=== PATIENT | female | born 1955 | race Caucasian/White ===

== ENCOUNTER → 2019-03-15 07:31 | Outpatient (CLI) | payer OTHER, SELFPAY ==
[2019-03-15 08:33] LABS: Absolute Lymphocyte Count 2.11 X10^3/uL (0.83-4.51); Absolute Neutrophil Count 4.6 X10^3/uL (2.0-7.7); Basophil# 0.07 X10^3/uL; Basophil% 0.9 % (0-1); Eosinophils% 2.7 % (0-5); Hematocrit 42.7 % (37-47); Hemoglobin 14.3 g/dL (12.0-15.0); Lymphocyte # 2.11 X10^3/ul (4.0); Lymphocyte % 28.1 % (19-41); Mean Corp Hgb Conc 33.5 g/dL (32-36); Mean Corpuscular Hgb 31.5 pg (27.0-32.0); Mean Corpuscular Volume 94.1 fL (81-99); Monocyte# 0.52 X10^3/uL; Monocyte% 6.9 % (0-10); NRBC Flagged by Analyzer 0 % (0-5); Neutrophil # 4.59 X10^3/uL (2.7-7.7); Platelet Count 224 K/mm3 (150-450); RBC Distribution Width CV 12.3 % (11.6-14.6); RBC Distribution Width SD 42.4 fl (35.1-43.9); Red Blood Count 4.54 M/mm3 (4.2-5.4); White Blood Count 7.5 K/mm3 (4.4-11.0)
[2019-03-15 09:19] LABS: AST(SGOT) 13 U/L (15-37); Alanine Aminotransfer ALT/SGPT 26 U/L (13-56); Albumin, Serum 3.5 g/dL (3.2-5.0); Alkaline Phosphatase 74 U/L (45-117); Anion Gap 7 (5-15); BUN 14 mg/dL (7-18); BUN/Creat Ratio 19.4 RATIO (10-20); Calcium,Total 8.8 mg/dL (8.5-10.1); Chloride 107 mmol/L (98-107); Cholesterol 208 mg/dL (200); Creatinine, Serum 0.72 mg/dL (0.55-1.02); EST Glomerular Filtration Rate 87 mL/min (>60); Est Glom Filt Rate - Afr Amer 105 mL/min (>60); Globulin 3.4 g/dL (2.2-4.2); Glucose 99 mg/dL (74-106); High Density Lipoprotein 43 mg/dL; Magnesium 2.3 mg/dL (1.6-2.6); Potassium 4.1 mmol/L (3.5-5.1); Protein, Total 6.9 g/dL (6.4-8.2); Sodium Level 141 mmol/L (136-145); Thyroid Stim Hormone (TSH) 3.16 uIU/mL (0.358-3.74); Triglycerides 209 mg/dL; Very Low Density Lipoprotein 42 mg/dL (5-40)
== END ==
PROVIDERS: Family Provider Family Medicine; PCP Family Medicine; Referring Provider Family Medicine; Visit Provider Family Medicine
DX: E78.5 Hyperlipidemia, unspecified (principal); I47.9 Paroxysmal tachycardia, unspecified; F41.0 Panic disorder [episodic paroxysmal anxiety]
CPT/HCPCS: 36415; 80053; 80061; 83735; 84439; 84443; 85025

== ENCOUNTER → 2019-07-19 12:19 | Outpatient (CLI) | payer OTHER, SELFPAY ==
--- NOTE | 2019-07-19 12:22 | BI_ITS ---
MAMMOGRAPHY - BILATERAL SCREENING REASON FOR EXAM: Female, 64 years old. Routine annual screening examination. PERTINENT HISTORY: Non-contributory. Remote bilateral breast reduction surgery. TECHNIQUE: Digital bilateral breast amisha (3D mammographic acquisition) in the CC and MLO projections. 2-D mediolateral oblique (MLO) and craniocaudad (CC) views of both breasts were obtained. CAD: Full Field Digital Mammography with Computer Added Detection was performed. COMPARISON: Comparison is made with prior study dated November 05, 2014 and October 30, 2013. FINDINGS: Breast Composition: The breasts are almost entirely fatty. There are no dominant masses or suspicious calcifications. Stable 2 cm well-defined fatty nodule in the upper lateral aspect of the right breast. This most like represents a fat necrosis. Stable deformity of the retroareolar region of the left breast in keeping with prior surgery. No other significant abnormalities are identified. There has been no significant change since the prior study. BI/SCREEN MAMM (CAD) W/AMISHA BILAT IMPRESSION: Stable bilateral screening mammogram. Yearly follow-up mammogram recommended. (A) ASSESSMENT CATEGORY: BIRADS Category 2: Benign. A letter regarding these results will be sent to the patient by the facility within 30 days. Approximately 10% of breast cancers are not detected by mammography. A normal mammogram should not delay biopsy of a clinically suspicious abnormality. [id number] Electronically Signed: Alfie Mcdonald, at 13:10 EST , Service support ,
== END ==
PROVIDERS: PCP Family Medicine; Referring Provider Family Medicine; Visit Provider Family Medicine
DX: Z12.31 Encounter for screening mammogram for malignant neoplasm of breast (principal)
CPT/HCPCS: 77063; 77067

== ENCOUNTER → 2022-07-09 | Outpatient (CLI) | payer BC, MEDICAID, SELFPAY ==
[2022-07-09 12:11] LABS: Absolute Lymphocyte Count 3.08 X10^3/uL (0.83-4.51); Absolute Neutrophil Count 5.9 X10^3/uL (2.0-7.7); Basophil# 0.08 X10^3/uL; Basophil% 0.8 % (0-1); Eosinophil# 0.25 X10^3/uL; Eosinophils% 2.5 % (0-5); Hematocrit 44.4 % (37-47); Hemoglobin 14.4 g/dL (12.0-15.0); Lymphocyte # 3.08 X10^3/ul (0.83-4.51); Lymphocyte % 30.7 % (19-41); Mean Corp Hgb Conc 32.4 g/dL (32-36); Mean Corpuscular Hgb 31.6 pg (27.0-32.0); Mean Corpuscular Volume 97.4 fL (81-99); Mean Platelet Vol. 11.1 fl (6.2-12.0); Monocyte# 0.65 X10^3/uL; Monocyte% 6.5 % (0-10); NRBC Flagged by Analyzer 0 % (0-5); Neutrophil # 5.94 X10^3/uL (2.7-7.7); Neutrophil % 59.2 % (47-70); Platelet Count 250 K/mm3 (150-450); RBC Distribution Width CV 12.9 % (11.6-14.6); RBC Distribution Width SD 46.1 fl (35.1-43.9); Red Blood Count 4.56 M/mm3 (4.2-5.4)
[2022-07-09 12:31] LABS: Anion Gap 5 (5-15); BUN 12 mg/dL (7-18); BUN/Creat Ratio 14.3 RATIO (10-20); Calcium,Total 8.9 mg/dL (8.5-10.1); Chloride 105 mmol/L (98-107); Cholesterol 228 mg/dL (200); Creatinine, Serum 0.84 mg/dL (0.55-1.02); EST Glomerular Filtration Rate 72 mL/min (>60); Est Glom Filt Rate - Afr Amer 87 mL/min (>60); Glucose 96 mg/dL (74-106); High Density Lipoprotein 46 mg/dL; Potassium 4.4 mmol/L (3.5-5.1); Sodium Level 142 mmol/L (136-145); Thyroid Stim Hormone (TSH) 3.59 uIU/mL (0.358-3.74); Triglycerides 344 mg/dL; Very Low Density Lipoprotein 69 mg/dL (5-40)
== END | disposition home or self-care (01) ==
PROVIDERS: PCP Family Medicine; Visit Provider Family Medicine
DX: Z13.220 Encounter for screening for lipoid disorders (principal); R53.83 Other fatigue
CPT/HCPCS: 36415; 80048; 80061; 84443; 85025

== ENCOUNTER → 2022-09-11 | Outpatient (CLI) | payer MEDICARE, SELFPAY ==
--- NOTE | 2022-09-11 13:50 | CT_ITS ---
STUDY: LOW DOSE CT LUNG CANCER SCREENING REASON FOR EXAM: Female, 67 years old. Current smoker. 50 pack-year history. RADIATION DOSAGE (If Supplied By Facility): CTDIvol = ( 2.39 ) mGy, DLP = ( 80.41 ) mGycm TECHNIQUE: No contrast was administered. Low dose technique was utilized (average mAS-38 and kVp 120). 1.25 mm axial source images with a slice interval of 1.25-mm were reconstructed in lung windows. 2.5 mm axial source images with a slice interval of 2.5-mm were reconstructed in lung windows. 5.0 mm axial source images with a slice interval of 5.0-mm were reconstructed in soft tissue windows. COMPARISON: None. NODULES: Total lung nodules (excluding granulomas): 0 Emphysema: No Endobronchial lesion: No Aorta: Normal CORONARY ARTERIES: Minimal coronary artery calcifications. Heart: Normal Pulmonary artery: Normal Mediastinal nodes: No Other chest and abdominal findings: Minimal degenerative changes of the thoracic spine. CT/Low Dose CT Lung Screening IMPRESSION: Lung-RADS category 1 - Continue annual screening with LDCT in 12 months. IMPORTANT NOTES FOR USE: ACR Lung-RADS Version 1.1 Assessment Categories Release Date: 2018 Category: Coded 0-4 bases on nodule(s) with highest degree of suspicion. Negative screen is defined as categories 1 and 2; a positive screen is defined as categories 3 and 4. Category 3 and 4A nodules that are unchanged on interval CT should be coded as category 2, and individuals returned to screening in 12 months. Category 4X: Category 3 or 4 nodules with additional imaging findings that increase the suspicion of lung cancer, such as spiculation, GGN that doubles in size in 1 year, enlarged lymph notes, etc. Category Modifiers: S (significant finding unrelated to lung cancer) Electronically Signed: Daryl Leblanc DO at 23:32 EDT Reading Location ID and State: [address] [place] [address] Tel [phone], Service support ,
--- NOTE | 2022-09-11 14:01 | BI_ITS ---
MAMMOGRAPHY - BILATERAL SCREENING REASON FOR EXAM: Female, 67 years old. Routine annual screening examination. PERTINENT HISTORY: Non-contributory. History of prior bilateral breast reduction surgery. History of left breast scar. TECHNIQUE: Digital bilateral breast amisha (3D mammographic acquisition) in the CC and MLO projections. 2-D mediolateral oblique (MLO) and craniocaudad (CC) views of both breasts were obtained. CAD: Full Field Digital Mammography with Computer Added Detection was performed. COMPARISON: Comparison is made with prior study dated July 19, 2019 and November 05, 2014. FINDINGS: Breast Composition: The breasts are almost entirely fatty. There are no dominant masses or suspicious calcifications. Stable 2 cm well-defined fat containing nodule in the upper lateral aspect of the right breast. Stable deformity of the retroareolar region of the left breast in keeping with prior surgery and postoperative scarring. Stable small benign-appearing bilateral axillary lymph nodes. No other significant abnormalities are identified. There has been no significant change since the prior study. BI/SCRN MAMM (CAD)W/AMISHA BILAT IMPRESSION: Stable bilateral screening mammogram. Yearly follow-up mammogram recommended. (A) ASSESSMENT CATEGORY: BIRADS Category 2: Benign. A letter regarding these results will be sent to the patient by the facility within 30 days. Approximately 10% of breast cancers are not detected by mammography. A normal mammogram should not delay biopsy of a clinically suspicious abnormality. [id number] Electronically Signed: Alfie Mcdonald MD at 15:22 EDT ,
== END | disposition home or self-care (01) ==
PROVIDERS: PCP Family Medicine; Visit Provider Family Medicine
DX: Z12.31 Encounter for screening mammogram for malignant neoplasm of breast (principal); Z87.891 Personal history of nicotine dependence; Z85.3 Personal history of malignant neoplasm of breast
CPT/HCPCS: 71271; 77063; 77067

== ENCOUNTER → 2023-02-04 | Outpatient (CLI) | payer MEDICARE, SELFPAY ==
[2023-02-04 12:35] LABS: AST(SGOT) 16 U/L (15-37); Alanine Aminotransfer ALT/SGPT 34 U/L (13-56); Albumin, Serum 3.6 g/dL (3.2-5.0); Alkaline Phosphatase 71 U/L (45-117); Bilirubin, Direct 0.11 mg/dL (0.00-0.30); Cholesterol 148 mg/dL (200); Globulin 3.2 g/dL (2.2-4.2); High Density Lipoprotein 42 mg/dL; Protein, Total 6.8 g/dL (6.4-8.2); Triglycerides 263 mg/dL; Very Low Density Lipoprotein 53 mg/dL (5-40)
== END | disposition home or self-care (01) ==
LOC: BFHLAB 08:45
PROVIDERS: PCP Family Medicine; Referring Provider Family Medicine; Visit Provider Family Medicine
DX: E78.1 Pure hyperglyceridemia (principal)
CPT/HCPCS: 36415; 80061; 80076

== ENCOUNTER → 2023-08-05 | Outpatient (CLI) | payer MEDICARE, SELFPAY ==
[2023-08-05 10:20] LABS: Absolute Lymphocyte Count 2.55 X10^3/uL (0.83-4.51); Absolute Neutrophil Count 4.5 X10^3/uL (2.0-7.7); Basophil# 0.08 X10^3/uL; Eosinophil# 0.19 X10^3/uL; Eosinophils% 2.4 % (0-5); Hematocrit 42.4 % (37-47); Hemoglobin 13.9 g/dL (12.0-15.0); Lymphocyte # 2.55 X10^3/ul (0.83-4.51); Lymphocyte % 32.4 % (19-41); Mean Corp Hgb Conc 32.8 g/dL (32-36); Mean Corpuscular Hgb 31.5 pg (27.0-32.0); Mean Corpuscular Volume 96.1 fL (81-99); Mean Platelet Vol. 10.6 fl (6.2-12.0); Monocyte# 0.53 X10^3/uL; Monocyte% 6.7 % (0-10); NRBC Flagged by Analyzer 0 % (0-5); Neutrophil # 4.51 X10^3/uL (2.7-7.7); Neutrophil % 57.2 % (47-70); Platelet Count 216 K/mm3 (150-450); RBC Distribution Width CV 12.6 % (11.6-14.6); RBC Distribution Width SD 44.7 fl (35.1-43.9); Red Blood Count 4.41 M/mm3 (4.2-5.4); White Blood Count 7.9 K/mm3 (4.4-11.0)
--- OUTSIDE RECORDS SUMMARY | 2023-08-05 10:35 | XMS RPT_ITS | CCD ---
Author Name Unknown Address [address] [place] [address] Organization [facility] Care Team Providers Care Rivet Flunky Name Role Phone Maisha Sanchez Unavailable Unavailable Josef LOCK, Branden Craft Unavailable [phone] Ame Urrutia Unavailable Unavailable Allergies Allergy Classification Reported Allergen(s) Allergy Type Date of Onset Reaction(s) Facility (3 sources) oxyCODONE drug allergy 12-31-[address] [facility] Work Phone: Medications Completed/Discontinued Medications Medication Drug Class(es) Dates Sig (Normalized) Sig (Original) metFORMIN hydrochloride 500 mg oral tablet (2 sources) Biguanide Start: 12-31-2016 take 1 tablet by mouth twice daily GLUCOPHAGE 500 MG TABS One tablet by mouth twice daily METFORMIN HCL [id number] Branden Bahena MD Drug Treatment Unknown - unknown (1 source) No information available. Problems Active Problems Problem Classification Problem Date Documented Da te Episodic/Chronic Other upper respiratory disease (2 sources) Seasonal allergy; Translations: [Other seasonal allergic rhinitis] Onset: 12-31-2016 12-31-2016 Chronic Unclassified (1 source) No current problems or disability 12-31-2016 Past or Other Problems Problem Classification Problem Date Documented Da te Episodic/Chronic Anal and rectal conditions (2 sources) Rectal prolapse; Translations: [Rectal prolapse] Onset: 12-31-2016 12-31-2016 Episodic Gastrointestinal hemorrhage (2 sources) Hematochezia; Translations: [Melena] Onset: 12-31-2016 01-01-2017 Episodic Hemorrhoids (2 sources) Other hemorrhoids; Translations: [Other hemorrhoids] Onset: 12-31-2016 12-31-2016 Episodic Results Test Name Value Interpretation Reference Range Facil ity Vital Signs Date Time Vital Sign Value Performing Clinician Facility 12-31-2016 14:11-0400 BMI (Body Mass Index) 30.38 kg/m2 Branden Bahena MD [facility] [employer] Work Phone: 12-31-2016 14:11-0400 Body Temperature 97.7 [degF] Branden Bahena MD [facility] [employer] Work Phone: 12-31-2016 14:11-0400 BP Diastolic 75 mm[Hg] Branden Bahena MD [facility] [employer] Work Phone: 12-31-2016 14:11-0400 BP Systolic 106 mm[Hg] Branden Bahena MD [facility] [employer] Work Phone: 12-31-2016 14:11-0400 Height 172.72 cm Branden Bahena MD [facility] [employer] Work Phone: 12-31-2016 14:11-0400 Pulse (Heart Rate) 93 /min Branden Bahena MD [facility] [employer] Work Phone: 12-31-2016 14:11-0400 Respiratory Rate 20 /min Branden Bahena MD [facility] [employer] Work Phone: 12-31-2016 14:11-0400 Weight 90.63 kg Branden Bahena MD [facility] [employer] Work Phone: Procedures Date Procedure Procedure Detail Performing Clinician Start: 12-31-2016 End: 12-31-2016 Dietary management education, guidance, and counseling Branden Bahena MD Plan of Treatment Date Care Activity Detail Author Start: 12-31-2016 End: 12-31-[address] [facility] Work Phone: Start: 12-31-2016 End: 01-04-2017 Colonoscopy flx dx w/collj spec when pfrmd Colonoscopy [facility] [employer] Work Phone: Summary Purpose Family History No Family History Records Found Advance Directives No Advanced Directives Records Found Additional Source Comments INFORMATION SOURCE (unrecogn ized section and content) FOR RECORDS PERTAINING TO PATIENTS WHO ARE OR HAVE BEEN ENROLLED IN A CHEMICAL DEPENDENCY/SUBSTANCEABUSE PROGRAM, SOME INFORMATION MAY BE OMITTED. This clinical summary was aggregated from multiple sources. Caution should be exercised in using it in the provision of clinical care. This summary normalizes information from multiple sources, and as a consequence, information in this document may materially change the coding, format and clinical context of patient data. In addition, data may be omitted in some cases. CLINICAL DECISIONS SHOULD BE BASED ON THE PRIMARY CLINICAL RECORDS. [facility]. provides no warranty or guarantee of the accuracy or completeness of information in this document.
[2023-08-05 10:57] LABS: AST(SGOT) 19 U/L (15-37); Alanine Aminotransfer ALT/SGPT 27 U/L (13-56); Albumin, Serum 3.5 g/dL (3.2-5.0); Alkaline Phosphatase 80 U/L (45-117); Anion Gap 3 (5-15); BUN 15 mg/dL (7-18); BUN/Creat Ratio 18.8 RATIO (10-20); Calcium,Total 8.9 mg/dL (8.5-10.1); Chloride 110 mmol/L (98-107); Cholesterol 174 mg/dL (200); EST Glomerular Filtration Rate 76 mL/min (>60); Est Glom Filt Rate - Afr Amer 92 mL/min (>60); Globulin 3.5 g/dL (2.2-4.2); Glucose 95 mg/dL (74-106); High Density Lipoprotein 44 mg/dL; Potassium 4.1 mmol/L (3.5-5.1); Sodium Level 143 mmol/L (136-145); Triglycerides 302 mg/dL; Very Low Density Lipoprotein 60 mg/dL (5-40)
[2023-08-05 11:10] LABS: Hemoglobin A1c 5.6 % (3.8-5.6)
== END | disposition home or self-care (01) ==
LOC: LAB 09:43
PROVIDERS: PCP Family Medicine; Referring Provider Nurse Practitioner Family; Visit Provider Nurse Practitioner Family
DX: E78.5 Hyperlipidemia, unspecified (principal); I10 Essential (primary) hypertension; R73.01 Impaired fasting glucose
CPT/HCPCS: 36415; 80053; 80061; 83036; 85025

== ENCOUNTER → 2023-09-13 | Outpatient (CLI) | payer MEDICARE, SELFPAY ==
--- NOTE | 2023-09-13 09:44 | BI_ITS ---
MAMMOGRAPHY - BILATERAL SCREENING REASON FOR EXAM: Female, 68 years old. Routine annual screening examination. PERTINENT HISTORY: Non-contributory. History of prior bilateral breast reduction surgery. TECHNIQUE: Digital bilateral breast amisha (3D mammographic acquisition) in the CC and MLO projections. 2-D mediolateral oblique (MLO) and craniocaudad (CC) views of both breasts were obtained. CAD: Full Field Digital Mammography with Computer Added Detection was performed. COMPARISON: Comparison is made with prior study dated September 11, 2022 and July 19, 2019. FINDINGS: Breast Composition: The breasts are almost entirely fatty. There are no dominant masses or suspicious calcifications. Stable 2 cm well-defined fat-containing nodule in the upper lateral aspect of the right breast suggestive of fat necrosis. Stable deformity of the retroareolar region of the left breast and keep with prior surgical intervention. Stable small benign-appearing bilateral axillary lymph nodes. No other significant abnormalities are identified. There has been no significant change since the prior study. BI/SCRN MAMM (CAD)W/AMISHA BILAT IMPRESSION: Stable bilateral screening mammogram. Yearly follow-up mammogram recommended. (A) ASSESSMENT CATEGORY: BIRADS Category 2: Benign. A letter regarding these results will be sent to the patient by the facility within 30 days. Approximately 10% of breast cancers are not detected by mammography. A normal mammogram should not delay biopsy of a clinically suspicious abnormality. [id number] Electronically Signed: Alfie Mcdonald MD at 11:18 EDT ,
== END | disposition home or self-care (01) ==
LOC: OPBI 09:42
PROVIDERS: PCP Family Medicine; Referring Provider Nurse Practitioner Family; Visit Provider Nurse Practitioner Family
DX: Z12.31 Encounter for screening mammogram for malignant neoplasm of breast (principal)
CPT/HCPCS: 77063; 77067

== ENCOUNTER 2023-10-05 08:07 | Outpatient (CLI) | payer MEDICARE, SELFPAY ==
--- NOTE | 2023-10-05 08:17 | BD_ITS ---
STUDY: DUAL ENERGY X-RAY ABSORPTIOMETRY / DXA REASON FOR EXAM: Female, 68 years old. 733.00OsteoporosisBONE DENSITY REASON FOR EXAM TECHNIQUE: Bone Mineral Density (BMD) measurements of lumbar spine and bilateral hips were obtained. COMPARISON: None. FINDINGS: Lumbar Spine (L1-L4): g/cm2 (1.380) / T-score (3.6) / Z-score (5.4) Findings are suggestive of normal bone density with a low fracture risk. Left Femur Total: g/cm2 (1.264) / T-score (2.6) / Z-score (3.9) Left Femoral Neck: g/cm2 (1.013) / T-score (1.5) / Z-score (3.1) Right Femur Total: g/cm2 (1.245) / T-score (2.5) / Z-score (3.8) Right Femoral Neck: g/cm2 (0.999) / T-score (1.4) / Z-score (2.9) BD/Dexa Bone Density Study IMPRESSION: The patient is considered normal as outlined below according to World Ismael Organization (WHO) criteria with a low fracture risk. Reference Information: The T-score is the number of standard deviations above or below the standard which is normal for young adults at their peak bone mineral density. The World Health Organization (WHO) interprets the T-scores as follows: Above -1 Normal bone density Between -1 and -2.5 Osteopenia Equal to / or below -2.5 Osteoporosis As a practical clinical guideline, osteopenia may be graded as follows: Mild -1 through -1.5 Moderate -1.6 through -2.0 Severe -2.1 through -2.4 The Z-score is the number of standard deviations above or below age-matched controls. A Z-score of less than -1.5 would be considered abnormal. References: 1. NIH Osteoporosis and Related Bone Diseases www osteo.org 2. International Society for Clinical Densitometry www iscd.org 3. National Osteoporosis Foundation www nof.org Electronically Signed: Alfie Mcdonald MD at 11:04 EDT ,
== END 2023-10-05 23:59 | disposition home or self-care (01) ==
LOC: OPBD 08:08
PROVIDERS: PCP Family Medicine; Referring Provider Nurse Practitioner Family; Visit Provider Nurse Practitioner Family
DX: Z13.820 Encounter for screening for osteoporosis (principal); M85.89 Other specified disorders of bone density and structure, multiple sites
CPT/HCPCS: 77080

== ENCOUNTER → 2024-08-16 | Outpatient (CLI) | payer MEDICARE, SELFPAY ==
[2024-08-16 06:34] LABS: Absolute Lymphocyte Count 1.88 X10^3/uL (0.83-4.51); Absolute Neutrophil Count 3.1 X10^3/uL (2.0-7.7); Basophil# 0.05 X10^3/uL; Basophil% 0.9 % (0-1); Eosinophil# 0.18 X10^3/uL; Eosinophils% 3.2 % (0-5); Hematocrit 38.7 % (37-47); Hemoglobin 12.7 g/dL (12.0-15.0); Lymphocyte # 1.88 X10^3/ul (0.83-4.51); Lymphocyte % 33.5 % (19-41); Mean Corp Hgb Conc 32.8 g/dL (32-36); Mean Corpuscular Volume 94.4 fL (81-99); Mean Platelet Vol. 10.1 fl (6.2-12.0); Monocyte# 0.38 X10^3/uL; Monocyte% 6.8 % (0-10); NRBC Flagged by Analyzer 0 % (0-5); Neutrophil % 55.2 % (47-70); Platelet Count 206 K/mm3 (150-450); RBC Distribution Width CV 12.8 % (11.6-14.6); White Blood Count 5.6 K/mm3 (4.4-11.0)
[2024-08-16 07:07] LABS: ALB/GLOB Ratio 1.7 RATIO (0.9-2.4); AST(SGOT) 18 U/L (<=31); Alanine Aminotransfer ALT/SGPT 21 U/L (<=34); Albumin, Serum 4.2 g/dL (3.4-4.8); Alkaline Phosphatase 63 U/L (35-104); Anion Gap 11 (5-15); BUN 12 mg/dL (4-19); BUN/Creat Ratio 15.3 RATIO (10-20); Calcium 8.8 mg/dL (7.6-11.0); Carbon Dioxide 26.3 mmol/L (22.0-29.0); Chloride 105 mmol/L (96-108); Cholesterol 190 mg/dL (<=200); Creatinine, Serum 0.8 mg/dL (0.6-1.0); EST Glomerular Filtration Rate 80 (>60); Globulin 2.5 g/dL (2.2-4.2); Glucose 102 mg/dL (70-99); High Density Lipoprotein 64 mg/dL; Low Density Lipoprotein Calc. 72 mg/dL; Potassium 4.2 mmol/L (3.3-5.1); Protein, Total 6.6 g/dL (5.9-8.4); Sodium Level 142 mmol/L (133-145); Total Bilirubin 0.35 mg/dL (0.00-1.30); Triglycerides 274 mg/dL; Very Low Density Lipoprotein 55 mg/dL (5-40); cholesterol:hdl ratio screen 2.99
[2024-08-16 19:43] LABS: Hemoglobin A1c 5.9 % (<=5.6)
== END | disposition home or self-care (01) ==
LOC: LAB 06:16
PROVIDERS: PCP Family Medicine; Referring Provider Family Medicine; Visit Provider Family Medicine
DX: E78.5 Hyperlipidemia, unspecified (principal); I10 Essential (primary) hypertension; R73.01 Impaired fasting glucose
CPT/HCPCS: 36415; 80053; 80061; 83036; 85025

== ENCOUNTER → 2024-08-26 | Outpatient (CLI) | payer MEDICARE, SELFPAY ==
--- NOTE | 2024-08-26 07:47 | CT_ITS ---
PROCEDURE: LOW DOSE CT LUNG SCREENING REASON FOR EXAM: Personal history of nicotine dependence TECHNIQUE: Low Dose CT Lung Screening without contrast COMPARISON: None. FINDINGS: Heart size is within normal limits. No significant pericardial effusion. Mild LAD coronary artery calcifications. Normal caliber thoracic aorta and pulmonary arteries. No bulky adenopathy. No suspicious findings in the visualized upper abdomen. Superficial soft tissues are within normal limits. Central airways are patent. No acute infiltrates, pleural effusion or pneumothorax. Mostly calcified 5 mm nodule in the posterior right lower lobe. No other nodules or masses. No acute osseous abnormality. CT/Low Dose CT Lung Screening IMPRESSION: 1. BASED ON THE ACR LUNG RADS FOR THE MOST SUSPICIOUS NODULE (IF ANY) DESCRIBE D IN THIS REPORT, THE OVERALL LUNG RADS SCORE IS 1. 2. SMOKING CESSATION COUNSELING IS RECOMMENDED IF THE PATIENT IS STILL SMOKING . 3. Coronary artery calcifications. One or more dose reduction techniques were used (e.g., Automated exposure contr ol, adjustment of the mA and/or kV according to patient size, use of iterative reconstruction technique). The following information is provided for reference:Lung-RADS 2021 Assessment C ategories. Additional information involving Lung-RADS is available at www.acr.org. 0-INCOMPLETE 1-NEGATIVE:No nodules or definitely benign nodules. Complete, central, popcorn , or centric ring calcifications OR fat containing 2-BENIGN APPEARANCE (based on imaging features or indolent behavior). Juxtaple ural nodule: < 10mm AND solid; smooth margins; oval, lentiform, or triangular shape Solid nodule: <6mm at baseline or new< 4mm Part solid Nodule: < 6mm total mean diameter at baseline Nonsolid nodule:(GGN) < 30mm OR >=30mm stable or slowly growing Airway nodule, subsegmental at baseline, new, or stable Category 3 nodule stabl e or decreased in size at 6-month follow-up CT or Category 3 or 4A nodules that resolve on follow-up OR category 4B findings prov en to be benign following diagnotic work up. 3 - Probably Benign (Based on imaging features or behavior) Solid Nodule: >= 6 to <8mm at baseline OR new 4 to <6mm Part-solid nodule: >= 6mm toal mean diam. with solid component <6mm at baseline OR new < 6mm total mean diam. Non-solid nodule: GGN >= 30mm at baseline or new Atypical pulmonary cyst: Growing cystic component (mean diam.) of thick-walled cyst Category 4A nodule stable or decreased in size at 3-month follow-up CT (excl.ai rway). 4A - Suspicious Solid nodule: >=8 to < 15mm at baseline OR growing < 8mm OR new 6 to < 8mm Part solid nodule: >= 6mm total mean diam. w/ solid component >=6mm to < 8mm at baseline OR new or growing < 4mm solid component Airway nodule, segmental or more proximal at baseline or new Atypical pulmonary cyst: Thick-walled OR multilocular at baseline OR becomes mu ltilocular 4B - Very Suspicious Airway nodule, segmental or more proximal, and stable or growing Solid nodule: >= 15mm at baseline OR new or growing >= 8mm Part solid nodule: Solid component >= 8mm OR new or growing >= 4mm solid compon ent Atypical pulmonary cyst: Thick-walled with growing wall thickness/nodularity OR Growing multilocular (mean diam.) OR Multilocular with increased loculation or new/increased opacity Slow-growing solid or part solid nodule w/ growth over multiple screening exams 4X - Very Suspicious Category 3 or 4 nodules with additional features that increase the suspicion fo r lung cancer. S - Clinically Significant or potentially significant findings (non-lung cancer ) Reading Location: [facility]
== END | disposition home or self-care (01) ==
LOC: CT 07:45
PROVIDERS: PCP Family Medicine; Referring Provider Family Medicine; Visit Provider Family Medicine
DX: Z12.2 Encounter for screening for malignant neoplasm of respiratory organs (principal); Z87.891 Personal history of nicotine dependence
CPT/HCPCS: 71271

== ENCOUNTER → 2024-09-13 | Outpatient (CLI) | payer MEDICARE, SELFPAY ==
--- NOTE | 2024-09-13 11:55 | BI_ITS ---
EXAM: SCRN MAMM (CAD)W/AMISHA BILAT DATE: 09/13/2024 CLINICAL HISTORY: F, Age 69 y/o , SCREENING The patient has had bilateral breast reduction surgery. BREAST CANCER RISK ASSESSMENT: Does not appear to have been calculated. TECHNIQUE: Bilateral screening digital breast tomosynthesis with 2D and 3D images. Computer aided detection. COMPARISON: Prior exam(s) dated 09/13/1999 and 09/11/2022. FINDINGS: TISSUE DENSITY: The breast tissue is almost entirely fatty. Bilateral Breast Mammographic Findings: No suspicious masses or suspicious microcalcifications are seen in either breast. Stable architectural distortion is seen in both breasts from prior breast reduction surgery. Benign-appearing round microcalcifications and macrocalcifications are seen. There is no mammographic abnormality identified in either breast to suggest malignancy. BI/SCRN MAMM (CAD)W/AMISHA BILAT IMPRESSION: Right Breast: BIRADS 2 BENIGN FINDING. Left Breast: BIRADS 2 BENIGN FINDING. OVERALL FINAL ASSESSMENT: BIRADS 2 BENIGN FINDING RECOMMENDATION: Routine annual follow-up in 1 Year A letter with findings and recommendations will be mailed to the patient. Reading Location: [id number]
== END | disposition home or self-care (01) ==
LOC: OPBI 11:54
PROVIDERS: PCP Family Medicine; Referring Provider Family Medicine; Visit Provider Family Medicine
DX: Z12.31 Encounter for screening mammogram for malignant neoplasm of breast (principal)
CPT/HCPCS: 77063; 77067

== ENCOUNTER 2024-11-24 09:33 | Outpatient (CLI) | payer MEDICARE, SELFPAY ==
--- NOTE | 2024-11-24 09:36 | RAD_ITS ---
EXAM: XR Left Knee Complete, 4 or More Views CLINICAL INDICATION: PAIN IN KNEE TECHNIQUE: Four or more views of the left knee. COMPARISON: No relevant prior studies available. FINDINGS: BONES/JOINTS: Unremarkable. No acute fracture. No dislocation. SOFT TISSUES: Unremarkable. RAD/Knee 4 or More Views IMPRESSION: No acute fracture. Reading Location: [id number]
== END 2024-11-24 23:59 | disposition home or self-care (01) ==
LOC: MTRAD 09:34
PROVIDERS: PCP Family Medicine; Referring Provider Family Medicine; Visit Provider Family Medicine
DX: M25.562 Pain in left knee (principal)
CPT/HCPCS: 73564

== ENCOUNTER 2024-12-19 19:27 | Emergency (ER) | payer MEDICARE, SELFPAY ==
[2024-12-19] VITALS (9 sets, daily range): BP systolic 102–126; BP diastolic 69–84; PULSE 78–107; RESP 15–24; TEMP 36.1; O2SAT 85–98; BMI 30.2
--- NOTE | 2024-12-19 19:33 | EKG12_ITS ---
Test Reason : PALPITATIONS Blood Pressure : */* mmHG Vent. Rate : 105 BPM Atrial Rate : 105 BPM P-R Int : 154 ms QRS Dur : 78 ms QT Int : 350 ms P-R-T Axes : 29 -3 22 degrees QTcB Int : 462 ms Sinus tachycardia Inferior infarct , age undetermined Cannot rule out Anterior infarct , age undetermined Abnormal ECG Confirmed by IRIS LOCK, LYNETTE ([id number]), editorial intern JESSICA SCHMIDT ([id number]) on 12/20/2024 1:49:44 PM Referred By: DARBY Confirmed By: LYNETTE SIMMONS MD
--- NOTE | 2024-12-19 19:33 | EKG12_ITS ---
Test Reason : PALPITATIONS Blood Pressure : */* mmHG Vent. Rate : 105 BPM Atrial Rate : 105 BPM P-R Int : 154 ms QRS Dur : 78 ms QT Int : 350 ms P-R-T Axes : 29 -3 22 degrees QTcB Int : 462 ms Sinus tachycardia Inferior infarct , age undetermined Cannot rule out Anterior infarct , age undetermined Abnormal ECG Confirmed by IRIS LOCK, LYNETTE ([id number]), commissioning editor JESSICA SCHMIDT ([id number]) on 12/20/2024 1:49:44 PM Referred By: DARBY Confirmed By: LYNETTE SIMMONS MD
--- NOTE | 2024-12-19 19:33 | RAD_ITS ---
PROCEDURE: CHEST 1 VIEW (PORTABLE) 12/19/2024 REASON FOR EXAM: CHEST PAIN TECHNIQUE: Frontal view of the chest. COMPARISON: CT chest on 08/26/2024 FINDINGS: Hardware: None Heart: Not significantly enlarged. Aortic atherosclerosis. Lungs: No focal consolidation or pleural effusion. Eventration of the right hemidiaphragm. Bones: Degenerative changes are identified within the thoracic spine. RAD/Chest 1 View (Portable) IMPRESSION: No acute cardiopulmonary abnormality. Reading Location: [facility]
--- NOTE | 2024-12-19 19:33 | RAD_ITS ---
PROCEDURE: CHEST 1 VIEW (PORTABLE) 12/19/2024 REASON FOR EXAM: CHEST PAIN TECHNIQUE: Frontal view of the chest. COMPARISON: CT chest on 08/26/2024 FINDINGS: Hardware: None Heart: Not significantly enlarged. Aortic atherosclerosis. Lungs: No focal consolidation or pleural effusion. Eventration of the right hemidiaphragm. Bones: Degenerative changes are identified within the thoracic spine. RAD/Chest 1 View (Portable) IMPRESSION: No acute cardiopulmonary abnormality. Reading Location: [facility]
[2024-12-19 20:04] LABS: Hematocrit 38.6 % (37-47); Hemoglobin 13.2 g/dL (12.0-15.0); Immature Granulocytes Count 0.060 X10^3/uL (0.0-0.0); Mean Corp Hgb Conc 34.2 g/dL (32-36); Mean Corpuscular Volume 90.8 fL (81-99); Mean Platelet Vol. 10.5 fl (6.2-12.0); NRBC Flagged by Analyzer 0 % (0-5); Platelet Count 204 K/mm3 (150-450); RBC Distribution Width CV 12.2 % (11.6-14.6); RBC Distribution Width SD 40.3 fl (35.1-43.9); Red Blood Count 4.25 M/mm3 (4.2-5.4); White Blood Count 12.0 K/mm3 (4.4-11.0)
--- NOTE | 2024-12-19 20:28 | CT_ITS ---
PROCEDURE: CTA CHEST W/WO CONTRAST 12/19/2024 REASON FOR EXAM: PE, SHORTNESS OF BREATH TECHNIQUE: CTA CHEST W/WO CONTRAST Multiplanar Sagittal and Coronal images were obtained. 3D post processing was performed CONTRAST: Isovue 370 VOLUME: 100 mL One or more dose reduction techniques were used (e.g., Automated exposure control, adjustment of the mA and/or kV according to patient size, use of iterative reconstruction technique). RADIATION DOSE SUMMARY: CTDlvol: 14.3 mGy DLP: 445 mGycm COMPARISON: CT chest 08/26/2024 FINDINGS: Hardware: None. Lymph nodes: No significant lymphadenopathy. Heart: There is bowing of the interventricular septum towards the left ventricle. RV/LV Diameter Ratio is approximately 2. Mild coronary calcifications. Thoracic Aorta: No thoracic aortic aneurysm or dissection. Calcified atherosclerosis. Pulmonary Vessels: There are pulmonary emboli bilaterally coming beginning at the right interlobar artery and distal aspect of the left main pulmonary artery, and extending into the lobar, segmental, and subsegmental branches in every lobe. The main pulmonary artery measures 2.9 cm in diameter, at the upper limit of normal. Lungs and Airways: Central airways are predominantly clear. Calcified granuloma in the right lower lobe. No focal consolidation. Pleura: No effusion. Upper Abdomen: There is reflux of contrast into the IVC and hepatic veins. Bones: Unremarkable CT/CTA Chest W/WO Contrast IMPRESSION: 1. Extensive bilateral pulmonary emboli, with the most proximal emboli located at the right interlobar artery and distal left main pulmonary artery. 2. Findings which are worrisome for right heart strain including bowing of the interventricular septum and reflux of contrast into the hepatic veins. [place] Alert: Pulmonary emboli with suggestion of right heart strain The critical information above was relayed directly by me by telephone to Derik Diego on 12/19/2024 at 9:13 pm with readback verification. Reading Location: [id number]
[2024-12-19 20:33] LABS: Anion Gap 15 (5-15); BUN 14 mg/dL (4-19); BUN/Creat Ratio 16.4 RATIO (10-20); Calcium,Total 9.5 mg/dL (7.6-11.0); Carbon Dioxide 23.7 mmol/L (21.0-32.0); Chloride 100 mmol/L (98-108); Estimated Creatinine Clearance 73.76 ml/min (50-250); Glucose 142 mg/dL (70-99); Potassium 3.5 mmol/L (3.3-5.1)
[2024-12-19 20:39] LABS: Troponin T High Sensitivity 55 ng/L (<=14)
--- NOTE | 2024-12-19 20:42 | ED.VIS.CHEST ---
HPI History of Present Illness Chief Complaint: Palpitations Narrative Narrative: Chief complaint and HPI: Palpitations. 69-year-old female with past medical history of HLD presents for evaluation of palpitations and exertional shortness of breath. Patient states for the past 3 days she has been having progressively worsening exertional shortness of breath. Denies any orthopnea. Denies any bilateral lower extremity swelling or pain. Patient denies any chest pain but states with her exertional dyspnea she develops palpitations. States she recently had surgery approximately 1 month ago on her teeth. Not on blood thinners. She denies any fever, chills, URI symptoms, cough, abdominal pain, nausea, vomiting. Review of systems: See HPI Medications: As listed on the chart Allergies: As listed on the chart PFSH: Per chart Vital signs: As listed on the chart. Reviewed. Physical exam: Gen: A&O x3, NAD Head: Normocephalic, atraumatic Eyes: No sclera icterus, conjunctiva clear ENT: Moist mucous membranes Neck: Trachea midline, No JVD CV: Tachycardic, regular rhythm, no murmurs, no peripheral edema Resp: Lungs CTA BL, no w/r/c, on 2 L nasal cannula GI: Abd soft, non-distended, non-tender, no r/r/g Musc: Full ROM, no deformity Skin: Warm, dry Neuro: Alert, oriented, grossly intact, sensation intact Psych: Cooperative, appropriate mood and affect [facility] Medical History Hyperlipemia Hx of smoking Dental implant pain Home Medications ?Medication ?Instructions ?Recorded ?Last Taken ?Type atorvastatin 10 mg tablet 10 mg PO QHS 12/19/24 Unknown History fenofibrate nanocrystallized 145 145 mg PO DAILY 12/19/24 Unknown History mg tablet Held on 12/19/24. Instructions: stop taking d/t knee pain multivitamin .ROUTE 12/19/24 Unknown History Allergy/AdvReac Type Severity Reaction Status Date / Time No Known Allergies Allergy Verified 12/19/24 19:27 Surgical History H/O: hysterectomy Hx of breast reduction, elective Social History Smoking Status: Heavy Smoker (>10/day) EXAM Physical Exam Const Vital Signs: 12/19/24 19:27 12/19/24 19:28 12/19/24 19:33 Temperature 97 F L Temperature Source Temporal Pulse Rate 107 H Respiratory Rate 16 Respiratory Effort Blood Pressure 120/79 Blood Pressure Mean 92 Pulse Ox 95 87 95 Oxygen Delivery Method Nasal Cannula Room Air Oxygen Flow Rate (L/min) 2 2 12/19/24 20:13 12/19/24 20:27 12/19/24 20:44 Temperature Temperature Source Pulse Rate 91 Respiratory Rate 19 H Respiratory Effort Short of Breath Blood Pressure 122/84 H Blood Pressure Mean 96 Pulse Ox 85 94 Oxygen Delivery Method Room Air Nasal Cannula Oxygen Flow Rate (L/min) 2 12/19/24 20:49 12/19/24 21:50 12/19/24 22:00 Temperature 98.1 F Temperature Source Pulse Rate 88 82 79 Respiratory Rate 24 H 19 H 18 Respiratory Effort Blood Pressure 102/69 110/73 123/74 H Blood Pressure Mean 80 85 90 Pulse Ox 98 99 95 Oxygen Delivery Method Nasal Cannula Nasal Cannula Oxygen Flow Rate (L/min) 2 2 MDM MDM MDM Narrative Medical decision making narrative: 69-year-old female with past medical history of HLD presents for evaluation of palpitations and exertional shortness of breath. Associated symptoms are palpitations. Patient recently had surgery approximately 1 month ago on her teeth. Patient was found to be hypoxic at 87% on room air. Placed on 2 L nasal cannula with improvement in oxygen saturations. Otherwise vitals are unremarkable except for mild tachycardia. Differential diagnosis includes but is not limited to PE, ACS, pneumonia, CHF, electrolyte abnormality, [place], thyroid disease. Patient currently not having any chest pain. NS bolus ordered with CTA chest given high risk for PE. CBC with leukocytosis of 12. No anemia. Platelets unremarkable. BMP relatively unremarkable except for hyperglycemia. Magnesium level unremarkable. TSH unremarkable. Troponin elevated at 55. Although patient is not having any chest pain aspirin ordered. BNP elevated at 2686. CT chest positive for PE. Patient has extensive bilateral pulmonary emboli with the most proximal emboli located at the right interlobar artery and distal left main pulmonary artery. Findings worsen for right heart strain including bowing of the interventricular septum and reflux of contrast into the hepatic veins. I personally spoke to radiology about the findings. IV heparin ordered with bolus. Patient was updated of all the results. On reevaluation, patient's tachycardia has resolved. Her vitals are stable without hypotension. I spoke with her hospitalist service, Dr. Wan. Agrees that patient will meet ICU admission however recommends me talking to vascular for possible thrombectomy candidate. I reached out to [facility] And spoke to their critical care team Dr. Elder. Agrees that patient may be a thrombectomy candidate and accepted admission to their ICU. Transport will be arranged once ICU bed is available. Patient was updated on the plan and confirmed understanding of the plan. Patient now does endorse that she has been having left knee pain with some swelling prior to surgery. States that she was told she had a Hutson's cyst in there however nobody ever ruled out a DVT. I do not have ultrasound available at this time to evaluate for DVT. This will need to be performed at outlying facility. EKG: Interpreted by me/EM physician: EKG shows sinus tachycardia with a heart rate of 105. Patient has nonspecific ST changes. I do not have a previous EKG to compare Diagnostic: Interpreted by me/EM physician: Chest x-ray without cardiomegaly, pneumothorax, pneumonia, effusion. Radiology in agreement. 45 minutes of critical care time utilized in managing the patient. This is due to high probability of and deterioration of the patient based on the patient's condition and excludes any separately billable procedures. Impression: 1. Submassive bilateral pulmonary embolisms 2. Elevated troponin secondary to #1 3. Acute hypoxia requiring nasal cannula oxygen, secondary to #1 4. Elevated BNP secondary to #1 and right heart strain Lab Data Labs: Laboratory Results - last 24 hr 12/19/24 12/19/24 12/19/24 19:47 21:28 21:55 WBC 12.0 H RBC 4.25 Hgb 13.2 Hct 38.6 MCV 90.8 MCH 31.1 MCHC 34.2 RDW Std Deviation 40.3 RDW Coeff of Carey 12.2 Plt Count 204 MPV 10.5 Immature Gran % (Auto) 0.500 Neut % (Auto) 76.9 H Lymph % (Auto) 14.3 L [place] % (Auto) 6.8 Eos % (Auto) 1.1 Baso % (Auto) 0.4 Absolute Neuts (auto) 9.2 H Absolute Lymphs (auto) 1.72 Nucleated RBC % 0 PT 13.9 INR 1.1 APTT 24.9 Sodium 138 Potassium 3.5 Chloride 100 Carbon Dioxide 23.7 Anion Gap 15 BUN 14 Creatinine 0.87 Estim Creat Clear Calc 73.76 Est GFR (MDRD) Non-Af 73 BUN/Creatinine Ratio 16.4 Glucose 142 H Calcium 9.5 Magnesium 1.8 Troponin T High Sens 55 H* Troponin T Hi Sens 2 Hr 48 H NT pro BNP II 2686 H TSH 2.930 Radiography Diagnostic Testing: Clinical Impression(s) from Imaging Studies Chest X-Ray 12/19/24 19:33 IMPRESSION: No acute cardiopulmonary abnormality. Reading Location: [id number] Chest CTA 12/19/24 20:28 IMPRESSION: 1. Extensive bilateral pulmonary emboli, with the most proximal emboli located at the right interlobar artery and distal left main pulmonary artery. 2. Findings which are worrisome for right heart strain including bowing of the interventricular septum and reflux of contrast into the hepatic veins. [place] Alert: Pulmonary emboli with suggestion of right heart strain The critical information above was relayed directly by me by telephone to Derik Rader on 12/19/2024 at 9:13 pm with readback verification. Reading Location: [id number] Discharge Plan Triage Chief Complaint: Palpitations ED Provider: Derik Rader Dx/Rx/DC Orders Prescriptions: No Action fenofibrate nanocrystallized 145 mg tablet 145 mg PO DAILY atorvastatin 10 mg tablet 10 mg PO QHS multivitamin [Daily Multivitamin] .ROUTE Primary Care Provider: Ginna Armstrong Referrals: Ginna Armstrong MD [Primary Care Provider] - Print Language: Malawian
[2024-12-19] MEDS: 0.9% Normal Saline (1000mL) 1,000 ML 999 ML IV (20:49)
[2024-12-19 21:05] LABS: Magnesium 1.8 mg/dL (1.5-2.2); Pro- Brain NATRIURETIC PEPTIDE 2686 pg/mL (<=900)
[2024-12-19 21:43] LABS: Prothrombin Time (Protime)PT. 13.9 SECONDS (11.7-14.9)
[2024-12-19 21:45] LABS: Partial Thromboplast Time 24.9 Seconds (24.1-36.2)
[2024-12-19] MEDS: HEPARIN/D5w 25,000 UNITS 25,000 UNITS/250 ML IV.SOLN. 10 UNITS CONT INF (21:49)
[2024-12-19] MEDS: Heparin Injection (Vial) 5,000 UNIT/ML VIAL 4000 UNIT IV (21:49)
--- NOTE | 2024-12-19 22:16 | PCM.HP.STD ---
HPI - General General Date of Admission: 12/19/24 Date of Service: 12/19/24 Chief Complaint: SOB and Palpitations. HPI Narrative MARY MO, is a 69 F with a past medical history of hyperlipidemia; on atorvastatin, obesity; with BMI of 30.3 this admission, history of tobacco abuse, history of hysterectomy, history of elective breast reduction surgery, OA and recent dental surgery ~1 month ago to extract most of her teeth who presents to [facility] ER complaining of shortness of breath and palpitations. Ms. Mo reports her acute symptoms began approximately 3 days prior to arrival with dyspnea on exertion that gradually progressed to shortness of breath at rest. She denies lower extremity edema orthopnea but she does admit to chronic Left knee pain. She is not currently on blood thinners and she has no history of VTE. There was no report of fever, chills, URI symptoms, cough, abdominal pain, nausea, vomiting, diarrhea, constipation, headache or rash. In the ER she was noted to have CTA of the chest with IV contrast that revealed extensive bilateral pulmonary emboli with the most proximal emboli located at the Right interlobular artery and distal Left main pulmonary artery with findings which are worrisome for Right Heart Strain including bowing of the interventricular septum and reflux of contrast into the hepatic veins complicated by laboratory evidence of elevated initial troponin T of 55 ng/L suspected to be due to Acute Cardiac Strain with a corresponding confirmatory elevated NT pro-BNP II of 2,686 pg/mL present on admission consistent with AE CHF; of uncertain type due to Acute Right Heart Strain from PE with additional laboratory evidence of Leukocytosis of 12K present on admission suspected to be due to acute stress response compounded by clinical evidence of Acute Respiratory Insufficiency with patient requiring 2L NC. I personally spoke with the ER physician to contact the vascular surgeon on-call about this case due to concerning CT findings and laboratory markers. She was then admitted to the ICU for ongoing care for a stay that is expected to extend beyond 2 midnights. REPLACED BY [facility] Medical History Hyperlipemia Hx of smoking Dental implant pain Home Medications ?Medication ?Instructions ?Recorded ?Last Taken ?Type atorvastatin 10 mg tablet 10 mg PO QHS 12/19/24 Unknown History fenofibrate nanocrystallized 145 145 mg PO DAILY 12/19/24 Unknown History mg tablet Held on 12/19/24. Instructions: stop taking d/t knee pain multivitamin .ROUTE 12/19/24 Unknown History Allergy/AdvReac Type Severity Reaction Status Date / Time No Known Allergies Allergy Verified 12/19/24 19:27 Surgical History H/O: hysterectomy Hx of breast reduction, elective Social History Smoking Status: Heavy Smoker (>10/day) ROS ROS Narrative Review of Systems: Constitutional: Patient denies fever or chills. Eyes: Patient denies changes in vision or discharge from eyes. ENT: Patient denies runny nose, sore throat or ear pain. Resp: Patient admits to shortness of breath but she denies cough. CV: Patient admits to palpitations but she denies heart racing or lower extremity edema. GI: Patient denies abdominal pain, nausea, vomiting, diarrhea or constipation. : Patient denies dysuria or hematuria. MSK: Patient denies arthralgias or myalgias. Skin: Patient denies rash, abscess, wounds or jaundice. Psych: Patient denies symptoms of uncontrolled depression or anxiety. Neuro: Patient denies headache, paresthesias or focal neurologic deficits. Allergy: Patient denies lip swelling, tongue swelling or urticaria. Hematology: Patient denies easy bleeding or easy bruisability. Endocrinology: Patient denies polyuria, polydipsia, polyphagia or heat/cold intolerance. 14 point ROS otherwise negative save for positives noted above in HPI. Vital Signs Vital Signs Vital Signs: 12/19/24 19:27 12/19/24 19:28 12/19/24 19:33 Temperature 97 F L Temperature Source Temporal Pulse Rate 107 H Respiratory Rate 16 Respiratory Effort Blood Pressure 120/79 Blood Pressure Mean 92 Pulse Ox 95 87 95 Oxygen Delivery Method Nasal Cannula Room Air Oxygen Flow Rate (L/min) 2 2 12/19/24 20:13 12/19/24 20:27 12/19/24 20:44 Temperature Temperature Source Pulse Rate 91 Respiratory Rate 19 H Respiratory Effort Short of Breath Blood Pressure 122/84 H Blood Pressure Mean 96 Pulse Ox 85 94 Oxygen Delivery Method Room Air Nasal Cannula Oxygen Flow Rate (L/min) 2 12/19/24 20:49 12/19/24 21:50 12/19/24 22:00 Temperature 98.1 F Temperature Source Pulse Rate 88 82 79 Respiratory Rate 24 H 19 H 18 Respiratory Effort Blood Pressure 102/69 110/73 123/74 H Blood Pressure Mean 80 85 90 Pulse Ox 98 99 95 Oxygen Delivery Method Nasal Cannula Nasal Cannula Oxygen Flow Rate (L/min) 2 2 Weight Weight: 199 lb 1.239 oz Body Mass Index (BMI) 30.2 Physical Exam Const alert and oriented x3 Constitutional Narrative: Mild distress noted. General Appearance: cooperative HEENT normocephalic, head/scalp atraumatic, hearing grossly normal bilaterally and moist oral mucous membranes Eyes PERRL, EOMs intact bilaterally and conjunctivae normal Neck no lymphadenopathy, supple and no JVD Resp normal respiratory effort, no retractions, no use of accessory muscles and clear to auscultation bilaterally Cardio regular rate and regular rhythm GI normal to inspection, nondistended, normoactive bowel sounds, soft to palpation, non-tender and non-distended GI Narrative: Obese. Extremity normal to inspection, full ROM and no clubbing, cyanosis or edema Skin Skin Narrative: Patient has evidence of rash, abscess, wounds or jaundice. Neuro oriented x3, CN's II-XII intact bilaterally, moves all extremities and no focal motor deficits Sensorium / Orientation: awake, alert, oriented to person, oriented to place and oriented to time Speech: speech normal Psych affect normal Results Medical Records Data Attestation: I reviewed the patient's medical records Lab / Micro Data Attestation: I reviewed the patient's lab results. 12/19/24 19:47 12/19/24 19:47 Labs: Laboratory Results - last 24 hr 12/19/24 19:47: WBC 12.0 H, RBC 4.25, Hgb 13.2, Hct 38.6, MCV 90.8, MCH 31.1, MCHC 34.2, RDW Std Deviation 40.3, RDW Coeff of Carey 12.2, Plt Count 204, MPV 10.5, Immature Gran % (Auto) 0.500, Neut % (Auto) 76.9 H, Lymph % (Auto) 14.3 L, [place] % (Auto) 6.8, Eos % (Auto) 1.1, Baso % (Auto) 0.4, Absolute Neuts (auto) 9.2 H, Absolute Lymphs (auto) 1.72, Nucleated RBC % 0, Sodium 138, Potassium 3.5, Chloride 100, Carbon Dioxide 23.7, Anion Gap 15, BUN 14, Creatinine 0.87, Estim Creat Clear Calc 73.76, Est GFR (MDRD) Non-Af 73, BUN/Creatinine Ratio 16.4, Glucose 142 H, Calcium 9.5, Magnesium 1.8, Troponin T High Sens 55 H*, NT pro BNP II 2686 H, TSH 2.930 12/19/24 21:28: PT 13.9, INR 1.1, APTT 24.9 Imaging Radiology Impression Chest X-Ray 12/19/24 19:33 IMPRESSION: No acute cardiopulmonary abnormality. Reading Location: [id number] Chest CTA 12/19/24 20:28 IMPRESSION: 1. Extensive bilateral pulmonary emboli, with the most proximal emboli located at the right interlobar artery and distal left main pulmonary artery. 2. Findings which are worrisome for right heart strain including bowing of the interventricular septum and reflux of contrast into the hepatic veins. [place] Alert: Pulmonary emboli with suggestion of right heart strain The critical information above was relayed directly by me by telephone to Derik Rader on 12/19/2024 at 9:13 pm with readback verification. Reading Location: [id number] Assessment & Plan Assessment/Plan PLAN: Plan 1. CTA of the chest with IV contrast that revealed extensive bilateral pulmonary emboli with the most proximal emboli located at the Right interlobular artery and distal Left main pulmonary artery with findings which are worrisome for Right Heart Strain including bowing of the interventricular septum and reflux of contrast into the hepatic veins - Admit to ICU. Continue IV heparin begun in ER and titrate per PE protocol. Check bilateral lower extremity Doppler to evaluate for residual DVT. Check echocardiogram to confirm suspicion of acute right heart strain suspected on CT imaging. Give acetaminophen as needed for [id number] (level 1-5/10) pain or fever. Give morphine IV as needed for severe (level 6-10/10) pain. Finally, we will consult vascular surgery to see this patient on rounds in the a.m. for further recommendations without appreciated in advance. 2. Elevated initial troponin T of 55 ng/L suspected to be due to Acute Cardiac Strain attributable to #1 - Serialize troponin. Give aspirin daily. 3. Elevated NT pro-BNP II of 2,686 pg/mL present on admission consistent with AE CHF; of uncertain type due to Acute Right Heart Strain from PE complicating #1 & #2 - Echocardiogram pending for #1. Check daily NT pro-BNP II to follow trend. Finally, we will consult [facility] to see this patient on rounds in the a.m. for further recommendations with help appreciated in advance. 4. Acute Respiratory Insufficiency with patient requiring 2L NC due to #1 - #3 - Wean supplemental oxygen as tolerated. 5. Leukocytosis of 12K present on admission suspected to be due to acute stress response arising from #1 - #4 - No evidence of acute infection at this time. Check CBC daily to follow trend. 6. Recent dental surgery ~1 month ago to extract most of her teeth - Noted as likely precipitating event. 7. Obesity; with BMI of 30.3 this admission adding to the burden of disease outlined from #1 - #6 - Weight loss will be recommended. Check TSH. This complicates her case and may hamper recovery. 8. Hyperlipidemia; on atorvastatin - Maintain statin and check lipid profile in light of #2. 9. History of tobacco abuse - Tobacco Cessation will be strongly encouraged with nicotine patch however to control cravings. 10. History of hysterectomy - Noted. 11. History of elective breast reduction surgery - Noted for the sake of completeness. 12. OA - Give acetaminophen prn as per scale outlined in #1. 13. DVT prophylaxis - Patient already on IV heparin for #1. Total time: Approximately (but not less than) 75 minutes. Charges/Coding Visit Charges Inpatient E&M: 26989 Init Hosp L3
[2024-12-19 22:32] LABS: Troponin T High Sens 2 HR 48 ng/L (<=14)
[2024-12-20] VITALS: BP 104/71; PULSE 81; RESP 16; O2SAT 95
[2024-12-20 00:01] VITALS: BP 104/57; PULSE 81; RESP 16; TEMP 36.8; O2SAT 95
== END 2024-12-20 00:21 | disposition short-term general hospital (02) ==
PROVIDERS: Emergency Provider Surgery; PCP Family Medicine; Visit Provider Surgery
DX: R00.2 Palpitations (principal); I26.99 Other pulmonary embolism without acute cor pulmonale; E78.5 Hyperlipidemia, unspecified; Z79.899 Other long term (current) drug therapy; F17.200 Nicotine dependence, unspecified, uncomplicated; R79.89 Other specified abnormal findings of blood chemistry; R09.02 Hypoxemia; R06.02 Shortness of breath
CPT/HCPCS: 71045; 71275; 80048; 83735; 83880; 84443; 84484; 85025; 85610; 85730; 93005; 96361; 96365; 96366; 99285; Q9967; A4216

== ENCOUNTER 2024-12-27 21:24 | Emergency (ER) | payer MEDICARE, SELFPAY ==
[2024-12-27 21:24] VITALS: BP 104/71; PULSE 99; RESP 18; TEMP 37.1; O2SAT 98
[2024-12-27 22:16] VITALS: BMI 30.7
--- NOTE | 2024-12-27 23:00 | RAD_ITS ---
PROCEDURE: KNEE 3 VIEWS 12/27/2024 REASON FOR EXAM: PAIN TECHNIQUE: KNEE 3 VIEWS COMPARISON: 11/24/2024 FINDINGS: No acute fracture or dislocation. Alignment is anatomic. Minimal medial tibiofemoral joint space narrowing. Small nonspecific suprapatellar joint effusion. No aggressive osseous lesion. No appreciable soft tissue swelling or radiopaque foreign body. RAD/Knee 3 Views IMPRESSION: No acute fracture, dislocation, or substantial degenerative arthrosis. Nonspecific small suprapatellar joint effusion, similar to prior exam. Reading Location: [id number]
[2024-12-27 23:02] LABS: Hematocrit 31.5 % (37-47); Hemoglobin 10.4 g/dL (12.0-15.0); Immature Granulocytes Count 0.040 X10^3/uL (0.0-0.0); Mean Corp Hgb Conc 33.0 g/dL (32-36); Mean Corpuscular Volume 94.3 fL (81-99); Mean Platelet Vol. 10.4 fl (6.2-12.0); NRBC Flagged by Analyzer 0 % (0-5); POSITIVE DIFFERENTIAL YES; Platelet Count 216 K/mm3 (150-450); RBC Distribution Width CV 13.3 % (11.6-14.6); RBC Distribution Width SD 45.5 fl (35.1-43.9); Red Blood Count 3.34 M/mm3 (4.2-5.4); White Blood Count 7.3 K/mm3 (4.4-11.0)
[2024-12-27 23:15] LABS: Prothrombin Time (Protime)PT. 18.4 SECONDS (11.7-14.9)
[2024-12-27 23:16] LABS: Partial Thromboplast Time 35.1 Seconds (24.1-36.2)
[2024-12-27 23:23] LABS: CRP 16.00 mg/L (0.0-3.0)
[2024-12-27 23:24] VITALS: BP 109/62; PULSE 73; RESP 16; O2SAT 94
[2024-12-27 23:35] LABS: Anion Gap 13 (5-15); BUN 11 mg/dL (4-19); BUN/Creat Ratio 14.3 RATIO (10-20); Calcium,Total 9.2 mg/dL (7.6-11.0); Carbon Dioxide 20.9 mmol/L (21.0-32.0); Chloride 106 mmol/L (98-108); Estimated Creatinine Clearance 80.86 ml/min (50-250); Glucose 174 mg/dL (70-99); Potassium 4.2 mmol/L (3.3-5.1)
[2024-12-28] MEDS: Lidocaine 2% /Epi 1:100 (20ml) 20 ML VIAL INFILT
--- NOTE | 2024-12-28 00:52 | EX.ED.DYSGE1 ---
HPI History of Present Illness Chief Complaint: Lower Extremity Injury Informant: patient Narrative Narrative: Patient is a 69-year-old female with past medical history of hyperlipidemia. She states she was recently diagnosed with a left lower extremity DVT as well as pulmonary embolus and underwent a thrombectomy. She states she is currently on Eliquis. She reports that she has been having left knee/leg pain for weeks and was managing it with Tylenol and Motrin. She states that as she is now on Eliquis because of her PE and DVT she can no longer take the Motrin and is only doing Tylenol. She states she had a cortisone injection in the left knee but there has been no symptom improvement. She states has been no recent trauma but notes that she has been having increasing pain and swelling to the left knee. She states that this to the point where [id number] medications are not helping and secondary to this she comes in for evaluation. [facility] Medical History (Updated 12/28/24 @ 05:[address] Haider Orozco, DO) DVT (deep venous thrombosis) Hyperlipemia Hx of smoking Dental implant pain Home Medications ?Medication ?Instructions ?Recorded ?Last Taken ?Type atorvastatin 10 mg tablet 10 mg PO QHS 12/19/24 Unknown History fenofibrate nanocrystallized 145 145 mg PO DAILY 12/19/24 Unknown History mg tablet Held on 12/19/24. Instructions: stop taking d/t knee pain multivitamin .ROUTE 12/19/24 Unknown History oxycodone-acetaminophen 5 mg-325 1 tab PO Q6H PRN pain 3 days #12 12/28/24 Unknown Rx mg tablet (Percocet) tabs Allergy/AdvReac Type Severity Reaction Status Date / Time apixaban (From Eliquis) Allergy Mild Rash Verified 12/27/24 21:25 Family History no significant family his Surgical History H/O: hysterectomy Hx of breast reduction, elective Social History Smoking Status: Former smoker ROS ROS ED Constitutional Constitutional ED: Denies chills or fever(s) ENT ENT ED: Denies sore throat Cardiovascular Cardiovascular: Denies chest pain Respiratory/Chest Respiratory/Chest: Denies cough or dyspnea Gastrointestinal Gastrointestinal: Denies abdominal pain, diarrhea, nausea or vomiting Musculoskeletal Musculoskeletal: Reports other Details: Positive left knee pain and swelling Neurologic Neurologic: Denies headache(s) Hematologic/Lymphatic Hematologic/Lymphatic: Reports easy bleeding and easy bruising EXAM Physical Exam Const Vital Signs: 12/27/24 21:24 12/27/24 23:24 12/28/24 01:00 Temperature 98.7 F Temperature Source Oral Pulse Rate 99 73 75 Respiratory Rate 18 16 16 Blood Pressure 104/71 109/62 100/44 L Blood Pressure Mean 82 77 62 Pulse Ox 98 94 98 Oxygen Delivery Method Room Air Room Air Room Air 12/28/24 01:05 Temperature 98.0 F Temperature Source Pulse Rate 79 Respiratory Rate 16 Blood Pressure 100/44 L Blood Pressure Mean 62 Pulse Ox 98 Oxygen Delivery Method Positive well nourished and well developed General Appearance ED: well developed HEENT HEENT Narrative: Normocephalic atraumatic Eyes PERRL and EOMs intact bilaterally General Eye ED: Negative for scleral icterus Neck supple Resp normal respiratory effort and clear to auscultation bilaterally Cardio regular rate and regular rhythm Extremity Extremity Narrative: Left lower extremity is neurovascularly intact. Patellar tendon is intact and knee ligaments are stable. There is a moderate effusion noted. There is faint warmth of the left knee compared to right but no asymmetric erythema. No lymphangitic streaking. No crepitance palpated Compartments are soft and compressible going against compartment syndrome No obvious abscess or cellulitis noted. Active range of motion is decreased secondary to pain but patient can still lift the left leg off the bed and straight leg fashion and can flex the left knee to approximately 90 degrees Neuro oriented x3, CN's II-XII intact bilaterally and no sensory deficits noted Sensorium / Orientation: alert Psych mental status grossly normal Skin Skin Narrative: Mild soft tissue swelling/joint effusion with faint asymmetric warmth of the left knee compared to the right as documented above MDM MDM MDM Narrative Medical decision making narrative: Patient arrived to the ER with stable vitals and reported worsening knee pain and swelling without trauma. Differential diagnosis is for joint effusion versus patellar tendon injury versus hemarthrosis versus cellulitis. As the patient is afebrile does not have leukocytosis or left shift my concern that she has a potential infection such as cellulitis abscess or septic joint is low. The x-ray did confirm an effusion and I feel that with her worsening pain and symptoms and the new onset swelling that the effusion is most likely causing the new symptoms. Therefore I did elect to perform a joint aspiration of the left knee as documented below. After the joint was aspirated the patient did report feeling better. The synovial fluid was sent for evaluation and there are no crystals present to suggest gout or pseudogout and no significant poly nuclear white blood cells to indicate infection. Therefore now that joint has been aspirated and the patient is feeling better and vitals and laboratory studies do not suggest secondary infection I do not feel there is need for emergent orthopedic consultation. Patient will be prescribed pain medication and can follow-up with them as an outpatient Patient had the left knee flexed to approximately 45 degrees. The site was cleaned and prepped in sterile fashion with chlorhexidine. The knee was anesthetized using 6 mL of 2% lidocaine with epinephrine. Following anesthesia a 20-gauge was inserted along the lateral aspect of the left knee underneath the patella and into the joint space. There was return of thin watery yellow joint fluid. A total of 35 cc were aspirated. The joint effusion resolved with aspiration. The insertion site was covered with a Band-Aid and then the knee was wrapped in an Blayne wrap. Patient tolerated procedure well without complication. History & Record Review Discussion w/independent historian: Patient Lab Data Attestation: I reviewed the patient's lab results. Labs: Laboratory Results - last 24 hr 12/27/24 12/28/24 22:51 01:05 WBC 7.3 RBC 3.34 L Hgb 10.4 L Hct 31.5 L MCV 94.3 MCH 31.1 MCHC 33.0 RDW Std Deviation 45.5 H RDW Coeff of Carey 13.3 Plt Count 216 MPV 10.4 Immature Gran % (Auto) 0.500 Neut % (Auto) 88.7 H Lymph % (Auto) 6.4 L Bradford % (Auto) 1.4 Eos % (Auto) 2.9 Baso % (Auto) 0.1 Absolute Neuts (auto) 6.5 Absolute Lymphs (auto) 0.47 L Nucleated RBC % 0 ESR 24 PT 18.4 H INR 1.5 APTT 35.1 Sodium 140 Potassium 4.2 Chloride 106 Carbon Dioxide 20.9 L Anion Gap 13 BUN 11 Creatinine 0.76 Estim Creat Clear Calc 80.86 Est GFR (MDRD) Non-Af 87 BUN/Creatinine Ratio 14.3 Glucose 174 H Lactic Acid 2.1 H* Calcium 9.2 C-React Prot Ext Range 16.00 H Fluid Source Cancelled Fluid Color Cancelled Fluid Appearance Cancelled Fluid WBC Cancelled Fluid RBC Cancelled Fluid Tot Cell Count Cancelled Fld Polynuclear WBCs # Cancelled Fld Polynuclear WBCs % Cancelled Fluid Mononuclear WBCs Cancelled Fld Mononuclear WBCs % Cancelled Fluid Neutrophils Cancelled Fluid Lymphocytes Cancelled Fluid Monocytes Cancelled Fluid Plasma Cells Cancelled Fluid Macrophages Cancelled Fld Mesothelial Cells Cancelled Fluid Other Cells Cancelled Fluid Crystals NO CRYSTALS SEEN Fluid Crystal Source SYNOVIAL Fl Crystal Path Review Will follow Fl Pathologist Comment Cancelled Fluid Comment 2 Cancelled Synovial Source L KNEE Synovial Color Yellow Synovial Appearance Clear Synovial Volume 20.0 H Synovial Viscosity Sl. Viscous Synovial WBC 0.0640 H Synovial RBC 0.003 H Synovial Tot Cell Ct 0.0650 H Synov Polynuclear WBCs 0.006 Synov Mononuclear WBCs 0.058 Synovial Neutrophils 11 Synovial Lymphocytes 28 Synovial Monocytes 61 Synovial Polynuclear % 9.4 Synovial Mononuclear % 90.[address] Comment May follow Radiography Diagnostic Testing: Clinical Impression(s) from Imaging Studies Knee X-Ray 12/27/24 23:00 IMPRESSION: No acute fracture, dislocation, or substantial degenerative arthrosis. Nonspecific small suprapatellar joint effusion, similar to prior exam. Reading Location: [facility] Left knee x-ray as interpreted by the emergency medicine physician reveals no acute fracture or dislocation. It does show mild arthritic changes with small to moderate effusion. Discharge Plan Triage Chief Complaint: Lower Extremity Injury ED Provider: Haider Orozco Dx/Rx/DC Orders Clinical Impression: Effusion of knee joint, left, DVT (deep venous thrombosis), Current use of manager intermediate anticoagulation, Hyperlipidemia Instructions: ED Knee Effusion Prescriptions: New oxycodone-acetaminophen [Percocet] 5-325 mg tablet 1 tab PO Q6H PRN (Reason: pain) 3 Days Qty: 12 0RF No Action fenofibrate nanocrystallized 145 mg tablet 145 mg PO DAILY atorvastatin 10 mg tablet 10 mg PO QHS multivitamin [Daily Multivitamin] .ROUTE Primary Care Provider: Ginna Armstrong Referrals: Ginna Armstrong MD [Primary Care Provider] - Gurpreet Kahn MD [Med Staff - Active Staff] - Activity Restrictions/Additional Instructions: Please follow-up with your orthopedic surgeon for repeat evaluation as I feel the increased pain was due to a joint effusion. Continue your home medication as previously directed by the Percocet for improved pain control. Return to the ER should you have any further concerns Print Language: Fijian Disposition Disposition: Home, Self Care Discharge Date/Time: 12/28/24 01:18
[2024-12-28 01:00] VITALS: BP 100/44; PULSE 75; RESP 16; O2SAT 98
[2024-12-28 01:05] VITALS: BP 100/44; PULSE 79; RESP 16; TEMP 36.7; O2SAT 98
[2024-12-28 02:01] LABS: Synovial Fld Mononuclear WBC # 0.058 10^3/ul; Synovial Fld Mononuclear WBC % 90.6 %; Synovial Fld Polynuclear WBC # 0.006 10^3/uL; Synovial Fld Polynuclear WBC % 9.4 %; Total Cell Count Synovial Fld 0.0650 10^3/uL (0.000-0.000); WBC / Synovial Fluid 0.0640 10^3/uL (0.000-0.002)
[2024-12-28 02:15] LABS: RBC /Synovial Fluid 0.003 10^6/uL (0)
[2024-12-28 02:16] LABS: AUTO B FLUID DILUENT BKGD CT WBC <0.1 RBC <0.01 (W<.1,R<.01); Appearance /Synovial Fluid Clear (CLEAR); Color / Synovial Fluid Yellow (Pale Yellow); Source / Synovial Fluid L KNEE; Source- Body Fluid SYNOVIAL
[2024-12-28 02:56] LABS: Reflex Lactate? Y
[2024-12-28 03:10] LABS: CRYSTALS, BODY FLUID NO CRYSTALS SEEN; Total Volume / Synovial Fluid 20.0 ml (0.1-3.5); Viscosity / Synovial Fluid Sl. Viscous (HIGH)
[2024-12-28 03:13] LABS: Monocyte /Synovial Fluid 61 %
[2024-12-28 03:14] LABS: Body Fluid QC Type(s) BF1,BF2
== END 2024-12-28 01:18 | disposition home or self-care (01) ==
PROVIDERS: Emergency Provider Emergency Medicine; PCP Family Medicine; Visit Provider Emergency Medicine
DX: M25.462 Effusion, left knee (principal); I82.409 Acute embolism and thrombosis of unspecified deep veins of unspecified lower extremity; E78.5 Hyperlipidemia, unspecified; Z87.891 Personal history of nicotine dependence; Z79.01 Long term (current) use of anticoagulants; Z79.899 Other long term (current) drug therapy; Z90.710 Acquired absence of both cervix and uterus
CPT/HCPCS: 20610; 73562; 80048; 83605; 85025; 85610; 85652; 85730; 86140; 87070; 87075; 87205; 89050; 89051; 89060; 96374; 96375; 99282; A4216; J2405

== ENCOUNTER → 2025-02-23 | Outpatient (CLI) | payer MEDICARE, SELFPAY ==
--- NOTE | 2025-02-23 12:49 | ECHOD_ITS ---
Reason For Study Reason For Study: Pulmonary embolism Procedure This was a 2D Doppler, Color Flow transthoracic echocardiogram. Exam performed in department. Left Ventricle Normal LV size. The estimated ejection fraction is 60 %. No evidence for diastolic dysfunction. No regional wall motion abnormalities noted. Right Ventricle Normal RV size. Normal systolic function. Atria The left and right atria are normal. No doppler evidence for ASD. Mitral Valve There is no mitral valve stenosis. Trivial mitral valve insufficiency. Tricuspid Valve There is no tricuspid stenosis. Trivial tricuspid valve insufficiency. Unable to estimate RV systolic pressure due to insufficient tricuspid regurgitant envelope. Aortic Valve Trisinus/trileaflet aortic valve. There is no aortic stenosis. No aortic valve insufficiency. Pulmonic Valve There is no pulmonic valvular stenosis. No pulmonic valve insufficiency. Great Vessels Normal sized aortic root. Pericardium/Pleural No pericardial effusion. MMode/2D Measurements & Calculations LVIDd: 3.9 cm IVSd: 1.0 cm Ao root diam: 3.2 cm LVIDs: 2.5 cm LVPWd: 1.0 cm RVDd: 3.0 cm FS: 34.9 % LAV(MOD-bp): 41.5 ml LVAd ap4: 22.8 cm2 LVAd ap2: 19.8 cm2 LAV(MOD-bp) Indexed: 21.0 ml/m2 LVLd ap4: 7.2 cm LVLd ap2: 7.2 cm LAV(MOD-sp2): 35.7 ml EDV(MOD-sp4): 59.5 ml EDV(MOD-sp2): 44.6 ml LAV(MOD-sp4): 48.4 ml EDV(sp4-el): 61.2 ml EDV(sp2-el): 46.3 ml LVAs ap4: 11.6 cm2 LVAs ap2: 11.4 cm2 LVLs ap4: 5.7 cm LVLs ap2: 6.1 cm ESV(MOD-sp4): 21.0 ml ESV(MOD-sp2): 18.3 ml ESV(sp4-el): 20.0 ml ESV(sp2-el): 18.3 ml EF(MOD-sp4): 64.8 % EF(MOD-sp2): 59.0 % EF(sp4-el): 67.3 % SV(MOD-sp4): 38.5 ml SV(MOD-sp2): 26.3 ml SV(sp4-el): 41.2 ml SI(MOD-sp4): 19.5 ml/m2 SI(MOD-sp2): 13.3 ml/m2 LA A4 area: 17.3 cm2 RA A4 area: 13.9 cm2 TAPSE: 2.4 cm Time Measurements MV dec time: 0.17 sec Doppler Measurements & Calculations Lat Peak E' Wayne: 12.0 cm/sec Med Peak E' Wayne: 7.7 cm/sec MV V2 max: 89.2 cm/sec MV max P.2 mmHg MV V2 mean: 46.6 cm/sec MV mean P.0 mmHg MV V2 VTI: 15.4 cm MV P1/2t max wayne: 47.6 cm/sec Ao V2 max: 141.4 cm/sec LV V1 max: 102.4 cm/sec MV P1/2t: 64.1 msec Ao max P.0 mmHg LV V1 max P.2 mmHg Ao V2 mean: 100.9 cm/sec LV V1 mean P.3 mmHg MV dec slope: 217.4 cm/sec2 Ao mean P.6 mmHg LV V1 mean: 72.7 cm/sec MVA(P1/2t): 3.4 cm2 Ao V2 VTI: 25.8 cm LV V1 VTI: 17.7 cm AV (velocity ratio): 0.69 PA V2 max: 103.1 cm/sec TR max wayne: 202.6 cm/sec PA V2 mean: 73.5 cm/sec TR max P.4 mmHg ECHO/Echo Complete Interpretation Summary The estimated ejection fraction is 60 %. No evidence for diastolic dysfunction. Trivial mitral valve insufficiency. Ordering Physician: Baldomero Dickerson Referring Physician: Ginna Armstrong Performed By: Deja Stallworth, FÁTIMA, RVT
--- OUTSIDE RECORDS SUMMARY | 2025-02-23 18:42 | XMS RPT_ITS | CCD ---
Author Organization [facility] Care Team Providers Care Motor Pool Driver Name Role Phone Maisha Sanchez Unavailable Unavailable Josef LOCK, Branden Craft Unavailable Ame Urrutia Unavailable Unavailable Unavailable Primary Care Provider UnavailDr. Ginna Brooks MD Primary Care Provider Nathaniel LOCK, Dr. Chacko Attending Provider Dr. Ginna Armstrong MD Referring Provider Dr. Ginna Armstrong MD Primary Care Provider Dr. Ginna Armstrong MD Attending Provider Dr. Ginna Armstrong MD Referring Provider Dr. Gustavo Rader DO Emergency Provider Ginna Armstrong MD Primary Care Provider Dr. Ginna Armstrong MD Primary Care Provider Dr. Ginna Armstrong MD Attending Provider Dr. Ginna Armstrong MD Referring Provider Dr. Gustavo Rader DO Attending Provider Dr. Haider Orozco DO Emergency Provider GINNA ARMSTRONG Primary Care Unavailable GLO STORY Admitting Unavail able GALI ZHENG Consulting Unavail able FROILAN PANTOJA Attending Unavail able GUSTAVO GARZA Referring Unavailable Dr. Ginna Armstrong MD Primary Care Provider Nathaniel LOCK, Dr. Chacko Attending Provider [phone] Dr. Ginna Armstrong MD Referring Provider [phone] Dr. Haider Orozco DO Attending Provider Dr. Baldomero Dickerson DO Attending Provider Miedel, Ginna Referring Unavailable Miedel, Ginna Primary Care Unavailable Miedel, Ginna Attending Unavailable Miedel, Ginna Referring Unavailable Miedel, Ginna Primary Care Unavailable Miedel, Ginna Attending Unavailable Miedel, Ginna Referring Unavailable Baldomero Dickerson Attending Unavailable Miedel, Ginna Primary Care Unavailable Miedel, Ginna Attending Unavailable Miedel, Ginna Referring Unavailable Miedel, Ginna Primary Care Unavailable Miedel, Ginna Attending Unavailable Miedel, Ginna Referring Unavailable Miedel, Ginna Primary Care Unavailable Haider Orozco Attending Unavailable Miedel, Ginna Primary Care Unavailable Baldomero Dickerson Attending Unavailable Baldomero Dickerson Referring Unavailable Miedel, Ginna Primary Care Unavailable Gustavo Rader Attending Unavailabl e Miedel, Ginna Primary Care Unavailable Allergies Allergy Classification Reported Allergen(s) Allergy Type Date of Onset Reaction(s) Facility (3 sources) oxyCODONE drug allergy 12-31-[address] [facility] Work Phone: (1 source) apixaban Drug Allergy 12-27-2024 Rash [facility] (1 source) oxyCODONE Drug Allergy 01-15-2025 itching [facility] (1 source) apixaban Drug Allergy 12-27-2024 [facility] Repository (1 source) oxyCODONE Drug Allergy 01-15-2025 [facility] Repository Medications Current Medications Medication Drug Class(es) Dates Sig (Normalized) Sig (Original) acetaminophen 325 mg / oxyCODONE hydrochloride 5 mg oral tablet (2 sources) Opioid Agonist Start: 12-28-2024 take 1 tablet by mouth every six hours as needed for pain Oxycodone-Acetam inophen (Percocet) 5-325 mg tablet Active 1 {tbl} PO EVERY 6 HOURS as needed for pain 12 3 0 December 28, 2024 Effusion of left knee Effusion, left knee ALPRAZolam 0.5 mg oral tablet (1 source) Benzodiazepine Start: 01-15-2025 take 1 tablet by mouth twice daily Alprazolam 0.5 mg tablet Active 0.5 mg PO TWICE A DAY January 15, 2025 12:00am apixaban 5 mg oral tablet (2 sources) Factor Xa Inhibitor Start: 01-22-2025 take 1 tablet by mouth twice daily Apixaban (Eliquis) 5 mg tablet Active 5 mg PO TWICE A DAY January 22, 2025 12:00am Start: 12-22-2024 End: 01-21-2025 take 2 tablets by mouth twice daily, then take 1 tablet by mouth twice daily apixaban (ELIQUIS DVT-PE TREAT 30D START) 5 mg (74 tabs) Take 2 tablets by mouth two times a day for 7 days, THEN 1 tablet two times a day for 23 days. 74 tablet 12/22/2024 01/21/2025 Active atorvastatin 10 mg oral tablet (4 sources) HMG-CoA Reductase Inhibitor Start: 12-19-2024 take 1 tablet by mouth at bedtime Atorvastatin 10 mg tablet Active 10 mg PO AT BEDTIME December 19, 2024 12:00am loratadine 10 mg oral tablet (1 source) Start: 01-15-2025 take 1 tablet by mouth once daily Loratadine (Claritin) 10 mg tablet Active 10 mg PO daily January 15, 2025 12:00am Multivitamin preparation (3 sources) Start: 12-19-2024 multivitamin A ctive .Route December 19, 2024 12:00am Start: 12-19-2024 multivitamin A ctive .ROUTE December 19, 2024 12:00am therapeutic multivitamin-min erals (THERA-M PLUS) 9 mg iron-400 mcg tablet (1 source) therapeutic mult ivitamin-minerals (THERA-M PLUS) 9 mg iron-400 mcg tablet Take 1 tablet by mouth once daily. Active ubidecarenone 100 mg oral ca psule (2 sources) Start: 01-15-2025 Coenzyme Q10 (Coq-10) 100 mg capsule Active 100 mg PO daily January 15, 2025 12:00am coenzyme Q10 (CO Q-10) 100 mg cap capsule Take 100 mg by mouth once daily. Active Completed/Discontinued Medications Medication Drug Class(es) Dates Sig (Normalized) Sig (Original) fenofibrate 145 mg oral tablet (3 sources) Peroxisome Proliferator Receptor alpha Agonist Start: 12-19-2024 End: 01-22-2025 take 1 tablet by mouth once daily Fenofibrate Nanocrystallized 145 mg tablet Discontinued 145 mg PO DAILY December 19, 2024 12:00am January 22, 2025 10:43am On Hold: stop taking d/t knee pain 200 actuat ipratropium bromide 0.017 mg/actuat metered dose inhaler (1 source) Anticholinergic Start: 01-15-2025 End: 01-22-2025 Ipratropium Dierks (Atrovent Hfa) 17 mcg/actuation HFA aerosol inhaler Discontinued 2 NMA INHALATION THREE TIMES A DAY January 15, 2025 12:00am January 22, 2025 10:43am metFORMIN hydrochloride 500 mg oral tablet (2 sources) Biguanide Start: 12-31-2016 take 1 tablet by mouth twice daily GLUCOPHAGE 500 MG TABS One tablet by mouth twice daily METFORMIN HCL [id number] Branden Bahena MD Drug Treatment Unknown - unknown (1 source) No information available. Problems Active Problems Problem Classification Problem Date Documented Da te Episodic/Chronic Cardiac dysrhythmias (1 source) Palpitations; Translations: [Palpitations] Onset: 12-27-2024 Episodic Disorders of lipid metabolism (2 sources) Hyperlipidemia; Translations: [Hyperlipidemia, unspecified] Onset: 08-30-2024 01-05-2025 Chronic Other aftercare (1 source) Long-term current use of anticoagulant; Translations: [correction (current) use of anticoagulants] 01-05-2025 Episodic Other non-traumatic joint disorders (2 sources) Effusion of joint of left knee; Translations: [Effusion, left knee] 12-28-2024 Episodic Other non-traumatic joint disorders (1 source) Effusion, left knee; Translations: [Effusion, left knee] Onset: 12-28-2024 Episodic Other non-traumatic joint disorders (1 source) Pain in left knee; Translations: [Pain in left knee] Onset: 02-14-2025 Episodic Other upper respiratory disease (2 sources) Seasonal allergy; Translations: [Other seasonal allergic rhinitis] Onset: 12-31-2016 12-31-2016 Chronic Phlebitis; thrombophlebitis and thromboembolism (4 sources) Acute deep venous thrombosis of popliteal vein of left leg; Translations: [Acute embolism and thrombosis of left popliteal vein] Onset: 12-22-2024 12-23-2024 Episodic Pulmonary heart disease (8 sources) Pulmonary embolism; Translations: [Other pulmonary embolism without acute cor pulmonale] Onset: 12-20-2024 12-23-2024 Episodic Unclassified (1 source) No current problems or disability 12-31-2016 Past or Other Problems Problem Classification Problem Date Documented Da te Episodic/Chronic Anal and rectal conditions (2 sources) Rectal prolapse; Translations: [Rectal prolapse] Onset: 12-31-2016 12-31-2016 Episodic Gastrointestinal hemorrhage (2 sources) Hematochezia; Translations: [Melena] Onset: 12-31-2016 01-01-2017 Episodic Hemorrhoids (2 sources) Other hemorrhoids; Translations: [Other hemorrhoids] Onset: 12-31-2016 12-31-2016 Episodic Other screening for suspected conditions (not mental disorders or infectious disease) (2 sources) Encounter for screening mammogram for malignant neoplasm of breast; Translations: [Encounter for screening for malignant neoplasm of respiratory organs] Onset: 09-06-2024 Episodic Respiratory failure; insufficiency; arrest (adult) (1 source) Hypoxemic respiratory failure; Translations: [Respiratory failure, unspecified with hypoxia] Onset: 12-20-2024 Resolved: 12-22-2024 12-22-2024 Episodic Results Test Name Value Interpretation Reference Range Facility Pulmonary Visit Reporton Pulmonary Visit Report [facility] [address] [place] [address] OFFICE VISIT Date of Service: 01/22/25 MR#: [id number] Acct: [id number] Name: SHANNAN DUARTE Rep #: [id number] : 1955 Provider: Dr. Baldomero Dickerson DO Age/Sex: 69/F [place] [facility] Status: Signed Assessment and Plan Assessment and Plan (1) Pulmonary emboli: Status: Acute Plan: The patient was diagnosed with bilateral pulmonary emboli with evidence of right heart strain through the emergency department on December 19, 2024. She was subsequently transferred to [facility] where she underwent thrombectomy. The patient was placed on systemic anticoagulation with Eliquis. It is suspected that her VTE was secondary to prolonged immobility in the setting of a recent trip to [place]. Accordingly, recommend completing 3 months of systemic anticoagulation with Eliquis. Will plan to obtain follow-up echocardiogram to ensure resolution of the patient's RV dysfunction. Orders: Orders Echo Complete 1 Month I26.99 - Other pulmonary embolism without acute cor pulmonale HPI HPI Comments Details: The patient is a 69-year-old female who presents to the clinic today in referral for the evaluation of pulmonary embolism. The patient was evaluated in the emergency department on December 19 with complaints of heart palpitations and exertional dyspnea. Her workup in the emergency department included a CTA chest, which demonstrated bilateral pulmonary embolism with evidence of right heart strain. The patient was subsequently transferred to [facility], where she underwent thrombectomy. She was subsequently placed on Eliquis and discharged home, without the need for supplemental oxygen. The patient does have a 19-itot-hins smoking history, having quit completely in December 2024. She was employed previously as a nurse, prior to her senior care. Regarding the etiology of her pulmonary embolism, the patient did report that she traveled a long distance in a car to [place] in October 2024, which may have ultimately led to the development of DVT and subsequent PE. She has never been diagnosed previously with any venous thromboembolic disease. She denies any hypercoagulable conditions. She currently denies any significant dyspnea, chest tightness, wheezing or cough. She reported that she is currently being managed by her PCP with routine yearly low-dose CT imaging of the chest. Surface echocardiogram completed at [facility] demonstrated an ejection fraction of 60% with mildly reduced RV systolic function and RVSP estimated to be 31 mmHg. Intake Vital Signs 12/27/24 21:24 01/22/25 07:36 Height 5 ft 8 in 5 ft 8 in Weight: 191 lb BMI 29.0 BP 108/74 Blood Pressure Location Lt brachial Position Sitting Respiration 18 Pulse 92 Pulse Source Monitor Temp 97.3 F L Temperature Source Temporal Artery Pulse Oximetry (%) 95 Oxygen Delivery Method room air Intake Visit Reasons: PE Adult Care Provider Required: No DME Vendor: N/a Accompanied by: Self Is patient in pain?: No Allergies oxycodone (From OxyContin) Allergy (Unknown, Verified 01/15/25 13:00) itching Medications ???Medication ???Instructions ???Recorded ???Confirmed ???Type atorvastatin 10 mg tablet 10 mg PO QHS 12/19/24 01/15/25 His tory multivitamin .Route 12/19/24 01/15/25 History oxycodone-acetaminophe n 5 mg-325 1 tab PO Q6H PRN pain 3 days #12 0 12/28/24 01/22/25 Rx mg tablet (Percocet) tabs alprazolam 0.5 mg tablet 0.5 mg PO BID 01/15/25 01/15/25 Hi story coenzyme Q10 100 mg capsule 100 mg PO QDAY 01/15/25 01/15/25 H istory (CoQ-10) loratadine 10 mg tablet (Claritin) 10 mg PO QDAY 01/15/25 01/15/25 History apixaban 5 mg tablet (Eliquis) 5 mg PO BID 01/22/25 01/22/25 Hist ory Have you fallen in the past year?: No PFSH Medical History (Updated 01/22/25 @ 11:[address] Baldomero Dickerson, DO) DVT (deep venous thrombosis) Hyperlipemia Hx of smoking Dental implant pain Surgical History (Updated 01/22/25 @ 10:41 by Sammie Mckeon LPN) History of thrombectomy History of dental surgery History of left cataract surgery History of right cataract surgery H/O: hysterectomy Hx of breast reduction, elective Family History (Updated 01/15/25 @ 12:56 by Sammie Mckeon LPN) Mother Hypertension Father Cancer Prostate Social History (Updated 01/15/25 @ 12:55 by Sammie Mckeon LPN) Smoking Status: Former smoker quit date: 11/20/23 Review of Systems Resp Respiratory: Yes as per HPI Exam Const Constitutional: Positive conversant, cooperative, in no acute respiratory distress, well developed, well nourished and good hygiene Head Head: Yes normocephalic and Yes atraumatic Eyes Eye: Positi (more content not included)... Normal [facility] Body Fluid Culton 01-02-2025 BFC NA NA No growth in 5 days. Normal [facility] Comment on above: Performed By: #### M 100.2900, M100.4001, M100.2000, L200.4175, L200.0400 #### [facility] [address] [place], [address] Culture, Anaerobic Any Sourc caryn 01-02-2025 CUAN NA NA No growth in 5 days. Normal [facility] Comment on above: Performed By: #### M 100.2900, M100.4001, M100.2000, L200.4175, L200.0400 #### [facility] [address] [place], [address] Crystals, Body Fluidon 01-01 PATH REV Reviewed Normal [facility] Comment on above: Result Comment: FEW NON-URATE CRYSTALS OBSERVED. NO MALIGNANT CELLS IDENTIFIED. Anahy Alcala MD 01/01/2025 AMENDED REPORT 01/01/25 0921 PATH REV previously reported as: Will follow Performed By: #### M 100.2900, M100.4001, M100.2000, L200.4175, L200.0400 #### [facility] [address] [place], [address] Anaerobic cultureOrdered By: Haider Orozco on 12-28-2024 Bacteria identified Anaer cx Nom (Unsp spec) No growth in 5 days. [facility] Automated synovial fluid gay kocytes count (number/volume)Ordered By: Haider Orozco on 12-28-2024 WBC Auto (Syn fld) [#/Vol] 0.0640 10^3/uL High 0.000-0.002 [facility] Automated synovial fluid mon onuclear cell count (number/volume)Ordered By: Haider Orozco on 12-28-2024 Mononuclear cells Auto (Syn fld) [#/Vol] 0.058 10^3/ul [facility] Automated synovial fluid [place] ymorphonuclear cell count (number/volume)Ordered By: Haider Orozco on 12-28-2024 Polymorphonuclear cells Auto (Syn fld) [#/Vol] 0.006 10^3/uL [facility] Automated synovial fluid [place] ymorphonuclear cells as percentage of leukocytesOrdered By: Haider Orozco on 12-28-2024 Polymorphonuclear cells/100 WBC Auto (Syn fld) 9.4 % [facility] Blood lymphocytes/100 leukoc ytesOrdered By: Haider Orozco on 12-28-2024 Lymphocytes/100 WBC (Bld) 28 % [facility] Body fluid crystal identific ation by light microscopyOrdered By: Haider Orozco on 12-28-2024 Crystals LM Nom (Body fld) NO CRYSTALS SEEN [facility] Comment on above: CRYSTAL RESULT IS PRELIMINARY. SEE PATH REVIEW FOR FINAL REPORT. Determination of appearance of synovial fluid (nominal result)Ordered By: Haider Orozco on 12-28-2024 Appearance (Syn fld) Clear CLEAR [facility] Emergency Department Summary on 12-28-2024 Emergency Department Summary [facility] Medical Records Department [address] [place] [address] Emergency Department Summary 12/28/24 MR#: [id number] Acct: [id number] Name: SHANNAN DUARTE Rep #: [id number] : 1955 69 From: Haider Orozco DO PCP: Dr. Ginna Armstrong MD Status:DEP ER Location: ED HPI History of Present Illness Chief Complaint: Lower Extremity Injury Informant: patient Narrative Narrative: Patient is a 69-year-old female with past medical history of hyperlipidemia. She states she was recently diagnosed with a left lower extremity DVT as well as pulmonary embolus and underwent a thrombectomy. She states she is currently on Eliquis. She reports that she has been having left knee/leg pain for weeks and was managing it with Tylenol and Motrin. She states that as she is now on Eliquis because of her PE and DVT she can no longer take the Motrin and is only doing Tylenol. She states she had a cortisone injection in the left knee but there has been no symptom improvement. She states has been no recent trauma but notes that she has been having increasing pain and swelling to the left knee. She states that this to the point where [id number] medications are not helping and secondary to this she comes in for evaluation. [facility] Medical History (Updated 12/28/24 @ 05:[address] Haider Orozco, DO) DVT (deep venous thrombosis) Hyperlipemia Hx of smoking Dental implant pain Home Medications ???Medication ???Instructions ???Recorded ???Last Taken ???Type atorvastatin 10 mg tablet 10 mg PO QHS 12/19/24 Unknown Hist ory fenofibrate nanocrystallized 145 145 mg PO DAILY 12/19/24 Unknown H istory mg tablet Held on 12/19/24. Instructions: stop taking d/t knee pain multivitamin .ROUTE 12/19/24 Unknown History oxycodone-acetaminophe n 5 mg-325 1 tab PO Q6H PRN pain 3 days #12 0 12/28/24 Unknown Rx mg tablet (Percocet) tabs Allergy/AdvReac Type Severity Reaction Status Date / Time apixaban (From [employer]) Allergy Mild Rash Verified 12/27/24 21:25 Family History no significant family his Surgical History H/O: hysterectomy Hx of breast reduction, elective Social History Smoking Status: Former smoker ROS ROS ED Constitutional Constitutional ED: Denies chills or fever(s) ENT ENT ED: Denies sore throat Cardiovascular Cardiovascular: Denies chest pain Respiratory/Chest Respiratory/Chest: Denies cough or dyspnea Gastrointestinal Gastrointestinal: Denies abdominal pain, diarrhea, nausea or vomiting Musculoskeletal Musculoskeletal: Reports other Details: Positive left knee pain and swelling Neurologic Neurologic: Denies headache(s) Hematologic/Lymphatic Hematologic/Lymphatic: Reports easy bleeding and easy bruising EXAM Physical Exam Const Vital Signs: 12/27/24 21:24 12/27/24 23:24 12/28/24 01:00 Temperature 98.7 F Temperature Source Oral Pulse Rate 99 73 75 Respiratory Rate 18 16 16 Blood Pressure 104/71 109/62 100/44 L Blood Pressure Mean 82 77 62 Pulse Ox 98 94 98 Oxygen Delivery Method Room Air Room Air Room Air 12/28/24 01:05 Temperature 98.0 F Temperature Source Pulse Rate 79 Respiratory Rate 16 Blood Pressure 100/44 L Blood Pressure Mean 62 Pulse Ox 98 Oxygen Delivery Method Positive well nourished and well developed General Appearance ED: well developed HEENT HEENT Narrative: Normocephalic atraumatic Eyes PERRL and EOMs intact bilaterally General Eye ED: Negative for scleral icterus Neck supple Resp normal respiratory effort and clear to auscultation bilaterally Cardio regular rate and regular rhythm Extremity Extremity Narrative: Left lower extremity is neurovascularly intact. Patellar tendon is intact and knee ligaments are stable. There is a moderate effusion noted. There is faint warmth of the left knee compared to right but no asymmetric erythema. No lymphangitic streaking. No crepitance palpated Compartments are soft and compressible going against compartment syndrome No obvious abscess or cellulitis noted. Active range of motion is decreased secondary to pain but patient can still lift the left leg off the bed and straight leg fashion and can flex the left knee to approximately 90 degrees Neuro oriented x3, CN's II-XII intact bilaterally and no sensory deficits noted Sensorium / Orientation: alert Psych mental status grossly normal Skin Skin Narrative: Mild soft tissue swelling/joint effusion with faint asymmetric warmth of the left knee compared to the right as documented above MDM MDM MDM Narrative Medical decision making narrative: Patient arrived to the ER with stable vitals and reported (more content not included)... Normal [facility] Gram Stainon 12-28-2024 GS NA NA Gram Stain No organisms seen 2+ Red Blood Cells 1+ White Blood Cells Normal [facility] Comment on above: Performed By: #### M 100.2900, M100.4001, M100.2000, L200.4175, L200.0400 #### [facility] [address] [place] [address]. [place], [address] Gram stainOrdered By: Haider Orozco on 12-28-2024 Microscopic observation Gram stain Nom (Unsp spec) [facility] Pathologist review of result s (narrative result)Ordered By: Haider Orozco on 12-28-2024 Pathologist review Edilberto (Unsp spec) [Interp] May follow [facility] Qualitative synovial fluid v iscosityOrdered By: Haider Orozco on 12-28-2024 Viscosity Ql (Syn fld) Sl. Viscous HIGH W [facility] Review by pathologistOrdered By: Haider Orozco on 12-28-2024 Pathologist review Edilberto (Unsp spec) [Interp] Reviewed [facility] Comment on above: Previous reported re sult: Will follow Edited by: KAMALJIT on 01/01/25:0921FEW NON-URATE CRYSTALS OBSERVED.NO MALIGNANT CELLS IDENTIFIED.Anahy Alcala MD 01/01/2025 AMENDED REPORT 01/01/25 0921 PATH REV previously reported as: Will follow Specimen source identificati on of body fluidOrdered By: Haider Orozco on 12-28-2024 Specimen source Nom (Body fld) SYNOVIAL [facility] Specimen source Nom (Body fld) L KNEE [facility] Synovial Fluid RBC, WBC AND Diffon 12-28-2024 Lymphocytes (Bld) [#/Vol] 28 10*3/uL Normal [facility] Comment on above: Performed By: #### M 100.2900, M100.4001, M100.2000, L200.4175, L200.0400 #### [facility] [address] [place], [address] Monocytes (Bld) [#/Vol] 61 10*3/uL Normal [facility] Comment on above: Performed By: #### M 100.2900, M100.4001, M100.2000, L200.4175, L200.0400 #### [facility] [address] [place], [address] NEUTROPHIL 11 Normal 0-25 [facility] Comment on above: Performed By: #### M 100.2900, M100.4001, M100.2000, L200.4175, L200.0400 #### [facility] [address] [place], [address] SYNOVIAL TV 20.0 ml High 0.1-3.5 [facility] Comment on above: Performed By: #### M 100.2900, M100.4001, M100.2000, L200.4175, L200.0400 #### [facility] [address] [place], [address] VISCOSITY/SYFL Sl. Viscous Normal HIGH [facility] Comment on above: Performed By: #### M 100.2900, M100.4001, M100.2000, L200.4175, L200.0400 #### [facility] [address] [place], [place], [id number] Synovial fluid color determi nation (nominal result)Ordered By: Haider Orozco on 12-28-2024 Color (Syn fld) Yellow Pale Yellow [facility] Synovial fluid erythrocytes count (number/volume)Ordered By: Haider Orozco on 12-28-2024 RBC (Syn fld) [#/Vol] 0.003 10^6/uL High 0-0 [facility] Synovial fluid monocyte perc entageOrdered By: Haider Orozco on 12-28-2024 Monocytes/100 WBC (Syn fld) 61 % [facility] Synovial fluid mononuclear c ells/100 leukocytesOrdered By: Haider Orozco on 12-28-2024 Mononuclear cells/100 WBC (Syn fld) 90.6 % [facility] Synovial fluid neutrophil pe rcentageOrdered By: Haider Orozco on 12-28-2024 Neutrophils/100 WBC (Syn fld) 11 % 0-25 [facility] Synovial fluid sample volume measurementOrdered By: Haider Orozco on 12-28-2024 Specimen volume (Syn fld) 20.0 ml High 0.1-3.5 [facility] Synovial fluid total cell co untOrdered By: Haider Orozco on 12-28-2024 Cells Counted Total (Syn fld) [#] 0.0650 10^3/uL High 0.000-0.000 [facility] Comment on above: This is the Total Nu mber of Nucleated Cell Types in the Body Fluid. Absolute lymphocyte countOrd ered By: Haider Orozco on 12-27-2024 Lymphocytes Auto (Unsp spec) [#/Vol] 0.47 10*3/uL Low 0.83-4.51 [facility] Absolute neutrophil countOrd ered By: Haider Orozco on 12-27-2024 Neutrophils (Bld) [#/Vol] 6.5 10*3/uL 2.0-7.7 [facility] Activated partial thrombopla stin time (aPTT) in platelet poor plasma by coagulation aOrdered By: Haider Orozco on 12-27-2024 aPTT Coag (PPP) [Time] 35.1 s 24.1-36.[address] [facility] Anion gap in Serum or Plasma Ordered By: Haider Orozco on 12-27-2024 Anion gap [Moles/Vol] 13 mmol/L 5- [facility] Automated lymphocyte count a s percentage of total leukocytesOrdered By: Haider Orozco on 12-27-2024 Lymphocytes/100 WBC Auto (Unsp spec) 6.4 % Low 19- [facility] BUN/creatinine ratioOrdered By: Haider Orozco on 12-27-2024 Urea nitrogen/Creatinine [Mass ratio] 14.3 mg/mg - [facility] Basic Metabolic Profile (BMP )on 12-27-2024 BUN/CRE 14.3 RATIO Normal - [facility] Comment on above: Performed By: #### L 501.6710, L101.9900, L300.3900, L100.0100, L500.2500, L300.4310 ####[facility] [address] [place], [address] Calcium [Mass/Vol] 9.2 mg/dL Normal 7.6-11.0 [facility] Comment on above: Performed By: #### L 501.6710, L101.9900, L300.3900, L100.0100, L500.2500, L300.4310 ####[facility] [address] [place], [address] Chloride [Moles/Vol] 106 mmol/L Normal 98-108 [facility] Comment on above: Performed By: #### L 501.6710, L101.9900, L300.3900, L100.0100, L500.2500, L300.4310 ####[facility] [address] [place], [address] CO2 [Moles/Vol] 20.9 mmol/L Low 21.0-32.0 [facility] Comment on above: Performed By: #### L 501.6710, L101.9900, L300.3900, L100.0100, L500.2500, L300.4310 ####[facility] [address] [place], [address] Creatinine [Mass/Vol] 0.76 mg/dL Normal 0.70-1.20 [facility] Comment on above: Performed By: #### L 501.6710, L101.9900, L300.3900, L100.0100, L500.2500, L300.4310 ####[facility] [address] [place], [address] ECRCL 80.86 ml/min Normal 50-250 [facility] Comment on above: Performed By: #### L 501.6710, L101.9900, L300.3900, L100.0100, L500.2500, L300.4310 ####[facility] [address] [place], [address] GAP 13 Normal 5-15 [facility] Comment on above: Performed By: #### L 501.6710, L101.9900, L300.3900, L100.0100, L500.2500, L300.4310 ####[facility] [address] [place], [address] GFR/1.73 sq M.predicted among non-blacks MDRD (S/P/Bld) [Vol rate/Area] 87 mL/min/{1.73_m2} Normal >60 [facility] Comment on above: Result Comment: mL/m in/1.73m2 CKD-EPI Creatinine Equation (2020) Performed By: #### L 501.6710, L101.9900, L300.3900, L100.0100, L500.2500, L300.4310 ####[facility] [address] [place], [address] Glucose [Mass/Vol] 174 mg/dL High 70-99 [facility] Comment on above: Performed By: #### L 501.6710, L101.9900, L300.3900, L100.0100, L500.2500, L300.4310 ####[facility] [address] [place], [address] Potassium [Moles/Vol] 4.2 mmol/L Normal 3.3-5.1 [facility] Comment on above: Result Comment: Hemo lysis present, Results??could be affected. ?? Performed By: #### L 501.6710, L101.9900, L300.3900, L100.0100, L500.2500, L300.4310 ####[facility] [address] [place], [address] Sodium [Moles/Vol] 140 mmol/L Normal 133-145 [facility] Comment on above: Performed By: #### L 501.6710, L101.9900, L300.3900, L100.0100, L500.2500, L300.4310 ####[facility] [address] [place], [address] Urea nitrogen [Mass/Vol] 11 mg/dL Normal 4-19 [facility] Comment on above: Performed By: #### L 501.6710, L101.9900, L300.3900, L100.0100, L500.2500, L300.4310 ####[facility] [address] [place], [address] Basophil percentageOrdered B y: Haider Orozco on 12-27-2024 Basophils/100 WBC (Bld) 0.1 % 0-1 [facility] CBC W/Diff, Automatedon 07-0 Absolute Lymph 0.47 X10 3/uL Low 0.83-4.51 [facility] Comment on above: Performed By: #### L 501.6710, L101.9900, L300.3900, L100.0100, L500.2500, L300.4310 ####[facility] [address] [place], [address] Absolute Neut 6.5 X10 3/uL Normal 2.0-7.7 [facility] Comment on above: Performed By: #### L 501.6710, L101.9900, L300.3900, L100.0100, L500.2500, L300.4310 ####[facility] [address] [place], [address] Basophils/100 WBC (Bld) 0.1 % Normal 0-1 [facility] Comment on above: Performed By: #### L 501.6710, L101.9900, L300.3900, L100.0100, L500.2500, L300.4310 ####[facility] [address] [place], [address] Eosinophils/100 WBC (Bld) 2.9 % Normal 0-5 [facility] Comment on above: Performed By: #### L 501.6710, L101.9900, L300.3900, L100.0100, L500.2500, L300.4310 ####[facility] [address] [place], [address] Erythrocyte distribution width (RBC) [Ratio] 13.3 % Normal 11.6-14.6 [facility] Comment on above: Performed By: #### L 501.6710, L101.9900, L300.3900, L100.0100, L500.2500, L300.4310 ####[facility] [address] [place], [address] Hematocrit (Bld) [Volume fraction] 31.5 % Low 37-47 [facility] Comment on above: Performed By: #### L 501.6710, L101.9900, L300.3900, L100.0100, L500.2500, L300.4310 ####[facility] [address] [place], [address] Hemoglobin (Bld) [Mass/Vol] 10.4 g/dL Low 12.0-15.0 [facility] Comment on above: Performed By: #### L 501.6710, L101.9900, L300.3900, L100.0100, L500.2500, L300.4310 ####[facility] [address] [place], [address] IG% 0.500 Normal 0.0-0.9 [facility] Comment on above: Result Comment: IG% - Immature Granulocytes (promyelocytes, myelocytes and metamyelocytes) > 1% indicates that a LEFT SHIFT is Present. Performed By: #### L 501.6710, L101.9900, L300.3900, L100.0100, L500.2500, L300.4310 ####[facility] [address] [place], [address] Lymphocytes/100 WBC (Bld) 6.4 % Low 19-41 [facility] Comment on above: Performed By: #### L 501.6710, L101.9900, L300.3900, L100.0100, L500.2500, L300.4310 ####[facility] [address] [place], [address] MCH (RBC) [Entitic mass] 31.1 pg Normal 27.0-32.0 [facility] Comment on above: Performed By: #### L 501.6710, L101.9900, L300.3900, L100.0100, L500.2500, L300.4310 ####[facility] [address] [place], [address] MCHC (RBC) [Mass/Vol] 33.0 g/dL Normal 32-36 [facility] Comment on above: Performed By: #### L 501.6710, L101.9900, L300.3900, L100.0100, L500.2500, L300.4310 ####[facility] [address] [place], [address] MCV (RBC) [Entitic vol] 94.3 fL Normal 81-99 [facility] Comment on above: Performed By: #### L 501.6710, L101.9900, L300.3900, L100.0100, L500.2500, L300.4310 ####[facility] [address] [place], [address] Monocytes/100 WBC (Bld) 1.4 % Normal 0-10 [facility] Comment on above: Performed By: #### L 501.6710, L101.9900, L300.3900, L100.0100, L500.2500, L300.4310 ####[facility] [address] [place], [address] Neutrophils/100 WBC (Bld) 88.7 % High 47-70 [facility] Comment on above: Performed By: #### L 501.6710, L101.9900, L300.3900, L100.0100, L500.2500, L300.4310 ####[facility] [address] [place], [address] Nucleated RBC (Bld) [#/Vol] 0 10*3/uL Normal 0-5 [facility] Comment on above: Performed By: #### L 501.6710, L101.9900, L300.3900, L100.0100, L500.2500, L300.4310 ####[facility] [address] [place], [address] Platelet mean volume (Bld) [Entitic vol] 10.4 fL Normal 6.2-12.0 [facility] Comment on above: Performed By: #### L 501.6710, L101.9900, L300.3900, L100.0100, L500.2500, L300.4310 ####[facility] [address] [place], [address] Platelets (Bld) [#/Vol] 216 10*3/uL Normal 150-450 [facility] Comment on above: Performed By: #### L 501.6710, L101.9900, L300.3900, L100.0100, L500.2500, L300.4310 ####[facility] [address] [place], [address] RBC (Bld) [#/Vol] 3.34 10*6/uL Low 4.2-5.4 [facility] Comment on above: Performed By: #### L 501.6710, L101.9900, L300.3900, L100.0100, L500.2500, L300.4310 ####[facility] [address] [place], [address] RDW SD 45.5 fl High 35.1-43.9 [facility] Comment on above: Performed By: #### L 501.6710, L101.9900, L300.3900, L100.0100, L500.2500, L300.4310 ####[facility] [address] [place], [address] WBC (Bld) [#/Vol] 7.3 10*3/uL Normal 4.4-11.0 [facility] Comment on above: Performed By: #### L 501.6710, L101.9900, L300.3900, L100.0100, L500.2500, L300.4310 ####[facility] [address] [place], [address] CRPon 12-27-2024 C-REACTIVE PROT 16.00 mg/L High 0.0-3.0 [facility] Comment on above: Performed By: #### L 501.6710, L101.9900, L300.3900, L100.0100, L500.2500, L300.4310 #### [facility] [address] [place], [place], [id number] Carbon dioxide, total [Moles /volume] in Central venous bloodOrdered By: Haider Orozco on 12-27-2024 CO2 [Moles/Vol] 20.9 mmol/L Low 21.0-32.0 [facility] Chloride assayOrdered By: Fatimah Orozco on 12-27-2024 Chloride [Moles/Vol] 106 mmol/L 98-108 [facility] Eosinophil percentageOrdered By: Hiader Orozco on 12-27-2024 Eosinophils/100 WBC (Bld) 2.9 % 0-5 [facility] Erythrocyte Sed Rateon 12-27 SED RATE 24 mm/hr Normal 0-30 [facility] Comment on above: Performed By: #### L 501.6710, L101.9900, L300.3900, L100.0100, L500.2500, L300.4310 #### [facility] [address] [place], [place], [id number] ([address]) Erythrocyte distribution wid th ratioOrdered By: Haider Orozco on 12-27-2024 Erythrocyte distribution width (RBC) [Ratio] 13.3 % 11.6-14.6 [facility] Erythrocyte distribution wid th standard deviationOrdered By: Haider Orozco on 12-27-2024 Erythrocyte distribution width (RBC) [Ratio] 45.5 fl High 35.1-43.9 [facility] Erythrocyte sedimentation ra teOrdered By: Haider Orozco on 12-27-2024 ESR (Bld) [Velocity] 24 mm/h 0-30 [facility] Glomerular filtration rate ( GFR) estimation/1.73 sq m using serum, plasma, or whole bOrdered By: Haider Orozco on 12-27-2024 GFR/1.73 sq M.predicted among non-blacks MDRD (S/P/Bld) [Vol rate/Area] 87 mL/min/{1.73_m2} >60 [facility] Comment on above: mL/min/1.73m2 CKD-EP I Creatinine Equation (2020) Hematocrit Auto (Bld) [Volum e fraction]Ordered By: Haider Orozco on 12-27-2024 Hematocrit (Bld) [Volume fraction] 31.5 % Low 37-47 [facility] Hemoglobin measurementOrdere d By: Haider Orozco on 12-27-2024 Hemoglobin (Bld) [Mass/Vol] 10.4 g/dL Low 12.0-15.0 [facility] Immature granulocytes/100 WB C Auto (Bld)Ordered By: Haider Orozco on 12-27-2024 Immature granulocytes/100 WBC (Bld) 0.500 % 0.0-0.9 [facility] Comment on above: IG% - Immature Granu locytes (promyelocytes, myelocytes and metamyelocytes) > 1% indicates that a LEFT SHIFT is Present. International normalized rat io (INR) calculationOrdered By: Haider Orozco on 12-27-2024 INR Coag (Bld) [Relative time] 1.5 {INR} [facility] Knee 3 Viewson 12-27-2024 Knee 3 Views [facility] [address] [place], [place] [address] Knee 3 Views MR#: [id number] Acct: [id number] Name: SHANNAN DUARTE Rep #: [id number] : 1955 F 69 From: Guicho Albrecht MD PCP: Dr. Ginna Armstrong MD Status: REG ER Study: Knee 3 Views Date of Exam: 12/27/24 Exam# [id number] Ordering Dr: Haider Orozco DO PROCEDURE: KNEE 3 VIEWS 12/27/2024 REASON FOR EXAM: PAIN TECHNIQUE: KNEE 3 VIEWS COMPARISON: 11/24/2024 FINDINGS: No acute fracture or dislocation. Alignment is anatomic. Minimal medial tibiofemoral joint space narrowing. Small nonspecific suprapatellar joint effusion. No aggressive osseous lesion. No appreciable soft tissue swelling or radiopaque foreign body. RAD/Knee 3 Views IMPRESSION: No acute fracture, dislocation, or substantial degenerative arthrosis. Nonspecific small suprapatellar joint effusion, similar to prior exam. Reading Location: [facility] CC: Dr. Ginna Armstrong MD; Haider Orozco DO Parcel [employer]rier: Signed Normal [facility] Lactic Acidon 12-27-2024 Lactate [Moles/Vol] 2.1 mmol/L Invalid Interpretation Code 0.0-2.0 [facility] Comment on above: Order Comment: Y Result Comment: Crit ical Result(s) Called at 2335: by: KELSEA TO ESMAGUAS BUENAS??Results read back by same. Performed By: #### L 503.6005 ####[facility] [address] [place], [place], [address] Lactic acid measurementOrder ed By: Haider Orozco on 12-27-2024 Lactate [Moles/Vol] 2.1 mmol/L High 0.0-2.0 [facility] Comment on above: Critical Result(s) C alled at 2335: by: KELSEA TO ESMART Results read back by same. MCV (mean corpuscular volume ) determinationOrdered By: Haider Orozco on 12-27-2024 MCV (RBC) [Entitic vol] 94.3 fL 81-99 [facility] Mean corpuscular hemoglobin (MCH) determinationOrdered By: Haider Orozco on 12-27-2024 MCH (RBC) [Entitic mass] 31.1 pg 27.0-32.0 [facility] Mean corpuscular hemoglobin concentration (MCHC) determinationOrdered By: Haider Orozco on 12-27-2024 MCHC (RBC) [Mass/Vol] 33.0 g/dL 32-36 [facility] Mean platelet volume determi nationOrdered By: Haider Orozco on 12-27-2024 Platelet mean volume (Bld) [Entitic vol] 10.4 fL 6.2-12.0 [facility] Monocyte percentageOrdered B y: Haider Orozco on 12-27-2024 Monocytes/100 WBC (Bld) 1.4 % 0-10 [facility] Neutrophil percentageOrdered By: Haider Orozco on 12-27-2024 Neutrophils/100 WBC (Bld) 88.7 % High 47-70 [facility] Nucleated red blood cell per centageOrdered By: Haider Orozco on 12-27-2024 Nucleated RBC/100 WBC (Bld) [Ratio] 0 % 0-5 [facility] Partial Thromboplast Timeon 12-27-2024 aPTT Coag (Bld) [Time] 35.1 s Normal 24.1-36.[address] [facility] Comment on above: Performed By: #### L 501.6710, L101.9900, L300.3900, L100.0100, L500.2500, L300.4310 ####[facility] [address] [place], [place], [id number] Platelet countOrdered By: Fatimah Orozco on 12-27-2024 Platelets (Bld) [#/Vol] 216 10*3/uL 150-450 [facility] Potassium measurement (mass/ volume)Ordered By: Haider Orozco on 12-27-2024 Potassium (Unsp spec) [Mass/Vol] 4.2 mmol/L 3.3-5.1 [facility] Comment on above: Hemolysis present, R esults could be affected. Prothrombin Time w/INRon INR Coag (PPP) [Relative time] 1.5 {INR} Normal [facility] Comment on above: Performed By: #### L 501.6710, L101.9900, L300.3900, L100.0100, L500.2500, L300.4310 ####[facility] [address] [place], [address] PT Coag (PPP) [Time] 18.4 s High 11.7-14.9 [facility] Comment on above: Performed By: #### L 501.6710, L101.9900, L300.3900, L100.0100, L500.2500, L300.4310 ####[facility] [address] [place], [address] Prothrombin timeOrdered By: Haider Orozco on 12-27-2024 PT Coag (PPP) [Time] 18.4 s High 11.7-14.9 [facility] RBC Auto (Bld) [#/Vol]Ordere d By: Haider Orozco on 12-27-2024 RBC (Bld) [#/Vol] 3.34 10*6/uL Low 4.2-5.4 [facility] Serum creatinine measurement (mass/volume)Ordered By: Haider Orozco on 12-27-2024 Creatinine [Mass/Vol] 0.76 mg/dL 0.70-1.20 [facility] Serum glucose measurement (m ass/volume)Ordered By: Haider Orozco on 12-27-2024 Glucose [Mass/Vol] 174 mg/dL High 70-99 [facility] Serum or plasma C reactive p rotein measurement (mass/volume)Ordered By: Haider Orozco on 12-27-2024 CRP [Mass/Vol] 16.00 mg/L High 0.0-3.0 [facility] Serum or plasma calcium ayana urement (mass/volume)Ordered By: Haider Orozco on 12-27-2024 Calcium [Mass/Vol] 9.2 mg/dL 7.6-11.0 [facility] Serum or plasma urea nitroge n measurement (mass/volume)Ordered By: Haider Orozco on 12-27-2024 Urea nitrogen [Mass/Vol] 11 mg/dL 4-19 [facility] Sodium levelOrdered By: Colin Orozco on 12-27-2024 Sodium [Moles/Vol] 140 mmol/L 133-145 [facility] White blood cell (WBC) count Ordered By: Haider Orozco on 12-27-2024 WBC (Bld) [#/Vol] 7.3 10*3/uL 4.4-11.0 [facility] CNPNon 12-23-2024 CNPN Telephone (AKPRAD) SHANNAN DUARTE ([id number]) 1955 F Date Time Provider Department 12/23/24 FACUNDO SHEPARD During your visit today, we recorded the following information about you: Facundo Shepard PA-C 12/23/2024 7:33 AM Signed Please schedule this patient for a hospital follow up appointment in 3 months with JIM prior. Prefers Boy. AbbottJoanne 12/23/2024 10:12 AM Signed PSS contacted the patient to schedule echo and 3 month follow up with LEON dorman. Patient states she is wanting to discuss her provider options for pulmonary with her PCP at her upcoming visit next week. Allergies As of Date: 12/23/2024 (No Known Allergies) Date Reviewed: 12/22/2024 Reviewed by: Zofia Yi MD - Fully Assessed Reason for Visit: Hospital Follow Up [177] Primary Visit Diagnosis:Pulmonary embolism, bilateral (HCC) [I26.99] Other Visit Diagnosis:Acute deep vein thrombosis (DVT) of popliteal vein of left lower extremity (HCC) [I82.432] Order(s):JIM [114814] Order #: [id number]: 1 FUTURE Prescriptions as of 12/24/2024 - apixaban (ELIQUIS DVT-PE TREAT 30D START) 5 mg (74 tabs) Take 2 tablets by mouth two times a day for 7 days, THEN 1 tablet two times a day for 23 days. - atorvastatin (LIPITOR) 10 mg tablet Take 10 mg by mouth daily at bedtime. - therapeutic multivitamin-minerals (THERA-M PLUS) 9 mg iron-400 mcg tablet Take 1 tablet by mouth once daily. - coenzyme Q10 (CO Q-10) 100 mg cap capsule Take 100 mg by mouth once daily. Problem List As Of Date 12/23/2024 Noted Resolved Pulmonary embolism, bilateral (HCC) [I26.99] 12/20/2024 Respiratory failure with hypoxia (HCC) [J96.91] 12/20/2024 12/22/2024 Acute deep vein thrombosis (DVT) of popliteal v*12/22/2024 Encounter Status:Closed by FACUNDO SHEPARD on 12/24/24 Normal [facility] Basic metabolic 2000 panelon 12-22-2024 Anion gap [Moles/Vol] 10 mmol/L Normal 8-15 [facility] Comment on above: Order Comment: Speci men Type: BLOOD SPECIMEN Ordering Facility: [facility] Address: [address] [place] [address] Performed By: #### 1 9123-9, 24890-9 #### [facility] CLIA [id number] [address] [place] [address] [place] Calcium [Mass/Vol] 4.8 mg/dL Low 8.5-10.2 [facility] Comment on above: Order Comment: Speci men Type: BLOOD SPECIMEN Ordering Facility: [facility] Address: [address] [place] [address] Performed By: #### 1 9123-9, 25752-8 #### [facility] CLIA [id number] [address] [place] [address] [place] Chloride [Moles/Vol] 121 mmol/L High 98-107 [facility] Comment on above: Order Comment: Speci men Type: BLOOD SPECIMEN Ordering Facility: [facility] Address: [address] [place] [address] Performed By: #### 1 9123-9, 13625-2 #### [facility] CLIA [id number] [address] [place] [address] [place] CO2 [Moles/Vol] 14 mmol/L Low 22-30 [facility] Comment on above: Order Comment: Speci men Type: BLOOD SPECIMEN Ordering Facility: [facility] Address: [address] [place] [address] Performed By: #### 1 9123-9, 68516-1 #### [facility] CLIA [id number] [address] [place] [address] [place] Creatinine [Mass/Vol] 0.38 mg/dL Low 0.58-0.96 [facility] Comment on above: Order Comment: Jake roper Type: BLOOD SPECIMEN Ordering Facility: [facility] Address: [address] [place] [address] Performed By: #### 1 9123-9, 52726-7 #### [facility] CLIA [id number] [address] [place] [address] [place] Creatinine and Glomerular filtration rate.predicted panel (S/P/Bld) 110 mL/min/1.73m??? Normal >=60 [facility] Comment on above: Order Comment: Jake roper Type: BLOOD SPECIMEN Ordering Facility: [facility] Address: [address] [place] [address] Result Comment: Ana Maria mated Glomerular Filtration Rate (eGFR) is calculated using the 2020 CKD-EPI creatinine equation. This equation utilizes serum creatinine, sex, and age as parameters. The creatinine assay has traceable calibration to isotope dilution-mass spectrometry. Refer to KDIGO guidelines for clinical interpretation. In patients with unstable renal function, e.g. those with acute kidney injury, the eGFR may not accurately reflect actual GFR. Performed By: #### 1 9123-9, 08740-2 #### [facility] CLIA [id number] [address] [place] [address] [place] Glucose [Mass/Vol] 67 mg/dL Low 74-99 [facility] Comment on above: Order Comment: Jake roper Type: BLOOD SPECIMEN Ordering Facility: [facility] Address: [address] [place] [address] Result Comment: The [place] [employer] (ADA) provides guidance for cutoff values for fasting glucose and random glucose. The ADA defines fasting as no caloric intake for at least 8 hours. Fasting plasma glucose results between 100 to 125 mg/dL indicate increased risk for diabetes (prediabetes). Fasting plasma glucose results greater than or equal to 126 mg/dL meet the criteria for diagnosis of diabetes. In the absence of unequivocal hyperglycemia, results should be confirmed by repeat testing. In a patient with classic symptoms of hyperglycemia or hyperglycemic crisis, random plasma glucose results greater than or equal to 200 mg/dL meet the criteria for diagnosis of diabetes. Reference: Standards of Medical Care in Diabetes 2016, [place] [employer]. Diabetes Care. 2016.39(Suppl 1). Performed By: #### 1 9123-9, 84217-9 #### [facility] CLIA [id number] [address] [place] OF [facility] Potassium [Moles/Vol] 2.5 mmol/L Low 3.7-5.1 [facility] Comment on above: Order Comment: Speci men Type: BLOOD SPECIMEN Ordering Facility: [facility] Address: [facility] [place] [address] Performed By: #### 1 9123-9, 47738-1 #### [facility] CLIA [id number] [address] STATES OF [facility] Sodium [Moles/Vol] 145 mmol/L High 136-144 [facility] Comment on above: Order Comment: Speci men Type: BLOOD SPECIMEN Ordering Facility: [facility] Address: [address] [place] [address] Performed By: #### 1 9123-9, 36784-4 #### [facility] CLIA [id number] [address] STATES [facility] Urea nitrogen [Mass/Vol] 6 mg/dL Low 7-21 [facility] Comment on above: Order Comment: Speci men Type: BLOOD SPECIMEN Ordering Facility: [facility] Address: [address] [place] [address] Performed By: #### 1 9123-9, 88509-2 #### [facility] CLIA [id number] [address] CBC panel Auto (Bld)on 12-22 Erythrocyte distribution width (RBC) [Ratio] 12.4 % Normal 11.5-15.0 [facility] Comment on above: Order Comment: Speci men Type: BLOOD SPECIMEN Ordering Facility: [facility] Address: [facility] [place] [address] Performed By: #### 5 8410-2 #### [facility] CLIA [id number] [address] Hematocrit (Bld) [Volume fraction] 27.0 % Low 36.0-46.0 [facility] Comment on above: Order Comment: Speci men Type: BLOOD SPECIMEN Ordering Facility: [facility] Address: [facility] [place] [address] Performed By: #### 5 8410-2 #### [facility] CLIA [id number] [address] OF [facility] Hemoglobin (Bld) [Mass/Vol] 9.0 g/dL Low 11.5-15.5 [facility] Comment on above: Order Comment: Speci men Type: BLOOD SPECIMEN Ordering Facility: [facility] Address: [address] [place] [address] Performed By: #### 5 8410-2 #### [facility] CLIA [id number] [address] STATES OF [facility] MCH (RBC) [Entitic mass] 31.1 pg Normal 26.0-34.0 [facility] Comment on above: Order Comment: Speci men Type: BLOOD SPECIMEN Ordering Facility: [facility] Address: [address] [place] [address] Performed By: #### 5 8410-2 #### [facility] CLIA [id number] [address] OF [facility] MCHC (RBC) [Mass/Vol] 33.3 g/dL Normal 30.5-36.0 [facility] Comment on above: Order Comment: Speci men Type: BLOOD SPECIMEN Ordering Facility: [facility] Address: [address] [place] [address] Performed By: #### 5 8410-2 #### [facility] CLIA [id number] [address] MCV (RBC) [Entitic vol] 93.4 fL Normal 80.0-100.0 [facility] Comment on above: Order Comment: Speci men Type: BLOOD SPECIMEN Ordering Facility: [facility] Address: [address] [place] [address] Performed By: #### 5 8410-2 #### [facility] CLIA [id number] [address] STATES OF [place] Nucleated RBC (Bld) [#/Vol] 10*3/uL Normal <0.01 [facility] Comment on above: Order Comment: Speci men Type: BLOOD SPECIMEN Ordering Facility: [facility] Address: [address] [place] [address] Performed By: #### 5 8410-2 #### [facility] CLIA [id number] [address] OF [place] Platelet mean volume (Bld) [Entitic vol] 10.3 fL Normal 9.0-12.7 [facility] Comment on above: Order Comment: Speci men Type: BLOOD SPECIMEN Ordering Facility: [facility] Address: [address] [place] [address] Performed By: #### 5 8410-2 #### [facility] CLIA [id number] [address] [place] Platelets (Bld) [#/Vol] 143 10*3/uL Low 150-400 [facility] Comment on above: Order Comment: Speci men Type: BLOOD SPECIMEN Ordering Facility: [facility] Address: [address] [place] [address] Performed By: #### 5 8410-2 #### [facility] CLIA [id number] [address] RBC (Bld) [#/Vol] 2.89 10*6/uL Low 3.90-5.20 [facility] Comment on above: Order Comment: Speci men Type: BLOOD SPECIMEN Ordering Facility: [facility] Address: [address] [place] [address] Performed By: #### 5 8410-2 #### [facility] CLIA [id number] [address] OF [place] WBC (Bld) [#/Vol] 5.42 10*3/uL Normal 3.70-11.00 [facility] Comment on above: Order Comment: Speci men Type: BLOOD SPECIMEN Ordering Facility: [facility] Address: [address] [place] [address] Performed By: #### 5 8410-2 #### [facility] CLIA [id number] [address] Erythrocyte distribution width (RBC) [Ratio] 12.3 % Normal 11.5-15.0 [facility] Comment on above: Order Comment: Speci men Type: BLOOD SPECIMEN Ordering Facility: [facility] Address: [address] [place] [address] Performed By: #### 5 8410-2 #### [facility] CLIA [id number] [address] Hematocrit (Bld) [Volume fraction] 29.0 % Low 36.0-46.0 [facility] Comment on above: Order Comment: Speci men Type: BLOOD SPECIMEN Ordering Facility: [facility] Address: [address] [place] [address] Performed By: #### 5 8410-2 #### [facility] CLIA [id number] [address] STATES OF [facility] Hemoglobin (Bld) [Mass/Vol] 9.2 g/dL Low 11.5-15.5 [facility] Comment on above: Order Comment: Speci men Type: BLOOD SPECIMEN Ordering Facility: [facility] Address: [address] [place] [address] Performed By: #### 5 8410-2 #### [facility] CLIA [id number] [address] MCH (RBC) [Entitic mass] 31.0 pg Normal 26.0-34.0 [facility] Comment on above: Order Comment: Speci men Type: BLOOD SPECIMEN Ordering Facility: [facility] Address: [address] [place] [address] Performed By: #### 5 8410-2 #### [facility] CLIA [id number] [address] MCHC (RBC) [Mass/Vol] 31.7 g/dL Normal 30.5-36.0 [facility] Comment on above: Order Comment: Speci men Type: BLOOD SPECIMEN Ordering Facility: [facility] Address: [address] [place] [address] Performed By: #### 5 8410-2 #### [facility] CLIA [id number] [address] OF [place] MCV (RBC) [Entitic vol] 97.6 fL Normal 80.0-100.0 [facility] Comment on above: Order Comment: Speci men Type: BLOOD SPECIMEN Ordering Facility: [facility] Address: [address] [place] [address] Performed By: #### 5 8410-2 #### [facility] CLIA [id number] [address] OF [place] Nucleated RBC (Bld) [#/Vol] 10*3/uL Normal <0.01 [facility] Comment on above: Order Comment: Speci men Type: BLOOD SPECIMEN Ordering Facility: [facility] Address: [address] [place] [address] Performed By: #### 5 8410-2 #### [facility] CLIA [id number] [address] OF [place] Platelet mean volume (Bld) [Entitic vol] 10.9 fL Normal 9.0-12.7 [facility] Comment on above: Order Comment: Speci men Type: BLOOD SPECIMEN Ordering Facility: [facility] Address: [address] [place] [address] Performed By: #### 5 8410-2 #### [facility] CLIA [id number] [address] STATES OF [place] Platelets (Bld) [#/Vol] 153 10*3/uL Normal 150-400 [facility] Comment on above: Order Comment: Speci men Type: BLOOD SPECIMEN Ordering Facility: [facility] Address: [address] [place] [address] Performed By: #### 5 8410-2 #### [facility] CLIA [id number] [address] OF [facility] RBC (Bld) [#/Vol] 2.97 10*6/uL Low 3.90-5.20 [facility] Comment on above: Order Comment: Jake roper Type: BLOOD SPECIMEN Ordering Facility: [facility] Address: [address] [place] [address] Performed By: #### 5 8410-2 #### [facility] CLIA [id number] [address] WBC (Bld) [#/Vol] 6.27 10*3/uL Normal 3.70-11.00 [facility] Comment on above: Order Comment: Specgianna roper Type: BLOOD SPECIMEN Ordering Facility: [facility] Address: [address] [place] [address] Performed By: #### 5 8410-2 #### [facility] CLIA [id number] [address] CNDSon 12-22-2024 CNDS HNO ID: [id number] Author: FROILAN PANTOJA MD Service: Hospital Medicine Author Type: Physician Type: Discharge Summary Filed: 12/22/2024 10:53 Note Text: DISCHARGE SUMMARY PATIENT NAME: Shannan Duarte Code Status: Full Code Highest Readmission Risk Score: 8 The 30 day readmissions risk score is derived from an internally validated risk model which evaluates patient level characteristics, utilization history, medication orders and lab results up until the day of discharge. Patients with a score of 39 or above are considered highest risk for readmission. Specific patient level drivers will be listed at the bottom of the summary. Admission Information Admission Information ADMIT DATE: 12/20/2024 DISCHARGE DATE: 12/22/2024 MY DOCTORS AND MEDICAL TEAM: My Main Hospital Doctor: Froilan Pantoja* Primary Care Provider: Ginna Armstrong MD My Medical Team Members: Treatment Team: Attending Provider: Froilan Pantoja MD Consulting: Kishore Marcelino DO Consulting: Gali Zheng MD Primary Service: [place] OCHOA MY CONDITION AT DISCHARGE: Stable REASON I WAS IN THE HOSPITAL: PE with right heart strain SUMMARY OF WHAT HAPPENED WHILE I WAS IN THE HOSPITAL: You presented to the [place] ED with shortness of breath and chest pain. CT scan showed left main and bilateral Lobar PE with evidence of right heart strain. You were transferred here for evaluation for thrombectomy, and admitted to ICU on heparin drip. Thrombectomy was recommended and performed on 12/20/24. Afterward, your symptoms improved. Heparin drip was converted to Eliquis and you were stable to discharge home after transferring out of ICU. OTHER PROBLEMS/DIAGNOSIS: Principal Problem: Pulmonary embolism, bilateral (HCC) Active Problems: Acute deep vein thrombosis (DVT) of popliteal vein of left lower extremity (HCC) Resolved Problems: Respiratory failure with hypoxia (HCC) OPERATIONS PERFORMED WHILE IN THE HOSPITAL: Mechanical Thrombectomy of pulmonary arteries IMPORTANT TEST/PROCEDURES: Echocardiogram TEST RESULTS NOT AVAILABLE AT THIS TIME: No pending results Discharge Disposition Discharge Disposition: Home With Self Care Activity When You Leave the Hospital Resume pre-hospital activity Diet Instructions Regular For Pain When You Leave the Hospital Other: Avoid NSAID's like ibuprofen and naproxen on a regular basis. Occasional use is fine. Use acetaminophen (Tylenol) as recommended on the bottle Follow Up Appointments Follow-up Appointment When: In 1 week Patient/Parents to call for appointment?: Yes Ginna Armstrong MD [phone] [address] PCP Requested Referral Follow-up Appointment Any technical applications scientist may follow with you after hospitalization. The office will give you guidance. When: In 6 weeks Patient/Parents to call for appointment?: Yes Zofia Yi MD [phone] [address] [facility] [address] PCP Requested Referral Additional Provider to Provider Information: Principal Problem: Pulmonary embolism, bilateral (HCC) Active Problems: Acute deep vein thrombosis (DVT) of popliteal vein of left lower extremity (HCC) Resolved Problems: Respiratory failure with hypoxia (HCC) Exogenous Class 1 Obesity Treatment Team: Attending Provider: Froilan Pantoja MD Consulting: Kishore Marcelino DO Consulting: Gali Zheng MD Primary Service: BENJAMIN OCHOA FINAL DIAGNOSIS: Active Hospital Problems Diagnosis POA Pulmonary embolism, bilateral (HCC) Yes Acute deep vein thrombosis (DVT) of popliteal vein of left lower extremity (HCC) Yes Resolved Hospital Problems Diagnosis POA Respiratory failure with hypoxia (HCC) Yes Transitions of Care Critical Issues: SPECIALIST FOLLOW-UP: Pulmonology VERA MEDICATION CHANGES: See list LABS AND PROCEDURES PENDING AT DISCHARGE: No pending results. FOLLOW-UP APPOINTMENTS ALREADY SCHEDULED WITH A [facility] PROVIDER: No future appointments. ALLERGIES No Known Allergies DISCHARGE MEDICATION: Medication List START taking these medications ELIQUIS DVT-PE TREAT 30D START 5 mg (74 tabs) Generic drug: apixaban Take 2 tablets by mouth two times a day for 7 days, THEN 1 tablet two times a day for 23 days. Start taking on: December 22, 2024 CONTINUE taking these medications atorvastatin 10 mg tablet Commonly known as: LIPITOR CO Q-10 100 mg Cap capsule Generic drug: coenzyme Q10 therapeutic multivitamin-minerals 9 mg iron-400 mcg tablet Commonly known as: THERA-M PLUS Where to Get Your Medications These medications were sent to [id number] - [place] [address] - [address] [facility] - [phone] [facility] [address] ELIQUIS DVT-PE TREAT 30D START 5 mg (74 tabs) Discharge Physical Exam: VITAL SIGNS: BP 140/84 Pulse 83 Tem (more content not included)... Normal [facility] Comprehensive metabolic 2000 panelon 12-22-2024 Albumin [Mass/Vol] 3.3 g/dL Low 3.9-4.9 [facility] Comment on above: Order Comment: Jake roper Type: BLOOD SPECIMEN Ordering Facility: [facility] Address: [address] [place] [address] Performed By: #### H STNT #### [facility] CLIA [id number] [address] ALP [Catalytic activity/Vol] 55 U/L Normal 34-123 [facility] Comment on above: Order Comment: Jake roper Type: BLOOD SPECIMEN Ordering Facility: [facility] Address: [address] [place] [address] Performed By: #### H STNT #### [facility] CLIA [id number] [address] ALT With P-5'-P [Catalytic activity/Vol] 12 U/L Normal 7-38 [facility] Comment on above: Order Comment: Speci men Type: BLOOD SPECIMEN Ordering Facility: [facility] Address: [address] [place] [address] Performed By: #### H STNT #### [facility] CLIA [id number] [address] Anion gap [Moles/Vol] 10 mmol/L Normal 8-15 [facility] Comment on above: Order Comment: Speci men Type: BLOOD SPECIMEN Ordering Facility: [facility] Address: [address] [place] [address] Performed By: #### H STNT #### [facility] CLIA [id number] [address] AST With P-5'-P [Catalytic activity/Vol] 12 U/L Low 13-35 [facility] Comment on above: Order Comment: Speci men Type: BLOOD SPECIMEN Ordering Facility: [facility] Address: [address] [place] [address] Performed By: #### H STNT #### [facility] CLIA [id number] [address] Bilirubin [Mass/Vol] 0.2 mg/dL Normal 0.2-1.3 [facility] Comment on above: Order Comment: Speci men Type: BLOOD SPECIMEN Ordering Facility: [facility] Address: [address] [place] [address] Performed By: #### H STNT #### [facility] CLIA [id number] [address] OF [facility] Calcium [Mass/Vol] 8.4 mg/dL Low 8.5-10.2 [facility] Comment on above: Order Comment: Speci men Type: BLOOD SPECIMEN Ordering Facility: [facility] Address: [address] [place] [address] Performed By: #### H STNT #### [facility] CLIA [id number] [address] Chloride [Moles/Vol] 107 mmol/L Normal 98-107 [facility] Comment on above: Order Comment: Speci men Type: BLOOD SPECIMEN Ordering Facility: [facility] Address: [address] [place] [address] Performed By: #### H STNT #### [facility] CLIA [id number] [address] CO2 [Moles/Vol] 24 mmol/L Normal 22-30 [facility] Comment on above: Order Comment: Speci men Type: BLOOD SPECIMEN Ordering Facility: [facility] Address: [address] [place] [address] Performed By: #### H STNT #### [facility] CLIA [id number] [address] [place] [address] Creatinine [Mass/Vol] 0.68 mg/dL Normal 0.58-0.96 [facility] Comment on above: Order Comment: Speci men Type: BLOOD SPECIMEN Ordering Facility: [facility] Address: [address] [place] [address] Performed By: #### H STNT #### [facility] CLIA [id number] [address] [place] [address] Creatinine and Glomerular filtration rate.predicted panel (S/P/Bld) 96 mL/min/1.73m??? Normal >=60 [facility] Comment on above: Order Comment: Speci men Type: BLOOD SPECIMEN Ordering Facility: [facility] Address: [address] [place] [address] Result Comment: Ana Maria mated Glomerular Filtration Rate (eGFR) is calculated using the 2020 CKD-EPI creatinine equation. This equation utilizes serum creatinine, sex, and age as parameters. The creatinine assay has traceable calibration to isotope dilution-mass spectrometry. Refer to KDIGO guidelines for clinical interpretation. In patients with unstable renal function, e.g. those with acute kidney injury, the eGFR may not accurately reflect actual GFR. Performed By: #### H STNT #### [facility] CLIA [id number] 1 [place] [address] [place] Glucose [Mass/Vol] 114 mg/dL High 74-99 [facility] Comment on above: Order Comment: Jake roper Type: BLOOD SPECIMEN Ordering Facility: [facility] Address: [address] [place] [address] Result Comment: The [place] [employer] (ADA) provides guidance for cutoff values for fasting glucose and random glucose. The ADA defines fasting as no caloric intake for at least 8 hours. Fasting plasma glucose results between 100 to 125 mg/dL indicate increased risk for diabetes (prediabetes). Fasting plasma glucose results greater than or equal to 126 mg/dL meet the criteria for diagnosis of diabetes. In the absence of unequivocal hyperglycemia, results should be confirmed by repeat testing. In a patient with classic symptoms of hyperglycemia or hyperglycemic crisis, random plasma glucose results greater than or equal to 200 mg/dL meet the criteria for diagnosis of diabetes. Reference: Standards of Medical Care in Diabetes 2016, [place] [employer] Association. Diabetes Care. 2016.39(Suppl 1). Performed By: #### H STNT #### [facility] CLIA [id number] 1 [place] [address] [place] Potassium [Moles/Vol] 4.0 mmol/L Normal 3.7-5.1 [facility] Comment on above: Order Comment: Jake roper Type: BLOOD SPECIMEN Ordering Facility: [facility] Address: [address] [place] [address] Performed By: #### H STNT #### [facility] CLIA [id number] 1 [place] [address] [place] Protein [Mass/Vol] 5.8 g/dL Low 6.3-8.0 [facility] Comment on above: Order Comment: Jake roper Type: BLOOD SPECIMEN Ordering Facility: [facility] Address: [address] [place] [address] Performed By: #### H STNT #### [facility] CLIA [id number] 1 [place] [address] [place] Sodium [Moles/Vol] 141 mmol/L Normal 136-144 [facility] Comment on above: Order Comment: Speci men Type: BLOOD SPECIMEN Ordering Facility: [facility] Address: [address] [place] [address] Performed By: #### H STNT #### [facility] CLIA [id number] [address] STATES OF [facility] Urea nitrogen [Mass/Vol] 8 mg/dL Normal 7-21 [facility] Comment on above: Order Comment: Speci men Type: BLOOD SPECIMEN Ordering Facility: [facility] Address: [address] [place] [address] Performed By: #### H STNT #### [facility] CLIA [id number] [address] [place] Magnesium SerPl-mCncon 12-22 Magnesium [Mass/Vol] 2.1 mg/dL Normal 1.7-2.3 [facility] Comment on above: Order Comment: Speci men Type: BLOOD SPECIMEN Ordering Facility: [facility] Address: [address] [place] [address] Performed By: #### H STNT #### [facility] CLIA [id number] [address] [place] Magnesium [Mass/Vol] 1.2 mg/dL Low 1.7-2.3 [facility] Comment on above: Order Comment: Speci men Type: BLOOD SPECIMEN Ordering Facility: [facility] Address: [address] [place] [address] Performed By: #### 1 9123-9, 27782-3 #### [facility] CLIA [id number] [address] [place] [address] [place] THERAPY NTon 12-22-2024 THERAPY NT HNO ID: [id number] Author: MAGEN SALAS OTR/Tamy Service: Occupational Therapy Author Type: Occupational Therapist Type: Therapy (PT/OT/Speech/Resp) Filed: 12/22/2024 09:20 Note Text: OCCUPATIONAL THERAPY MISSED VISIT SERVICE DATE: 12/22/2024 SERVICE TIME: 918 ROOM: [place] [address] Patient not seen due to (Declined need for therapy). Attempted evaluation, patient currently declining need for therapy services. Has been up in the room on her own. Will d/c OT at this time. SIGNATURE: Magen Salas OTR/L PATIENT NAME: Shannan Duarte DATE: December 22, 2024 TIME: 9:20 AM Normal [facility] THERAPY NT HNO ID: [id number] Author: ESTELA AGUILAR, PT Service: Physical Therapy Author Type: Physical Therapist Type: Therapy (PT/OT/Speech/Resp) Filed: 12/22/2024 08:57 Note Text: PHYSICAL THERAPY MISSED VISIT SERVICE DATE: 12/22/2024 SERVICE TIME: 855 ROOM: [place] [address] Patient not seen due to Declined to Participate (per OT--pt declining PT needs--will D/C PT order). SIGNATURE: Estela Aguilar PT PATIENT NAME: Shannan Duarte DATE: December 22, 2024 TIME: 8:57 AM Normal [facility] Basic metabolic 2000 panelon 12-21-2024 Anion gap [Moles/Vol] 9 mmol/L Normal 8-15 [facility] Comment on above: Order Comment: Speci men Type: BLOOD SPECIMEN Ordering Facility: [facility] Address: [address] [place] [address] Performed By: #### 2 4321-2 #### [facility] CLIA [id number] [address] [place] Calcium [Mass/Vol] 8.1 mg/dL Low 8.5-10.2 [facility] Comment on above: Order Comment: Speci men Type: BLOOD SPECIMEN Ordering Facility: [facility] Address: [address] [place] [address] Performed By: #### 2 4321-2 #### [facility] CLIA [id number] [address] [place] [address] [place] Chloride [Moles/Vol] 107 mmol/L Normal 98-107 [facility] Comment on above: Order Comment: Speci men Type: BLOOD SPECIMEN Ordering Facility: [facility] Address: [address] [place] [address] Performed By: #### 2 4321-2 #### [facility] CLIA [id number] [address] CO2 [Moles/Vol] 25 mmol/L Normal 22-30 [facility] Comment on above: Order Comment: Speci men Type: BLOOD SPECIMEN Ordering Facility: [facility] Address: [address] [place] [address] Performed By: #### 2 4321-2 #### [facility] CLIA [id number] [address] Creatinine [Mass/Vol] 0.74 mg/dL Normal 0.58-0.96 [facility] Comment on above: Order Comment: Speci men Type: BLOOD SPECIMEN Ordering Facility: [facility] Address: [address] [place] [address] Performed By: #### 2 4321-2 #### [facility] CLIA [id number] [address] Creatinine and Glomerular filtration rate.predicted panel (S/P/Bld) 89 mL/min/1.73m??? Normal >=60 [facility] Comment on above: Order Comment: Speci men Type: BLOOD SPECIMEN Ordering Facility: [facility] Address: [address] [place] [address] Result Comment: Ana Maria mated Glomerular Filtration Rate (eGFR) is calculated using the 2020 CKD-EPI creatinine equation. This equation utilizes serum creatinine, sex, and age as parameters. The creatinine assay has traceable calibration to isotope dilution-mass spectrometry. Refer to KDIGO guidelines for clinical interpretation. In patients with unstable renal function, e.g. those with acute kidney injury, the eGFR may not accurately reflect actual GFR. Performed By: #### 2 4321-2 #### [facility] CLIA [id number] [address] Glucose [Mass/Vol] 109 mg/dL High 74-99 [facility] Comment on above: Order Comment: Speci men Type: BLOOD SPECIMEN Ordering Facility: [facility] Address: [address] [place] [address] Result Comment: The [place] [employer] (ADA) provides guidance for cutoff values for fasting glucose and random glucose. The ADA defines fasting as no caloric intake for at least 8 hours. Fasting plasma glucose results between 100 to 125 mg/dL indicate increased risk for diabetes (prediabetes). Fasting plasma glucose results greater than or equal to 126 mg/dL meet the criteria for diagnosis of diabetes. In the absence of unequivocal hyperglycemia, results should be confirmed by repeat testing. In a patient with classic symptoms of hyperglycemia or hyperglycemic crisis, random plasma glucose results greater than or equal to 200 mg/dL meet the criteria for diagnosis of diabetes. Reference: Standards of Medical Care in Diabetes 2016, [place] [employer]. Diabetes Care. 2016.39(Suppl 1). Performed By: #### 2 4321-2 #### [facility] CLIA [id number] [address] [place] Potassium [Moles/Vol] 3.9 mmol/L Normal 3.7-5.1 [facility] Comment on above: Order Comment: Speci men Type: BLOOD SPECIMEN Ordering Facility: [facility] Address: [address] [place] [address] Performed By: #### 2 4321-2 #### [facility] CLIA [id number] [address] [place] [address] STATES OF [facility] Sodium [Moles/Vol] 141 mmol/L Normal 136-144 [facility] Comment on above: Order Comment: Speci men Type: BLOOD SPECIMEN Ordering Facility: [facility] Address: [address] [place] [address] Performed By: #### 2 4321-2 #### [facility] CLIA [id number] [address] [place] Urea nitrogen [Mass/Vol] 10 mg/dL Normal 7-21 [facility] Comment on above: Order Comment: Speci men Type: BLOOD SPECIMEN Ordering Facility: [facility] Address: [address] [place] [address] Performed By: #### 2 4321-2 #### [facility] CLIA [id number] [address] [place] CBC panel Auto (Bld)on 12-21 Erythrocyte distribution width (RBC) [Ratio] 12.4 % Normal 11.5-15.0 [facility] Comment on above: Order Comment: Speci men Type: BLOOD SPECIMEN Ordering Facility: [facility] Address: [address] [place] [address] Performed By: #### 5 8410-2 #### [facility] CLIA [id number] [address] OF [facility] Hematocrit (Bld) [Volume fraction] 30.1 % Low 36.0-46.0 [facility] Comment on above: Order Comment: Speci men Type: BLOOD SPECIMEN Ordering Facility: [facility] Address: [address] [place] [address] Performed By: #### 5 8410-2 #### [facility] CLIA [id number] [address] Hemoglobin (Bld) [Mass/Vol] 9.7 g/dL Low 11.5-15.5 [facility] Comment on above: Order Comment: Speci men Type: BLOOD SPECIMEN Ordering Facility: [facility] Address: [address] [place] [address] Performed By: #### 5 8410-2 #### [facility] CLIA [id number] [address] MCH (RBC) [Entitic mass] 31.2 pg Normal 26.0-34.0 [facility] Comment on above: Order Comment: Speci men Type: BLOOD SPECIMEN Ordering Facility: [facility] Address: [address] [place] [address] Performed By: #### 5 8410-2 #### [facility] CLIA [id number] [address] [place] MCHC (RBC) [Mass/Vol] 32.2 g/dL Normal 30.5-36.0 [facility] Comment on above: Order Comment: Speci men Type: BLOOD SPECIMEN Ordering Facility: [facility] Address: [address] [place] [address] Performed By: #### 5 8410-2 #### [facility] CLIA [id number] [address] MCV (RBC) [Entitic vol] 96.8 fL Normal 80.0-100.0 [facility] Comment on above: Order Comment: Speci men Type: BLOOD SPECIMEN Ordering Facility: [facility] Address: [address] [place] [address] Performed By: #### 5 8410-2 #### [facility] CLIA [id number] [address] Nucleated RBC (Bld) [#/Vol] 10*3/uL Normal <0.01 [facility] Comment on above: Order Comment: Speci men Type: BLOOD SPECIMEN Ordering Facility: [facility] Address: [address] [place] [address] Performed By: #### 5 8410-2 #### [facility] CLIA [id number] [address] Platelet mean volume (Bld) [Entitic vol] 11.0 fL Normal 9.0-12.7 [facility] Comment on above: Order Comment: Speci men Type: BLOOD SPECIMEN Ordering Facility: [facility] Address: [address] [place] [address] Performed By: #### 5 8410-2 #### [facility] CLIA [id number] [address] [place] Platelets (Bld) [#/Vol] 173 10*3/uL Normal 150-400 [facility] Comment on above: Order Comment: Speci men Type: BLOOD SPECIMEN Ordering Facility: [facility] Address: [address] [place] [address] Performed By: #### 5 8410-2 #### [facility] CLIA [id number] [address] [place] RBC (Bld) [#/Vol] 3.11 10*6/uL Low 3.90-5.20 [facility] Comment on above: Order Comment: Speci men Type: BLOOD SPECIMEN Ordering Facility: [facility] Address: [address] [place] [address] Performed By: #### 5 8410-2 #### [facility] CLIA [id number] [address] WBC (Bld) [#/Vol] 7.80 10*3/uL Normal 3.70-11.00 [facility] Comment on above: Order Comment: Speci men Type: BLOOD SPECIMEN Ordering Facility: [facility] Address: [address] [place] [address] Performed By: #### 5 8410-2 #### [facility] CLIA [id number] [address] Erythrocyte distribution width (RBC) [Ratio] 12.3 % Normal 11.5-15.0 [facility] Comment on above: Order Comment: Speci men Type: BLOOD SPECIMEN Ordering Facility: [facility] Address: [address] [place] [address] Performed By: #### 5 8410-2 #### [facility] CLIA [id number] [address] Hematocrit (Bld) [Volume fraction] 27.9 % Low 36.0-46.0 [facility] Comment on above: Order Comment: Speci men Type: BLOOD SPECIMEN Ordering Facility: [facility] Address: [address] [place] [address] Performed By: #### 5 8410-2 #### [facility] CLIA [id number] [address] Hemoglobin (Bld) [Mass/Vol] 9.2 g/dL Low 11.5-15.5 [facility] Comment on above: Order Comment: Speci men Type: BLOOD SPECIMEN Ordering Facility: [facility] Address: [address] [place] [address] Performed By: #### 5 8410-2 #### [facility] CLIA [id number] [address] MCH (RBC) [Entitic mass] 31.7 pg Normal 26.0-34.0 [facility] Comment on above: Order Comment: Speci men Type: BLOOD SPECIMEN Ordering Facility: [facility] Address: [address] [place] [address] Performed By: #### 5 8410-2 #### [facility] CLIA [id number] [address] MCHC (RBC) [Mass/Vol] 33.0 g/dL Normal 30.5-36.0 [facility] Comment on above: Order Comment: Speci men Type: BLOOD SPECIMEN Ordering Facility: [facility] Address: [address] [place] [address] Performed By: #### 5 8410-2 #### [facility] CLIA [id number] [address] MCV (RBC) [Entitic vol] 96.2 fL Normal 80.0-100.0 [facility] Comment on above: Order Comment: Speci men Type: BLOOD SPECIMEN Ordering Facility: [facility] Address: [address] [place] [address] Performed By: #### 5 8410-2 #### [facility] CLIA [id number] [address] Nucleated RBC (Bld) [#/Vol] 10*3/uL Normal <0.01 [facility] Comment on above: Order Comment: Speci men Type: BLOOD SPECIMEN Ordering Facility: [facility] Address: [address] [place] [address] Performed By: #### 5 8410-2 #### [facility] CLIA [id number] [address] Platelet mean volume (Bld) [Entitic vol] 11.0 fL Normal 9.0-12.7 [facility] Comment on above: Order Comment: Speci men Type: BLOOD SPECIMEN Ordering Facility: [facility] Address: [address] [place] [address] Performed By: #### 5 8410-2 #### [facility] CLIA [id number] [address] OF [facility] Platelets (Bld) [#/Vol] 151 10*3/uL Normal 150-400 [facility] Comment on above: Order Comment: Speci men Type: BLOOD SPECIMEN Ordering Facility: [facility] Address: [address] [place] [address] Performed By: #### 5 8410-2 #### [facility] CLIA [id number] [address] OF [facility] RBC (Bld) [#/Vol] 2.90 10*6/uL Low 3.90-5.20 [facility] Comment on above: Order Comment: Speci men Type: BLOOD SPECIMEN Ordering Facility: [facility] Address: [address] [place] [address] Performed By: #### 5 8410-2 #### [facility] CLIA [id number] [address] WBC (Bld) [#/Vol] 7.69 10*3/uL Normal 3.70-11.00 [facility] Comment on above: Order Comment: Speci men Type: BLOOD SPECIMEN Ordering Facility: [facility] Address: [address] [place] [address] Performed By: #### 5 8410-2 #### [facility] CLIA [id number] [address] NURSING PROGon 12-21-2024 NURSING PROG HNO ID: [id number] Author: ELEONORA FOUNTAIN RN Service: Nursing Author Type: Registered Nurse Type: Nursing Progress Note Filed: 12/21/2024 16:58 Note Text: Admission/Transfer Note PATIENT NAME: Shannan Duarte Patient Location: [place] [address] [address]4 Room: [place] [address] Patient transferred to [address] [place] [address] via wheelchair in stable condition. Actions taken: Patient oriented to room and call light function. New RN in the room for hand off. This note was completed by: Eleonora Fountain [facility] PT EDon 12-21-2024 PT ED HNO ID: [id number] Author: VY ALVAREZ RPh Service: Pharmacy Author Type: Pharmacist Type: Patient Education Filed: 12/21/2024 18:22 Note Text: PHARMACY ANTICOAGULATION EDUCATION Patient Name: Shannan Duarte Account #: Data Unavailable Admission Date: 12/20/2024 1:28 AM Date of Contact: December 21, 2024 Time of Contact: 6:21 PM Patient anticipated to be discharged on Apixaban as oral anticoagulation therapy. Anticoagulant history: Patient is new to anticoagulation therapy Indication for oral anticoagulation: pulmonary embolus (PE) Anticoagulant education status: Test claim ran for Eliquis : $145/ month - patient is okay with this swenson as current plan is for 3 months of Eliquis. I also gave her a coupon for the first 30 days free. Patient received full anticoagulation education Reason for taking anticoagulation How this anticoagulant works When to take medication and what to do if a dose is missed Drug interactions (Rx, OTC, herbal) and importance of notifying the doctor with any changes Do not take or discontinue any medication or over the counter medication except on the advice of the physician or pharmacist Signs/symptoms of bleeding and what to do if they occur Precautionary measures to decrease trauma/bleeding Signs/symptoms of thrombosis and what to do if they occur Need to limit or avoid alcohol consumption Carrying identification Importance of notifying healthcare provider when hospitalizations occur and when another healthcare provider has asked them to stop/hold anticoagulation medication before any procedure Importance of notifying all healthcare providers they are taking an anticoagulant Use of control measures, if applicable The importance of taking anticoagulation medication as instructed and the potential ramifications of non-compliance were explained to the patient The patient was provided supplemental material which includes the following topics: side effects, potential adverse drug reactions, drug interactions, compliance issues, follow-up with physician, and follow-up monitoring. Vy Alvarez RPh [facility] aPTT PPPon 12-21-2024 aPTT Coag (PPP) [Time] 101.6 s High 23.0-32.4 [facility] Comment on above: Order Comment: Speci men Type: BLOOD SPECIMEN Ordering Facility: [facility] Address: [address] [place] [address] Performed By: #### 5 8410-2 #### [facility] CLIA [id number] [address] OF [facility] aPTT Coag (PPP) [Time] 49.0 s High 23.0-32.4 [facility] Comment on above: Order Comment: Speci men Type: BLOOD SPECIMEN Ordering Facility: [facility] Address: [address] [place] [address] Performed By: #### H STNT #### [facility] CLIA [id number] [address] Basic metabolic 2000 panelon 12-20-2024 Anion gap [Moles/Vol] 10 mmol/L Normal 8-15 [facility] Comment on above: Order Comment: Speci men Type: BLOOD SPECIMEN Ordering Facility: [facility] Address: [address] [place] [address] Performed By: #### H STNT #### [facility] CLIA [id number] [address] [place] Calcium [Mass/Vol] 8.8 mg/dL Normal 8.5-10.2 [facility] Comment on above: Order Comment: Speci men Type: BLOOD SPECIMEN Ordering Facility: [facility] Address: [address] [place] [address] Performed By: #### H STNT #### [facility] CLIA [id number] [address] [place] Chloride [Moles/Vol] 102 mmol/L Normal 98-107 [facility] Comment on above: Order Comment: Speci men Type: BLOOD SPECIMEN Ordering Facility: [facility] Address: [address] [place] [address] Performed By: #### H STNT #### [facility] CLIA [id number] [address] [place] CO2 [Moles/Vol] 25 mmol/L Normal 22-30 [facility] Comment on above: Order Comment: Speci men Type: BLOOD SPECIMEN Ordering Facility: [facility] Address: [address] [place] [address] Performed By: #### H STNT #### [facility] CLIA [id number] [address] Creatinine [Mass/Vol] 0.71 mg/dL Normal 0.58-0.96 [facility] Comment on above: Order Comment: Jake men Type: BLOOD SPECIMEN Ordering Facility: [facility] Address: [address] [place] [address] Performed By: #### H STNT #### [facility] CLIA [id number] [address] Creatinine and Glomerular filtration rate.predicted panel (S/P/Bld) 93 mL/min/1.73m??? Normal >=60 [facility] Comment on above: Order Comment: Jake judson Type: BLOOD SPECIMEN Ordering Facility: [facility] Address: [address] [place] [address] Result Comment: Ana Maria mated Glomerular Filtration Rate (eGFR) is calculated using the 2020 CKD-EPI creatinine equation. This equation utilizes serum creatinine, sex, and age as parameters. The creatinine assay has traceable calibration to isotope dilution-mass spectrometry. Refer to KDIGO guidelines for clinical interpretation. In patients with unstable renal function, e.g. those with acute kidney injury, the eGFR may not accurately reflect actual GFR. Performed By: #### H STNT #### [facility] CLIA [id number] [address] [place] [address] Glucose [Mass/Vol] 111 mg/dL High 74-99 [facility] Comment on above: Order Comment: Christiegianna roper Type: BLOOD SPECIMEN Ordering Facility: [facility] Address: [address] [place] [address] Result Comment: The [place] [employer] (ADA) provides guidance for cutoff values for fasting glucose and random glucose. The ADA defines fasting as no caloric intake for at least 8 hours. Fasting plasma glucose results between 100 to 125 mg/dL indicate increased risk for diabetes (prediabetes). Fasting plasma glucose results greater than or equal to 126 mg/dL meet the criteria for diagnosis of diabetes. In the absence of unequivocal hyperglycemia, results should be confirmed by repeat testing. In a patient with classic symptoms of hyperglycemia or hyperglycemic crisis, random plasma glucose results greater than or equal to 200 mg/dL meet the criteria for diagnosis of diabetes. Reference: Standards of Medical Care in Diabetes 2016, [place] [employer]. Diabetes Care. 2016.39(Suppl 1). Performed By: #### H STNT #### [facility] CLIA [id number] [address] Potassium [Moles/Vol] 3.8 mmol/L Normal 3.7-5.1 [facility] Comment on above: Order Comment: Jake roper Type: BLOOD SPECIMEN Ordering Facility: [facility] Address: [address] [place] [address] Performed By: #### H STNT #### [facility] CLIA [id number] [address] Sodium [Moles/Vol] 137 mmol/L Normal 136-144 [facility] Comment on above: Order Comment: Christiei judson Type: BLOOD SPECIMEN Ordering Facility: [facility] Address: [address] [place] [address] Performed By: #### H STNT #### [facility] CLIA [id number] [address] Urea nitrogen [Mass/Vol] 12 mg/dL Normal 7-21 [facility] Comment on above: Order Comment: Jake roper Type: BLOOD SPECIMEN Ordering Facility: [facility] Address: [address] [place] [address] Performed By: #### H STNT #### [facility] CLIA [id number] [address] CBC panel Auto (Bld)on 12-20 Erythrocyte distribution width (RBC) [Ratio] 12.2 % Normal 11.5-15.0 [facility] Comment on above: Order Comment: Christiei men Type: BLOOD SPECIMEN Ordering Facility: [facility] Address: [address] [place] [address] Performed By: #### H STNT #### [facility] CLIA [id number] [address] Hematocrit (Bld) [Volume fraction] 34.6 % Low 36.0-46.0 [facility] Comment on above: Order Comment: Speci men Type: BLOOD SPECIMEN Ordering Facility: [facility] Address: [address] [place] [address] Performed By: #### H STNT #### [facility] CLIA [id number] [address] OF [facility] Hemoglobin (Bld) [Mass/Vol] 11.6 g/dL Normal 11.5-15.5 [facility] Comment on above: Order Comment: Speci men Type: BLOOD SPECIMEN Ordering Facility: [facility] Address: [address] [place] [address] Performed By: #### H STNT #### [facility] CLIA [id number] [address] MCH (RBC) [Entitic mass] 31.0 pg Normal 26.0-34.0 [facility] Comment on above: Order Comment: Speci men Type: BLOOD SPECIMEN Ordering Facility: [facility] Address: [address] [place] [address] Performed By: #### H STNT #### [facility] CLIA [id number] [address] OF [facility] MCHC (RBC) [Mass/Vol] 33.5 g/dL Normal 30.5-36.0 [facility] Comment on above: Order Comment: Speci men Type: BLOOD SPECIMEN Ordering Facility: [facility] Address: [address] [place] [address] Performed By: #### H STNT #### [facility] CLIA [id number] [address] MCV (RBC) [Entitic vol] 92.5 fL Normal 80.0-100.0 [facility] Comment on above: Order Comment: Speci men Type: BLOOD SPECIMEN Ordering Facility: [facility] Address: [address] [place] [address] Performed By: #### H STNT #### [facility] CLIA [id number] [address] [place] Nucleated RBC (Bld) [#/Vol] 10*3/uL Normal <0.01 [facility] Comment on above: Order Comment: Speci men Type: BLOOD SPECIMEN Ordering Facility: [facility] Address: [address] [place] [address] Performed By: #### H STNT #### [facility] CLIA [id number] [address] [place] Platelet mean volume (Bld) [Entitic vol] 10.6 fL Normal 9.0-12.7 [facility] Comment on above: Order Comment: Speci men Type: BLOOD SPECIMEN Ordering Facility: [facility] Address: [address] [place] [address] Performed By: #### H STNT #### [facility] CLIA [id number] [address] [place] Platelets (Bld) [#/Vol] 180 10*3/uL Normal 150-400 [facility] Comment on above: Order Comment: Speci men Type: BLOOD SPECIMEN Ordering Facility: [facility] Address: [address] [place] [address] Performed By: #### H STNT #### [facility] CLIA [id number] [address] [place] RBC (Bld) [#/Vol] 3.74 10*6/uL Low 3.90-5.20 [facility] Comment on above: Order Comment: Speci men Type: BLOOD SPECIMEN Ordering Facility: [facility] Address: [address] [place] [address] Performed By: #### H STNT #### [facility] CLIA [id number] [address] [place] WBC (Bld) [#/Vol] 8.65 10*3/uL Normal 3.70-11.00 [facility] Comment on above: Order Comment: Speci men Type: BLOOD SPECIMEN Ordering Facility: [facility] Address: [address], [place] [id number] Performed By: #### H STNT #### [facility] CLIA [id number] [address] [place] [id number] [place] CONSULTon 12-20-2024 CONSULT HNO ID: [id number] Author: KISHORE MARCELINO DO Service: General Surgery Author Type: Resident Type: Consults Filed: 12/21/2024 09:50 Note Text: Attestation signed by Kishore Marcelino DO at 12/21/2024 9:50 AM Attending Note I personally saw and examined the patient 12/20/24. I reviewed the resident's note. I agree with the resident's assessment and plan unless otherwise noted. Plan for mechanical thrombectomy with Dr. Holley this afternoon. Signature: Kishore Marcelino DO CONSULT: Vascular Surgery Service SERVICE DATE: 12/20/2024 SERVICE TIME: 12:50 PM REASON FOR CONSULT: B/L PE NATURE OF CONSULT: Routine Subjective 69 year old female w/PMH of HLD who presents w/ B/L PE and DVT of LLE for which vascular surgery was consulted. Pt presented to [facility] after experiencing abrupt onset of Shortness of Breath and pleuritic chest pain that started yesterday. Pt had CTA Chest that showed a proximal emboli within the R interlobar artery and distal L main pulmonary artery with concern for possible R heart strain. Pt had ECHO that confirmed R heart strain. DVT US was also obtained that showed L peroneal vein DVT. Pt currently in no distress, on 1L NC, sating well. Pt denies ever having any DVT/PE in past, h/o hypercoagulability, afib, or trauma. Pt recently had oral surgery for her implant on 11/29 which was in [place]. Pt was in car for 3 hours for that surgery but otherwise did not have any inciting or provoking event for her PE/DVT. Does not take any anticoagulation. Vascular/Thoracic Surgical History or Testing: see above Smoking Status: Former smoker (quit 1 yr ago, 50 pack year history) Ambulatory Status: ambulatory FUNCTIONAL STATUS: Independent No past medical history on file. No past surgical history on file. No family history on file. atorvastatin (LIPITOR) 10 mg tablet, Take 10 mg by mouth daily at bedtime., Disp: , Rfl: , Taking therapeutic multivitamin-minerals (THERA-M PLUS) 9 mg iron-400 mcg tablet, Take 1 tablet by mouth once daily., Disp: , Rfl: , Taking coenzyme Q10 (CO Q-10) 100 mg cap capsule, Take 100 mg by mouth once daily., Disp: , Rfl: , Taking Current Facility-Administered Medications Medication Dose Route Frequency NaCl 0.9% iv flush bag 20 mL INTRAVENOUS PRN heparin iv infusion 25,000 units in NaCl 0.45% 250 mL STANDARD NOMOGRAM 0-3,000 Units/hr INTRAVENOUS CONTINUOUS And heparin RATE CHANGE bolus 1,000-10,000 Units for subtherapeutic PTTAC results 1,000-10,000 Units INTRAVENOUS PRN sodium chloride 0.9 % (flush) 2-10 mL (BD POSIFLUSH) 2-10 mL INTRAVENOUS DIRECTED PRN And perflutren lipid microspheres 1.1 mg/mL 1.3 mL injection (DEFINITY) 1.3 mL INTRAVENOUS DIRECTED PRN magnesium sulfate iv piggyback in sterile water 2 g 50 mL 2 g INTRAVENOUS ONCE Allergies As of Date: 12/19/2024 (Not on File) COMPLETE REVIEW OF SYSTEMS: COMPLETE REVIEW OF SYSTEMS: GENERAL: No weight loss, malaise or fevers. HEENT: Negative for frequent or significant headaches, No changes in hearing or vision, no nose bleeds or other nasal problems. NECK: Negative for lumps, goiter, pain and significant neck swelling. RESPIRATORY: Negative for cough, hemoptysis, wheezing, COPD, dyspnea or shortness of breath. CARDIOVASCULAR: Negative for chest pain, leg swelling, hypertension, CHF or palpitations. GI: No nausea, vomiting, or diarrhea. MUSCULOSKELETAL: Negative for joint pain or swelling, back pain or muscle pain. SKIN: Negative for lesions, rash, and itching. PSYCH: Negative for sleep disturbance, mood disorder and recent psychosocial stressors. NEURO: No history of headaches, syncope, paralysis, seizures or tremors. Objective PHYSICAL EXAM: GENERAL: No distress, Alert NEURO: AANDOx3, CN II-XII grossly intact, mental status appropriate HEENT: normocephalic, atraumatic LUNGS: Unlabored breathing O2 Therapy: Nasal Cannula CARDIAC: Regular rate and rhythm as above EXTREMITIES: CARLSON, no lesions or rashes PULSES/SIGNALS: Palpable B/L DP/PT BP 130/62 Pulse 80 Resp 13 Ht 5' 8 (1.73m) Wt 201 lb 11.5 oz (91.5kg) SpO2 96% BMI 30.68 kg/(m2). O2 Therapy: Nasal Cannula, Liters (Numeric Only): (S) 1 DATA: Labs: Recent Labs 12/20/24 0200 NA 137 K 3.8 CHLOR 102 CO2 25 BUN 12 CREAT 0.71 GLUC 111* ANION 10 CA 8.8 MG 1.9 WBC 8.65 HB 11.6 HCT 34.6* PLT 180 INR 1.1 Diagnostic tests reviewed for today's visit: Most recent labs and imaging results. US DVT LOWER BILATERAL Final Result IMPRESSION: Negative study for proximal DVT in the left and right lower extremities. Positive study for acute calf DVT in the left peroneal vein. Negative study for superficial thrombophlebitis in the imaged segments of the left and right lower extremities. URGENT RESU (more content not included)... Normal [facility] ECHOon 12-20-2024 Echocardiography Echocardiography Report: Transthoracic Echo [facility] Date of service: 12/20/2024 7:18:15 AM [facility] Ordering physician: GLO STORY Exam indication: Respiratory failure with established non-cardiac etiology Technologist: Cristin Hernandez Interpreting physician: Queta Lanier MD PATIENT: Name: SHANNAN DUARTE : 1955 Age: 69 years Gender: F Primary rhythm: sinus. Height: 172.70 cm BSA: 2.10 m Weight: 91.50 kg BMI: 30.7 kg/m Heart rate 73 bpm Blood pressure 127/83 mmHg Technically difficult exam due to respiratory interference. Color Doppler was utilized to interrogate the cardiac valves assessed and spectral Doppler was utilized to determine the flow velocities and pressure gradients reported in this exam. MEASUREMENTS: Value Indexed Normal Max aortic dimension 3.3 cm Ao < 3.8 LV ID (diastole) 4.1 cm (2D) 1.94 cm/m LV ID (systole) 3.0 cm (2D) 1.43 cm/m IVS, leaflet tips 0.9 cm (2D) Posterior wall thickness 0.8 cm (2D) Left ventricular mass 106 g (2D) 51 g/m LV stroke volume 50 ml (2D biplane) LV end diastolic volume 84 ml (2D biplane) 40.2 ml/m 29<=EDVi<62 LV end systolic volume 34 ml (2D biplane) 16.3 ml/m Ejection Fraction 59 % (2D biplane) EF > 54 FINDINGS: LEFT VENTRICLE The left ventricle is normal in size. Left ventricular systolic function is normal globally. Wall Motion: All scored segments are normal. RIGHT VENTRICLE The right ventricle is normal in size. Right ventricular systolic function is mildly decreased. RV systolic tissue Doppler velocity is 13.0 cm/s. Tricuspid annular displacement is 1.6 cm. Estimated right ventricular systolic pressure is likely underestimated due to a weak or incomplete tricuspid regurgitation signal and is, at least, 31 mmHg consistent with normal pulmonary artery pressures. Estimated right atrial pressure is 8 mmHg based on IVC assessment. RIGHT ATRIUM Inferior Vena Cava: The inferior vena cava appears dilated measuring 2.5 cm. The vessel decreases greater than 50 percent with inspiration. MITRAL VALVE The mitral valve leaflets are structurally normal. There is trace mitral valve regurgitation. TRICUSPID VALVE The tricuspid valve leaflets are structurally normal. There is trace tricuspid valve regurgitation. The hepatic venous pattern showed normal systolic flow. AORTIC VALVE The aortic valve cusps are structurally normal. There is no aortic valve regurgitation. Tricuspid aortic valve. PULMONIC VALVE There is trace pulmonic valve regurgitation. There is no thickening. AORTA The visualized aorta is normal in size. Measurements - Mid ascending aorta 3.3 cm. PULMONARY ARTERIES The pulmonary arteries are unseen or not interrogated. INTERATRIAL SEPTUM There is no evidence of intracardiac shunting as detected by Doppler. INTERVENTRICULAR SEPTUM There is systolic flattening consistent with RV pressure overload, but there is no diastolic flattening of the interventricular septum. PERICARDIUM There is no pericardial effusion. CONCLUSIONS: - Technically difficult exam due to respiratory interference. - Exam indication: Respiratory failure with established non-cardiac etiology - The left ventricle is normal in size. Left ventricular systolic function is normal. EF = 59 5% (2D biplane) - The right ventricle is normal in size. Right ventricular systolic function is mildly decreased. - There is systolic flattening consistent with RV pressure overload, but there is no diastolic flattening of the interventricular septum. - Estimated right ventricular systolic pressure is likely underestimated due to a weak or incomplete tricuspid regurgitation signal and is, at least, 31 mmHg consistent with normal pulmonary artery pressures. Estimated right atrial pressure is 8 mmHg based on IVC assessment. - There are no significant valvular abnormalities. - The patient has not had a prior CC echocardiographic exam for comparison. * * * Final * * * [facility] Image : [id number] Normal [facility] HIGH SENSITIVITY TROPONIN To n 12-20-2024 Troponin T.cardiac High sensitivity method [Mass/Vol] 33 ng/L High <12 [facility] Comment on above: Order Comment: Jake roper Type: BLOOD SPECIMEN Ordering Facility: [facility] Address: [address] [place] [address] Performed By: #### H STNT #### [facility] CLIA [id number] 1 [place] [address] [place] Magnesium SerPl-mCncon 12-20 Magnesium [Mass/Vol] 1.9 mg/dL Normal 1.7-2.3 [facility] Comment on above: Order Comment: Jake roper Type: BLOOD SPECIMEN Ordering Facility: [facility] Address: [address] [place] [address] Performed By: #### H STNT #### [facility] CLIA [id number] [address] [place] [id number] [facility] NT-proBNP [facility] Natriuretic peptide.B prohormone N-Terminal [Mass/Vol] 2733 pg/mL High <125 [facility] Comment on above: Order Comment: Speci men Type: BLOOD SPECIMEN Ordering Facility: [facility] Address: [facility] [place] [address] Performed By: #### H STNT #### [facility] CLIA [id number] [address] [place] [id number] [facility] OPERATIVE NOon 12-20-2024 OPERATIVE NO HNO ID: [id number] Author: YOEL HOLLEY MD Service: Vascular Surgery Author Type: Physician Type: Operative Report Filed: 12/29/2024 10:57 Note Text: OPERATIVE/PROCEDURE REPORT LOG ID: [id number] Surgery/Procedure Date: 12/20/2024 Incision/Procedure Start Time: 2:00 PM Incision Close/Procedure End Time: 3:48 PM Surgeon(s)/Procedurali st(s) and Intensive Care Ambulance Paramedic(s): Surgeons and Role: * Yoel Holley MD - Primary No Additional Staff Procedure(s): US guided common femoral vein access, pelvic and IVC venogram, pulmonary angiogram, pulmonary artery mechanical thrombectomy Anesthesia: Local Anesthesia Operative indications: 69 year old female who presents for submassive bilateral PE Procedure details: The procedure was performed by Yoel Holley MD in the interventional radiology suite. The patient was taken to the IR suite where informed consent was obtained. The patient was positioned supine on the operating table. The right groin was prepped and draped in the usual sterile fashion. All elements of maximal barrier technique including cap and mask, sterile gown, sterile gloves, a large sterile drape, hand hygiene, and appropriate prep agent for cutaneous antisepsis were utilized and maintained during the procedure. After time-in, the common femoral vein was interrogated with the ultrasound and found to be patent. Utilizing local anesthesia, ultrasound guidance, and a micropuncture system, access was obtained in the right femoral vein and the tip of the needle within the vein was documented. Utilizing guidewire exchange and Seldinger technique, a micro sheath was introduced into the vein. Microwire was advanced centrally, the needle was removed and a 4 Eritrean micropuncture sheath was advanced into the target vein. A 0.035 was advanced centrally into the inferior vena cava. The micropuncture sheath was exchanged for a 6F vascular sheath. Contrast was injected through the sheath and Right external iliac and IVC venography was performed to confirm patency. A Combination of 5F angled pigtail catheter and a Bentson guidewire was advanced in the main pulmonary artery. DSA imaging was obtained. The Bentson guidewire was advanced into the right pulmonary arterial basilar trunk. The curved pigtail catheter was exchanged for a Berenstein catheter. Combination of Berenstein catheter and the guidewire were advanced into the right lower lobe subsegmental pulmonary artery. Bentson wire was exchanged for a short tip Amplatz and the catheter was removed. The patient was given a Heparin bolus and the 6 Eritrean sheath was exchanged for 24 Eritrean Inari introducer sheath. A 24 Eritrean Triever aspiration catheter was advanced into the right pulmonary artery, descending branch. Aspiration mechanical thrombectomy was performed with removal of prominent amount of thrombus. Blood was returned to the patient with the FlowSaver system. Pulmonary angiography was performed, demonstrating minimal residual nonocclusive thrombus within the descending pulmonary artery. A 20 F Triever aspiration catheter was then used in the descending pulmonary segment with removal of additional thrombus and angiography revealed improvement in this segment. The catheter was then repositioned into the main pulmonary artery. Combination of Berenstein catheter and Bentson guidewire was advanced into the left basilar segmental pulmonary artery. The Bentson guidewire was exchanged for Amplatz stiff guidewire. The catheter was advanced into the left descending pulmonary artery. Aspiration thrombectomy was performed with removal of moderate thrombus. Blood was returned to the patient with the FlowSaver system. Pulmonary angiography was performed, demonstrating improvement without residual thrombus within the proximal ascending and descending left pulmonary artery. A Prolene suture was placed at the access site. All catheters and sheaths were removed and hemostasis was achieved with manual pressure over the access site. Sterile dressing was applied. The patient tolerated the procedure well. There were no apparent complications and the patient was transferred to recovery in stable condition. Findings: Patent right common femoral, right external iliac and right common iliac veins. Prominent amount of thrombus within the main pulmonary arteries and their main branches. Successful fluoroscopic-guided pulmonary arterial aspiration thrombectomy with significant interval decrease in amount of pulmonary arterial thrombotic burden Pre-Op/Pre-Procedure Diagnosis: Submassive PE Post-Op/Post-Procedure Diagnosis: Same Estimated Blood Loss: 100 ml Specimens: None Implantable Devices: * No implants in log * Complications: None No qualified resident/fellow was available. I/primary surgeon/proceduralist performed the entire procedure. Yoel Holley MD Normal [facility] PT panel Coag (PPP)on 2024 INR Coag (PPP) [Relative time] 1.1 {INR} Normal 0.9-1.3 [facility] Comment on above: Order Comment: Jake roper Type: BLOOD SPECIMEN Ordering Facility: [facility] Address: [address] [place] [address] Result Comment: Benita min K Antagonist (VKA) Therapeutic Range: INR 2 to 3 (Target INR of 2.5) Note: For patients treated with VKA drugs, such as warfarin, the [employer] [employer] 2012 Guideline recommends a therapeutic INR range of 2 to 3 (target INR of 2.5). This recommendation includes high-risk patients with antiphospholipid syndrome with previous arterial or venous thromboembolism, current-generation mechanical or bioprosthetic aortic heart valve replacement. Note: Patients with mechanical aortic valve replacement and additional risk factors for thromboembolic events (atrial fibrillation, previous thromboembolism, LV dysfunction, hypercoagulable conditions) or an older generation mechanical AVR (i.e., ball in-Cage) or any mechanical MVR should have a INR therapeutic range of 2.5 to 3.5 (target INR of 3). Alma Delia GH, et al. Chest 2012, 141:7S-47S Rosa Elena RA et al. [facility] 2017, 70: 252-289 Performed By: #### 5 8410-2 #### [facility] CLIA [id number] [address] STATES OF [facility] PT Coag (PPP) [Time] 11.5 s Normal 9.7-13.0 [facility] Comment on above: Order Comment: Jake roper Type: BLOOD SPECIMEN Ordering Facility: [facility] Address: [address] [place] [id number] Performed By: #### 5 8410-2 #### [facility] CLIA [id number] [address] [place] [address] [place] US DVT LOWER BILon 5 US DVT LOWER NEAL * * *Final Report* * * DATE OF EXAM: Dec 20 2024 2:43AM [place] 1005 - US DVT LOWER NEAL / PROCEDURE REASON: Leg deep vein thrombosis (DVT), new symptoms * * * * Physician Interpretation * * * * EXAMINATION: RIGHT AND LEFT LOWER EXTREMITY DEEP VENOUS ULTRASOUND WITH DOPPLER IMAGING CLINICAL HISTORY: Pulmonary embolism, evaluate for therapy TECHNIQUE: Grayscale with compression maneuvers, color Doppler and spectral Doppler imaging of the right and left proximal deep veins was performed. Grayscale with compression maneuvers of the right and left peroneal and posterior tibial veins was performed. The right and left great and small saphenous veins were evaluated at their insertion to the deep system. Images were obtained and stored in a permanent archive. MQ: [id number] COMPARISON: None RESULT: RIGHT LOWER EXTREMITY PROXIMAL DEEP VEINS Distal External Iliac, Common Femoral and Proximal Profunda Veins: Compression: Normal Doppler: Normal, spontaneous respirophasic flow. Normal response to augmentation. Femoral vein: Compression: Normal Doppler: Normal, spontaneous respirophasic flow. Normal response to augmentation. Popliteal vein: Compression: Normal Doppler: Normal, spontaneous respirophasic flow. Normal response to augmentation. CALF DEEP VEINS Peroneal veins: Normal compression. Posterior tibial veins: Normal compression. Gastrocnemius and Soleal veins: Not imaged. SUPERFICIAL VEINS Great saphenous: Patent and compressible at insertion into common femoral vein; not otherwise assessed. Small Saphenous: Patent and compressible in the proximal calf, not otherwise assessed. LEFT LOWER EXTREMITY PROXIMAL DEEP VEINS Distal External Iliac, Common Femoral and Proximal Profunda Veins: Compression: Normal Doppler: Normal, spontaneous respirophasic flow. Normal response to augmentation. Femoral vein: Compression: Normal Doppler: Normal, spontaneous respirophasic flow. Normal response to augmentation. Popliteal vein: Compression: Normal Doppler: Normal, spontaneous respirophasic flow. Normal response to augmentation. CALF DEEP VEINS Peroneal veins: Abnormal compression. Posterior tibial veins: Normal compression. Gastrocnemius and Soleal veins: Not imaged. SUPERFICIAL VEINS Great saphenous: Patent and compressible at insertion into common femoral vein; not otherwise assessed. Small Saphenous: Patent and compressible in the proximal calf, not otherwise assessed. IMPRESSION: Negative study for proximal DVT in the left and right lower extremities. Positive study for acute calf DVT in the left peroneal vein. Negative study for superficial thrombophlebitis in the imaged segments of the left and right lower extremities. URGENT RESULTS Acuity: Urgent Communication: Communicated with Pari Baptiste DO on 12/20/2024 5:08 AM via verbal communication. --END OF FINDING-- Parcel Carrier: PSCB Transcribe Date/Time: Dec 20 2024 5:02A Dictated by : FIOR ANGEL MD This examination was interpreted and the report reviewed and electronically signed by: FIOR ANGEL MD on Dec 20 2024 5:18AM EST [id number] Normal [facility] aPTT PPPon 12-20-2024 aPTT Coag (PPP) [Time] 40.7 s High 23.0-32.4 [facility] Comment on above: Order Comment: Jake roper Type: BLOOD SPECIMENOrdering Facility: [facility] Address: [address] [place] [address] Performed By: #### 1 4979-9 ####[facility] [id number] [address] aPTT Coag (PPP) [Time] s High 23.0-32.4 [facility] Comment on above: Order Comment: Jake roper Type: BLOOD SPECIMEN Ordering Facility: [facility] Address: [address] [place] [address] Performed By: #### 5 8410-2 #### [facility] CLIA [id number] [address] aPTT Coag (PPP) [Time] EXTREMELY ABNORMA L RESULT. No clot detected at 320 seconds. Refer to anticoagulation nomogram for further actions. Critically abnormal (none) [facility] Comment on above: Order Comment: Jake roper Type: BLOOD SPECIMEN Ordering Facility: [facility] Address: [address] [place] [address] Performed By: #### 1 4979-9 #### [facility] CLIA [id number] [address] aPTT Coag (PPP) [Time] 50.1 s High 23.0-32.4 [facility] Comment on above: Order Comment: Speci men Type: BLOOD SPECIMEN Ordering Facility: [facility] Address: [address] [place] [address] Performed By: #### H STNT #### [facility] CLIA [id number] [address] aPTT Coag (PPP) [Time] 60.4 s High 23.0-32.4 [facility] Comment on above: Order Comment: Speci men Type: BLOOD SPECIMEN Ordering Facility: [facility] Address: [address] [place] [address] Performed By: #### 5 8410-2 #### [facility] CLIA [id number] [address] 12 Lead EKGon 12-19-2024 12 Lead EKG [facility] [address] [place] [address] 12 Lead EKG 12/19/24 1930 MR#: [id number] Acct: [id number] Name: SHANNAN DUARTE Rep #: [id number] : 1955 69 From: Charlie Calderón MD Attending Dr: Status: DEP ER Ordering Dr: Gustavo Rader DO Date: 5 Location: ED Sex: F C Admitted: Test Reason : PALPITATIONS Blood Pressure : */* mmHG Vent. Rate : 105 BPM Atrial Rate : 105 BPM P-R Int : 154 ms QRS Dur : 78 ms QT Int : 350 ms P-R-T Axes : 29 -3 22 degrees QTcB Int : 462 ms Sinus tachycardia Inferior infarct , age undetermined Cannot rule out Anterior infarct , age undetermined Abnormal ECG Confirmed by CHARLIE CALDERÓN MD ([id number]), assignment editor JESSICA SCHMIDT ([id number]) on 12/20/2024 1:49:44 PM Referred By: DARBY Confirmed By: CHARLIE CALDERÓN MD 12/20/24 8299 Date Charlie Calderón MD CC: Dr. Gustavo Rader, DO; Dr. Ginna Armstrong MD Signed Normal [facility] Absolute lymphocyte countOrd ered By: Gustavo Rader on 12-19-2024 Lymphocytes Auto (Unsp spec) [#/Vol] 1.72 10*3/uL 0.83-4.51 [facility] Absolute neutrophil countOrd ered By: Ugstavonivia Rader on 12-19-2024 Neutrophils (Bld) [#/Vol] 9.2 10*3/uL High 2.0-7.7 [facility] Activated partial thrombopla stin time (aPTT) in platelet poor plasma by coagulation aOrdered By: Gustavo Rader on 12-19-2024 aPTT Coag (PPP) [Time] 24.9 s 24.1-36.[address] [facility] Anion gap in Serum or Plasma Ordered By: Gustavonivia Rader on 12-19-2024 Anion gap [Moles/Vol] 15 mmol/L 5-15 [facility] Automated lymphocyte count a s percentage of total leukocytesOrdered By: Gustavo Rader on 12-19-2024 Lymphocytes/100 WBC Auto (Unsp spec) 14.3 % Low 19-41 [facility] BUN/creatinine ratioOrdered By: Gustavo Rader on 12-19-2024 Urea nitrogen/Creatinine [Mass ratio] 16.4 mg/mg 10-20 [facility] Basic Metabolic Profile (BMP )on 12-19-2024 BUN/CRE 16.4 RATIO Normal 10-20 [facility] Comment on above: Performed By: #### L 501.4021, L500.2500, L100.0100 ####[facility] [address] [place], [address] Calcium [Mass/Vol] 9.5 mg/dL Normal 7.6-11.0 [facility] Comment on above: Performed By: #### L 501.4021, L500.2500, L100.0100 ####[facility] [address] [place], [address] Chloride [Moles/Vol] 100 mmol/L Normal 98-108 [facility] Comment on above: Performed By: #### L 501.4021, L500.2500, L100.0100 ####[facility] [address] [place], [address] CO2 [Moles/Vol] 23.7 mmol/L Normal 21.0-32.0 [facility] Comment on above: Performed By: #### L 501.4021, L500.2500, L100.0100 ####[facility] [address] [place], [address] Creatinine [Mass/Vol] 0.87 mg/dL Normal 0.70-1.20 [facility] Comment on above: Performed By: #### L 501.4021, L500.2500, L100.0100 ####[facility] [address] [place], [address] ECRCL 73.76 ml/min Normal 50-250 [facility] Comment on above: Performed By: #### L 501.4021, L500.2500, L100.0100 ####[facility] [address] [place], [address] GAP 15 Normal 5-15 [facility] Comment on above: Performed By: #### L 501.4021, L500.2500, L100.0100 ####[facility] [address] [place], [address] GFR/1.73 sq M.predicted among non-blacks MDRD (S/P/Bld) [Vol rate/Area] 73 mL/min/{1.73_m2} Normal >60 [facility] Comment on above: Result Comment: mL/m in/1.73m2 CKD-EPI Creatinine Equation (2020) Performed By: #### L 501.4021, L500.2500, L100.0100 ####[facility] [address] [place], [address] Glucose [Mass/Vol] 142 mg/dL High 70-99 [facility] Comment on above: Performed By: #### L 501.4021, L500.2500, L100.0100 ####[facility] [address] [place], [address] Potassium [Moles/Vol] 3.5 mmol/L Normal 3.3-5.1 [facility] Comment on above: Performed By: #### L 501.4021, L500.2500, L100.0100 ####[facility] [address] [place], [address] Sodium [Moles/Vol] 138 mmol/L Normal 133-145 [facility] Comment on above: Performed By: #### L 501.4021, L500.2500, L100.0100 ####[facility] [address] [place], [address] Urea nitrogen [Mass/Vol] 14 mg/dL Normal 4-19 [facility] Comment on above: Performed By: #### L 501.4021, L500.2500, L100.0100 ####[facility] [address] [place], [address] Basophil percentageOrdered B y: Gustavo Rader on 12-19-2024 Basophils/100 WBC (Bld) 0.4 % 0-1 [facility] CBC W/Diff, Automatedon Absolute Lymph 1.72 X10 3/uL Normal 0.83-4.51 [facility] Comment on above: Performed By: #### L 501.4021, L500.2500, L100.0100 ####[facility] [address] [place], [address] Absolute Neut 9.2 X10 3/uL High 2.0-7.7 [facility] Comment on above: Performed By: #### L 501.4021, L500.2500, L100.0100 ####[facility] [address] [place], [address] Basophils/100 WBC (Bld) 0.4 % Normal 0-1 [facility] Comment on above: Performed By: #### L 501.4021, L500.2500, L100.0100 ####[facility] [address] [place], [address] Eosinophils/100 WBC (Bld) 1.1 % Normal 0-5 [facility] Comment on above: Performed By: #### L 501.4021, L500.2500, L100.0100 ####[facility] [address] [place], [address] Erythrocyte distribution width (RBC) [Ratio] 12.2 % Normal 11.6-14.6 [facility] Comment on above: Performed By: #### L 501.4021, L500.2500, L100.0100 ####[facility] [address] [place], [address] Hematocrit (Bld) [Volume fraction] 38.6 % Normal 37-47 [facility] Comment on above: Performed By: #### L 501.4021, L500.2500, L100.0100 ####[facility] [address] [place], [address] Hemoglobin (Bld) [Mass/Vol] 13.2 g/dL Normal 12.0-15.0 [facility] Comment on above: Performed By: #### L 501.4021, L500.2500, L100.0100 ####[facility] [address] [place], [address] IG% 0.500 Normal 0.0-0.9 [facility] Comment on above: Result Comment: IG% - Immature Granulocytes (promyelocytes, myelocytes and metamyelocytes) > 1% indicates that a LEFT SHIFT is Present. Performed By: #### L 501.4021, L500.2500, L100.0100 ####[facility] [address] [place], [address] Lymphocytes/100 WBC (Bld) 14.3 % Low 19-41 [facility] Comment on above: Performed By: #### L 501.4021, L500.2500, L100.0100 ####[facility] [address] [place], [address] MCH (RBC) [Entitic mass] 31.1 pg Normal 27.0-32.0 [facility] Comment on above: Performed By: #### L 501.4021, L500.2500, L100.0100 ####[facility] [address] [place], [address] MCHC (RBC) [Mass/Vol] 34.2 g/dL Normal 32-36 [facility] Comment on above: Performed By: #### L 501.4021, L500.2500, L100.0100 ####[facility] [address] [place], [address] MCV (RBC) [Entitic vol] 90.8 fL Normal 81-99 [facility] Comment on above: Performed By: #### L 501.4021, L500.2500, L100.0100 ####[facility] [address] [place], [address] Monocytes/100 WBC (Bld) 6.8 % Normal 0-10 [facility] Comment on above: Performed By: #### L 501.4021, L500.2500, L100.0100 ####[facility] [address] [place], [address] Neutrophils/100 WBC (Bld) 76.9 % High 47-70 [facility] Comment on above: Performed By: #### L 501.4021, L500.2500, L100.0100 ####[facility] [address] [place], [address] Nucleated RBC (Bld) [#/Vol] 0 10*3/uL Normal 0-5 [facility] Comment on above: Performed By: #### L 501.4021, L500.2500, L100.0100 ####[facility] [address] [place], [address] Platelet mean volume (Bld) [Entitic vol] 10.5 fL Normal 6.2-12.0 [facility] Comment on above: Performed By: #### L 501.4021, L500.2500, L100.0100 ####[facility] [address] [place], [address] Platelets (Bld) [#/Vol] 204 10*3/uL Normal 150-450 [facility] Comment on above: Performed By: #### L 501.4021, L500.2500, L100.0100 ####[facility] [address] [place], [address] RBC (Bld) [#/Vol] 4.25 10*6/uL Normal 4.2-5.4 [facility] Comment on above: Performed By: #### L 501.4021, L500.2500, L100.0100 ####[facility] [address] [place], [address] RDW SD 40.3 fl Normal 35.1-43.9 [facility] Comment on above: Performed By: #### L 501.4021, L500.2500, L100.0100 ####[facility] [address] [place], [address] WBC (Bld) [#/Vol] 12.0 10*3/uL High 4.4-11.0 [facility] Comment on above: Performed By: #### L 501.4021, L500.2500, L100.0100 ####[facility] [address] [place], [address] CTA Chest W/WO Contraston CTA Chest W/WO Contrast [facility] Imaging Services [address] [place] [address] CTA Chest W/WO Contrast MR#: [id number] Acct: [id number] Name: SHANNAN DUARTE Rep #: [id number] : 1955 F 69 From: Aneesh Onofre MD PCP: Dr. Ginna Armstrong MD Status: [facility] ER Study: CTA Chest W/WO Contrast Date of Exam: 12/19/24 Exam# [id number] Ordering Dr: Gustavo Rader DO PROCEDURE: CTA CHEST W/WO CONTRAST 12/19/2024 REASON FOR EXAM: PE, SHORTNESS OF BREATH TECHNIQUE: CTA CHEST W/WO CONTRAST Multiplanar Sagittal and Coronal images were obtained. 3D post processing was performed CONTRAST: Isovue 370 VOLUME: 100 mL One or more dose reduction techniques were used (e.g., Automated exposure control, adjustment of the mA and/or kV according to patient size, use of iterative reconstruction technique). RADIATION DOSE SUMMARY: CTDlvol: 14.3 mGy DLP: 445 mGycm COMPARISON: CT chest 08/26/2024 FINDINGS: Hardware: None. Lymph nodes: No significant lymphadenopathy. Heart: There is bowing of the interventricular septum towards the left ventricle. RV/LV Diameter Ratio is approximately 2. Mild coronary calcifications. Thoracic Aorta: No thoracic aortic aneurysm or dissection. Calcified atherosclerosis. Pulmonary Vessels: There are pulmonary emboli bilaterally coming beginning at the right interlobar artery and distal aspect of the left main pulmonary artery, and extending into the lobar, segmental, and subsegmental branches in every lobe. The main pulmonary artery measures 2.9 cm in diameter, at the upper limit of normal. Lungs and Airways: Central airways are predominantly clear. Calcified granuloma in the right lower lobe. No focal consolidation. Pleura: No effusion. Upper Abdomen: There is reflux of contrast into the IVC and hepatic veins. Bones: Unremarkable CT/CTA Chest W/WO Contrast IMPRESSION: 1. Extensive bilateral pulmonary emboli, with the most proximal emboli located at the right interlobar artery and distal left main pulmonary artery. 2. Findings which are worrisome for right heart strain including bowing of the interventricular septum and reflux of contrast into the hepatic veins. Malone Alert: Pulmonary emboli with suggestion of right heart strain The critical information above was relayed directly by me by telephone to Gustavo Rader on 12/19/2024 at 9:13 pm with readback verification. Reading Location: [id number] CC: Dr. Gustavo Rader DO; Dr. Ginna Armstrong MD Parcel Carrier: Signed Normal [facility] Carbon dioxide, total [Moles /volume] in Central venous bloodOrdered By: Gustavo Rader on 12-19-2024 CO2 [Moles/Vol] 23.7 mmol/L 21.0-32.0 [facility] Chest 1 View (Portable)on Chest 1 View (Portable) [facility] Imaging Services [address] [place] [address] Chest 1 View (Portable) MR#: [id number] Acct: [id number] Name: SHANNAN DUARTE Rep #: [id number] : 1955 F 69 From: Aneesh Onofre MD PCP: Dr. Ginna Armstrong MD Status: REG ER Study: Chest 1 View (Portable) Date of Exam: 12/19/24 Exam# [id number] Ordering Dr: Gustavo Rader DO PROCEDURE: CHEST 1 VIEW (PORTABLE) 12/19/2024 REASON FOR EXAM: CHEST PAIN TECHNIQUE: Frontal view of the chest. COMPARISON: CT chest on 08/26/2024 FINDINGS: Hardware: None Heart: Not significantly enlarged. Aortic atherosclerosis. Lungs: No focal consolidation or pleural effusion. Eventration of the right hemidiaphragm. Bones: Degenerative changes are identified within the thoracic spine. RAD/Chest 1 View (Portable) IMPRESSION: No acute cardiopulmonary abnormality. Reading Location: [id number] CC: Dr. Gustavo Rader DO; Dr. Ginna Armstrong MD Parcel Carrier: Signed Normal [facility] Chloride assayOrdered By: Sanya Rader on 12-19-2024 Chloride [Moles/Vol] 100 mmol/L 98-108 [facility] Emergency Department Summary on 12-19-2024 Emergency Department Summary [facility] Medical Records Department [address] [place] [address] Emergency Department Summary 12/19/24 MR#: [id number] Acct: [id number] Name: SHANNAN DUARTE Rep #: [id number] : 1955 69 From: Gustavo Rader DO PCP: Dr. Ginna Armstrong MD Status:REG ER Location: ED HPI History of Present Illness Chief Complaint: Palpitations Narrative Narrative: Chief complaint and HPI: Palpitations. 69-year-old female with past medical history of HLD presents for evaluation of palpitations and exertional shortness of breath. Patient states for the past 3 days she has been having progressively worsening exertional shortness of breath. Denies any orthopnea. Denies any bilateral lower extremity swelling or pain. Patient denies any chest pain but states with her exertional dyspnea she develops palpitations. States she recently had surgery approximately 1 month ago on her teeth. Not on blood thinners. She denies any fever, chills, URI symptoms, cough, abdominal pain, nausea, vomiting. Review of systems: See HPI Medications: As listed on the chart Allergies: As listed on the chart PFSH: Per chart Vital signs: As listed on the chart. Reviewed. Physical exam: Gen: A O x3, NAD Head: Normocephalic, atraumatic Eyes: No sclera icterus, conjunctiva clear ENT: Moist mucous membranes Neck: Trachea midline, No JVD CV: Tachycardic, regular rhythm, no murmurs, no peripheral edema Resp: Lungs CTA BL, no w/r/c, on 2 L nasal cannula GI: Abd soft, non-distended, non-tender, no r/r/g Musc: Full ROM, no deformity Skin: Warm, dry Neuro: Alert, oriented, grossly intact, sensation intact Psych: Cooperative, appropriate mood and affect PFSH PFSH Medical History Hyperlipemia Hx of smoking Dental implant pain Home Medications ???Medication ???Instructions ???Recorded ???Last Taken ???Type atorvastatin 10 mg tablet 10 mg PO QHS 12/19/24 Unknown Hist ory fenofibrate nanocrystallized 145 145 mg PO DAILY 12/19/24 Unknown H istory mg tablet Held on 12/19/24. Instructions: stop taking d/t knee pain multivitamin .ROUTE 12/19/24 Unknown History Allergy/AdvReac Type Severity Reaction Status Date / Time No Known Allergies Allergy Verified 12/19/24 19:27 Surgical History H/O: hysterectomy Hx of breast reduction, elective Social History Smoking Status: Heavy Smoker (>10/day) EXAM Physical Exam Const Vital Signs: 12/19/24 19:27 12/19/24 19:28 12/19/24 19:33 Temperature 97 F L Temperature Source Temporal Pulse Rate 107 H Respiratory Rate 16 Respiratory Effort Blood Pressure 120/79 Blood Pressure Mean 92 Pulse Ox 95 87 95 Oxygen Delivery Method Nasal Cannula Room Air Oxygen Flow Rate (L/min) 2 2 12/19/24 20:13 12/19/24 20:27 12/19/24 20:44 Temperature Temperature Source Pulse Rate 91 Respiratory Rate 19 H Respiratory Effort Short of Breath Blood Pressure 122/84 H Blood Pressure Mean 96 Pulse Ox 85 94 Oxygen Delivery Method Room Air Nasal Cannula Oxygen Flow Rate (L/min) 2 12/19/24 20:49 12/19/24 21:50 12/19/24 22:00 Temperature 98.1 F Temperature Source Pulse Rate 88 82 79 Respiratory Rate 24 H 19 H 18 Respiratory Effort Blood Pressure 102/69 110/73 123/74 H Blood Pressure Mean 80 85 90 Pulse Ox 98 99 95 Oxygen Delivery Method Nasal Cannula Nasal Cannula Oxygen Flow Rate (L/min) 2 2 MDM MDM MDM Narrative Medical decision making narrative: 69-year-old female with past medical history of HLD presents for evaluation of palpitations and exertional shortness of breath. Associated symptoms are palpitations. Patient recently had surgery approximately 1 month ago on her teeth. Patient was found to be hypoxic at 87% on room air. Placed on 2 L nasal cannula with improvement in oxygen saturations. Otherwise vitals are unremarkable except for mild tachycardia. Differential diagnosis includes but is not limited to PE, ACS, pneumonia, CHF, electrolyte abnormality, MILTON, thyroid disease. Patient currently not having any chest pain. NS bolus ordered with CTA chest given high risk for PE. CBC with leukocytosis of 12. No anemia. Platelets unremarkable. BMP relatively unremarkable except for hyperglycemia. Magnesium level unremarkable. TSH unremarkable. Troponin elevated at 55. Although patient is not having any chest pain aspirin ordered. BNP elevated at 2686. CT chest positive for PE. Patient has extensive bilateral pulmonary emboli with the most proximal emboli located at the right interlobar artery and distal left main pulmonary artery. Finding (more content not included)... Normal [facility] Eosinophil percentageOrdered By: Gustavo Rader on 12-19-2024 Eosinophils/100 WBC (Bld) 1.1 % 0-5 [facility] Erythrocyte distribution wid th ratioOrdered By: Gustavo Dior on 12-19-2024 Erythrocyte distribution width (RBC) [Ratio] 12.2 % 11.6-14.6 [facility] Erythrocyte distribution wid th standard deviationOrdered By: Gustavo Sifuentes on 12-19-2024 Erythrocyte distribution width (RBC) [Ratio] 40.3 fl 35.1-43.9 [facility] Glomerular filtration rate ( GFR) estimation/1.73 sq m using serum, plasma, or whole bOrdered By: Gustavo Rader on 12-19-2024 GFR/1.73 sq M.predicted among non-blacks MDRD (S/P/Bld) [Vol rate/Area] 73 mL/min/{1.73_m2} >60 [facility] Comment on above: mL/min/1.73m2 CKD-EP I Creatinine Equation (2020) HISTORY PHYSICALon HISTORY PHYSICAL HNO ID: [id number] Author: GLO STORY MD Service: Critical Care Author Type: Physician Type: H&P Filed: 12/20/2024 06:30 Note Text: [facility] STAFF PHYSICIAN NOTE OF PERSONAL INVOLVEMENT IN CARE I have reviewed the documentation by the resident/ SUDHEER and I personally participated in the vera components. I have discussed the case and management of the patient's care. The following comments revise or confirm relevant vera components of the note. IMPRESSION/PLAN: 69 yof p/w PE HIR PE, R main PA, heparin drip, Echo, DVT US, discuss w/ IR in the morning and then transition AC Portions of this note have been copied forward from the previous day's documentation. This patient has a high probability of sudden, clinically significant deterioration, which requires the highest level of physician preparedness to intervene urgently. I managed/supervised life or organ supporting interventions that required frequent physician assessment. I devoted my full attention to the direct care of this patient for the amount of time indicated below. Time I spent with family or surrogate(s) is included only if the patient was incapable of providing the necessary information or participating in medical decision making. Time devoted to teaching is not included. Critical Care Documentation: The patient has the following organ/system impairment(s): Pulmonary embolism Patient/Family/Staff Updated Time spent providing critical care services: 35 minutes excluding procedures. SIGNATURE: Glo Story MD [facility]:[phone] DATE of SERVICE: December 20, 2024 MICU HANDP PATIENT NAME: Shannan Duarte REASON FOR ADMISSION: PE DATE: December 19, 2024 Subjective HPI Ms. Shannan Duarte is a 69 year old female with PMH: - HLD on atorvastatin - Recent surgery with teeth implantation on 11/29 Patient presented to [place] ED on 12/19/24 with diagnosis of bilateral PE following mouth surgery. Transferred to [facility] MICU 12/20 for possible thrombectomy. Work-up in the ED showed leukocytosis of 12, troponin elevated at 55, BNP elevated at 2686. EKG with sinus tachycardia with rate of [address] changes. She did desaturate to 87 on room air, therefore she was placed on 2L NC. Hypokalemia at 3.5 creatinine 0.87 mag 1.8. Chest x-ray was unremarkable for pulmonary edema, consolidation, chest CTA showed extensive bilateral PE with the most proximal emboli located at the right interlobular artery and distal left main pulmonary artery, extending into the lobar, segmental, and subsegmental branches in every lobe. The main pulmonary artery measures 2.9 cm in diameter. Signs of right heart strain with bowing of the IV septum and reflux of the contrast into the hepatic veins; RV/LV ratio 2. Patient was started on heparin drip with bolus. On reevaluation the patient's tachycardia had improved, she was transferred to [facility] MICU for possible thrombectomy. No DVT ultrasound was available at [place]. Upon my assessment, patient is saturating well on 2L NC, hemodynamically stable without tachycardia. The patient states that for the past 2 to 3 days she has been experiencing shortness of breath and chest pain with exertion which has been worsening. The day prior to arrival she also experienced lightheadedness/dizzin ess and palpitations with her dyspnea on exertion. She also states that for the past month she has been experiencing left lower extremity pain which she attributed to knee pain initially, for which she was given a prednisone burst from PCP. This did not relieve her intermittent knee pain. She does report it is now cramping in nature. She denies LE swelling, redness, fever, chills, cough, sputum production, h/o [place], HF, HTN, prior VTE, prior malignancy, family h/o VTE. No n/v/c/d, melena, hematochezia. Reports recent decreased PO intake due to mouth surgery. States she has been active since her surgery. Review of Systems Constitutional: Negative for chills, diaphoresis and fever. Respiratory: Positive for shortness of breath. Cardiovascular: Positive for chest pain and palpitations. Negative for leg swelling. All other systems reviewed and are negative. No past medical history on file. No past surgical history on file. No family history on file. No current facility-administered medications on file prior to encounter. No current outpatient medications on file prior to encounter. Objective OBJECTIVE BP 134/108 Pulse 87 Resp 18 Ht 172.7 cm (5' 8) Wt 91.5 kg (201 lb 11.5 oz) SpO2 97% BMI 30.67 kg/m? No data recorded. Body mass index is 30.67 kg/m?., No results found for: HBA1C Intake/Output Summary (Last 24 hours) at 12/20/2024 0157 Last data filed at 12/20/2024 0145 Gross per 24 hour Intake -- Output 200 ml Net -200 ml Physical Exam Vitals reviewed. Constitutional: General: She is not in acute distress. Appearance: Normal appearance. She is not ill-appearin (more content not included)... Normal [facility] Hematocrit Auto (Bld) [Volum e fraction]Ordered By: [facility] on 12-19-2024 Hematocrit (Bld) [Volume fraction] 38.6 % 37-47 [facility] Hemoglobin measurementOrdere d By: [facility] on 12-19-2024 Hemoglobin (Bld) [Mass/Vol] 13.2 g/dL 12.0-15.0 [facility] Immature granulocytes/100 WB C Auto (Bld)Ordered By: [facility] on 12-19-2024 Immature granulocytes/100 WBC (Bld) 0.500 % 0.0-0.9 [facility] Comment on above: IG% - Immature Granu locytes (promyelocytes, myelocytes and metamyelocytes) > 1% indicates that a LEFT SHIFT is Present. International normalized rat io (INR) calculationOrdered By: [facility] on 12-19-2024 INR Coag (Bld) [Relative time] 1.1 {INR} [facility] L499.0042on 12-19-2024 Trop T High Sen 48 ng/L High <=14 [facility] Comment on above: Performed By: #### L 499.0042 ####[facility] [address] [place], [place], [id number] L499.0043on 12-19-2024 Trop T High Sen Normal <=14 [facility] Comment on above: Result Comment: Canc ellsuzie via OM: Ordered Performed By: #### M 100.2900, M100.4001, M100.2000, L200.4175, L200.0400 #### [facility] [address] [place], [address] L501.4021on 12-19-2024 Trop T High Sen 55 ng/L Invalid Interpretation Code <=14 [facility] Comment on above: Result Comment: Crit ical Result(s) Called HORR at: 2037 by: LAWRENCE??Results read back by same. Performed By: #### L 501.4021, L500.2500, L100.0100 ####[facility] [address] [place], [address] L503.7505on 12-19-2024 Natriuretic peptide B (Bld) [Mass/Vol] 2686 pg/mL High <=900 [facility] Comment on above: Result Comment: Hear t Failure Unlikely: < 300 pg/mL Heart Failure Likely < 50 Years: > 450 pg/mL 50-75 Years: > 900 pg/mL >75 Years: > 1800 pg/mL Performed By: #### L 503.7505, L501.5200, L501.9520 ####[facility] [address] [place], [address] MCV (mean corpuscular volume ) determinationOrdered By: Gustavo Rader on 12-19-2024 MCV (RBC) [Entitic vol] 90.8 fL 81-99 [facility] Magnesiumon 12-19-2024 Magnesium [Mass/Vol] 1.8 mg/dL Normal 1.5-2.2 [facility] Comment on above: Performed By: #### L 503.7505, L501.5200, L501.9520 ####[facility] [address] [place], [address] Magnesium measurement (mass/ volume)Ordered By: Gustavo Rader on 12-19-2024 Magnesium (Unsp spec) [Mass/Vol] 1.8 mg/dL 1.5-2.2 [facility] Mean corpuscular hemoglobin (MCH) determinationOrdered By: Gustavo Rader on 12-19-2024 MCH (RBC) [Entitic mass] 31.1 pg 27.0-32.0 [facility] Mean corpuscular hemoglobin concentration (MCHC) determinationOrdered By: Gustavo Rader on 12-19-2024 MCHC (RBC) [Mass/Vol] 34.2 g/dL 32-36 [facility] Mean platelet volume determi nationOrdered By: Gustavo Rader on 12-19-2024 Platelet mean volume (Bld) [Entitic vol] 10.5 fL 6.2-12.0 [facility] Monocyte percentageOrdered B y: Gustavo Rader on 12-19-2024 Monocytes/100 WBC (Bld) 6.8 % 0-10 [facility] Natriuretic peptide.B prohor joe N-Terminal [Mass/volume] in Serum or PlasmaOrdered By: Gustavo Rader on 12-19-2024 Natriuretic peptide.B prohormone N-Terminal [Mass/Vol] 2686 pg/mL High <900 [facility] Comment on above: Heart Failure Unlike ly: < 300 pg/mLHeart Failure Likely< 50 Years: > 450 pg/mL50-75 Years: > 900 pg/mL>75 Years: > 1800 pg/mL Neutrophil percentageOrdered By: Terryville Dior on 12-19-2024 Neutrophils/100 WBC (Bld) 76.9 % High 47-70 [facility] Nucleated red blood cell per centageOrdered By: [facility] 12-[facility]2024 Nucleated RBC/100 WBC (Bld) [Ratio] 0 % 0-5 [facility] Partial Thromboplast Timeon 12-19-2024 aPTT Coag (Bld) [Time] 24.9 s Normal 24.1-36.[address] [facility] Comment on above: Performed By: #### L 300.3900, L300.4310 ####[facility] [address] [place], [address] Platelet countOrdered By: Sanya Rader on 12-19-2024 Platelets (Bld) [#/Vol] 204 10*3/uL 150-450 [facility] Potassium measurement (mass/ volume)Ordered By: Gustavo Rader on 12-19-2024 Potassium (Unsp spec) [Mass/Vol] 3.5 mmol/L 3.3-5.1 [facility] Prothrombin Time w/INRon INR Coag (PPP) [Relative time] 1.1 {INR} Normal [facility] Comment on above: Performed By: #### L 300.3900, L300.4310 ####[facility] [address] [place], [address] PT Coag (PPP) [Time] 13.9 s Normal 11.7-14.9 [facility] Comment on above: Performed By: #### L 300.3900, L300.4310 ####[facility] [address] [place], [address] Prothrombin timeOrdered By: Gustavo Rader on 12-19-2024 PT Coag (PPP) [Time] 13.9 s 11.7-14.9 [facility] RBC Auto (Bld) [#/Vol]Ordere d By: Gustavo Rader on 12-19-2024 RBC (Bld) [#/Vol] 4.25 10*6/uL 4.2-5.4 [facility] Serum creatinine measurement (mass/volume)Ordered By: Gustavo Rader on 12-19-2024 Creatinine [Mass/Vol] 0.87 mg/dL 0.70-1.20 [facility] Serum glucose measurement (m ass/volume)Ordered By: Gustavo Rader on 12-19-2024 Glucose [Mass/Vol] 142 mg/dL High 70-99 [facility] Serum or plasma calcium ayana urement (mass/volume)Ordered By: Gustavo Sifuentes on 12-19-2024 Calcium [Mass/Vol] 9.5 mg/dL 7.6-11.0 [facility] Serum or plasma urea nitroge n measurement (mass/volume)Ordered By: Gustavo Rader on 12-19-2024 Urea nitrogen [Mass/Vol] 14 mg/dL 4-19 [facility] Sodium levelOrdered By: Yusuf Rader on 12-19-2024 Sodium [Moles/Vol] 138 mmol/L 133-145 [facility] TSH DL <= 0.005 mIU/L QnOrde red By: Gustavo Rader on 12-19-2024 TSH Qn 2.930 uIU/mL 0.300-4.200 [facility] Thyroid Stim Hormone (TSH)on 12-19-2024 TSH 2.930 uIU/mL Normal 0.300-4.200 [facility] Comment on above: Performed By: #### L 503.7505, L501.5200, L501.9520 ####[facility] [address] [place], [address] Troponin T.cardiac [Mass/vol ume] in Serum or Plasma by High sensitivity methodOrdered By: Gustavo Rader on 12-19-2024 Troponin T.cardiac High sensitivity method [Mass/Vol] 48 ng/L High <14 [facility] Troponin T.cardiac High sensitivity method [Mass/Vol] 55 ng/L High <14 [facility] Comment on above: Critical Result(s) Otto TYSON at: 2037 by: LAWRENCE Results read back by same. White blood cell (WBC) count Ordered By: Gustavo Rader on 12-19-2024 WBC (Bld) [#/Vol] 12.0 10*3/uL High 4.4-11.0 [facility] Knee 4 or More Viewson 11-24 Knee 4 or More Views [facility] [address] [place] [address] Knee 4 or More Views MR#: [id number] Acct: [id number] Name: SHANNAN DUARTE Rep #: [id number] : 1955 F 69 From: Primitivo Melgar MD PCP: Dr. Ginna Armstrong MD Status: REG CLI Study: Knee 4 or More Views Date of Exam: 11/24/24 Exam# [id number] Ordering Dr: Ginna Armstrong MD EXAM: XR Left Knee Complete, 4 or More Views CLINICAL INDICATION: PAIN IN KNEE TECHNIQUE: Four or more views of the left knee. COMPARISON: No relevant prior studies available. FINDINGS: BONES/JOINTS: Unremarkable. No acute fracture. No dislocation. SOFT TISSUES: Unremarkable. RAD/Knee 4 or More Views IMPRESSION: No acute fracture. Reading Location: [id number] CC: Dr. Ginna Armstrong MD Parcel Carrier: Signed Normal [facility] Breast imaging reportOrdered By: Christina Jason on 09-13-2024 Study report [facility] [address] [place] [id number] SCRN MAMM (CAD)W/AMISHA BILAT MR#: [id number] Acct: [id number] Name: SHANNAN DUARTE Rep #: [id number] : 1955 F 69 From: Pancho Jason DO PCP: Dr. Ginna Armstrong MD Status: REG CLI Study:SCRN MAMM (CAD)W/AMISHA BILAT Date of Exa m: 09/13/24 Exam# [id number] Ordering Dr: Bhupendra Armstrong MD EXAM: SCRN MAMM (CAD)W/AMISHA BILAT DATE: 09/13/2024 CLINICAL HISTORY: F, Age 69 y/o , SCREENING The patient has had bilateral breast reduction surgery. BREAST CANCER RISK ASSESSMENT: Does not appear to have been calculated. TECHNIQUE: Bilateral screening digital breast tomosynthesis with 2D and 3D images. Computeraided detection. COMPARISON: Prior exam(s) dated 09/13/1999 and 09/11/2022. FINDINGS: TISSUE DENSITY: The breast tissue is almost entirely fatty. Bilateral Breast Mammographic Findings: No suspicious masses or suspicious microcalcifications are seen in either breast. Stable architectural distortion is seen in both breasts from prior breast reduction surgery. Benign-appearing round microcalcifications and macrocalcifications are seen. There is no mammographic abnormality identified in either breast to suggest malignancy. BI/SCRN MAMM (CAD)W/AMISHA BILAT IMPRESSION: Right Breast: BIRADS 2 BENIGN FINDING. Left Breast: BIRADS 2 BENIGN FINDING. OVERALL FINAL ASSESSMENT: BIRADS 2 BENIGN FINDING RECOMMENDATION: Routine annual follow-up in 1 Year A letter with findings and recommendations will be mailed to the patient. Reading Location: [id number] CC: Dr. Ginna Armstrong MD ~ Parcel Carrier: Signed [facility] SCRN MAMM (CAD)W/AMISHA BILATo n 09-13-2024 SCRN MAMM (CAD)W/AMISHA BILAT [facility] [address] [place] [address] [id number] SCRN MAMM (CAD)W/AMISHA BILAT MR#: [id number] Acct: [id number] Name: SHANNAN DUARTE Rep #: [id number] : 1955 F 69 From: Christina Carrera PCP: Dr. Ginna Armstrong MD Status: [facility] Study: SCRN MAMM (CAD)W/AMISHA BILAT Date of Exam: 08/20 12/13 Exam# [id number] Ordering Dr: Ginna Armstrong MD EXAM: SCRN MAMM (CAD)W/AMISHA BILAT DATE: 09/13/2024 CLINICAL HISTORY: F, Age 69 y/o , SCREENING The patient has had bilateral breast reduction surgery. BREAST CANCER RISK ASSESSMENT: Does not appear to have been calculated. TECHNIQUE: Bilateral screening digital breast tomosynthesis with 2D and 3D images. Computer aided detection. COMPARISON: Prior exam(s) dated 09/13/1999 and 09/11/2022. FINDINGS: TISSUE DENSITY: The breast tissue is almost entirely fatty. Bilateral Breast Mammographic Findings: No suspicious masses or suspicious microcalcifications are seen in either breast. Stable architectural distortion is seen in both breasts from prior breast reduction surgery. Benign-appearing round microcalcifications and macrocalcifications are seen. There is no mammographic abnormality identified in either breast to suggest malignancy. BI/SCRN MAMM (CAD)W/AMISHA BILAT IMPRESSION: Right Breast: BIRADS 2 BENIGN FINDING. Left Breast: BIRADS 2 BENIGN FINDING. OVERALL FINAL ASSESSMENT: BIRADS 2 BENIGN FINDING RECOMMENDATION: Routine annual follow-up in 1 Year A letter with findings and recommendations will be mailed to the patient. Reading Location: [id number] CC: Dr. Ginna Armstrong MD Parcel Carrier: Signed Normal [facility] Low Dose CT Lung Screeningon 08-26-[address] Lung Screening [facility] [address] [place] [id number] Lung Screening MR#: [id number] Acct: [id number] Name: SHANNAN DUARTE Rep #: [id number] : 1955 F 69 From: Joselito Carrera PCP: Dr. Ginna Armstrong MD Status: [facility] Study: Low Dose CT Lung Screening Date of Exam: 08/26 Exam# [id number] Ordering Dr: Ginna Armstrong MD PROCEDURE: LOW DOSE CT LUNG SCREENING REASON FOR EXAM: Personal history of nicotine dependence TECHNIQUE: Low Dose CT Lung Screening without contrast COMPARISON: None. FINDINGS: Heart size is within normal limits. No significant pericardial effusion. Mild LAD coronary artery calcifications. Normal caliber thoracic aorta and pulmonary arteries. No bulky adenopathy. No suspicious findings in the visualized upper abdomen. Superficial soft tissues are within normal limits. Central airways are patent. No acute infiltrates, pleural effusion or pneumothorax. Mostly calcified 5 mm nodule in the posterior right lower lobe. No other nodules or masses. No acute osseous abnormality. CT/Low Dose CT Lung Screening IMPRESSION: 1. BASED ON THE ACR LUNG RADS FOR THE MOST SUSPICIOUS NODULE (IF ANY) DESCRIBED IN THIS REPORT, THE OVERALL LUNG RADS SCORE IS 1. 2. SMOKING CESSATION COUNSELING IS RECOMMENDED IF THE PATIENT IS STILL SMOKING. 3. Coronary artery calcifications. One or more dose reduction techniques were used (e.g., Automated exposure control, adjustment of the mA and/or kV according to patient size, use of iterative reconstruction technique). The following information is provided for reference:Lung-RADS 2022 Assessment Categories. Additional information involving Lung-RADS is available at www.acr.org. 0-INCOMPLETE 1-NEGATIVE:No nodules or definitely benign nodules. Complete, central, popcorn, or centric ring calcifications OR fat containing 2-BENIGN APPEARANCE (based on imaging features or indolent behavior). Juxtapleural nodule: < 10mm AND solid; smooth margins; oval, lentiform, or triangular shape Solid nodule: <6mm at baseline or new< 4mm Part solid Nodule: < 6mm total mean diameter at baseline Nonsolid nodule:(GGN) < 30mm OR >=30mm stable or slowly growing Airway nodule, subsegmental at baseline, new, or stable Category 3 nodule stable or decreased in size at 6-month follow-up CT or Category 3 or 4A nodules that resolve on follow-up OR category 4B findings proven to be benign following diagnotic work up. 3 - Probably Benign (Based on imaging features or behavior) Solid Nodule: >= 6 to <8mm at baseline OR new 4 to <6mm Part-solid nodule: >= 6mm toal mean diam. with solid component <6mm at baseline OR new < 6mm total mean diam. Non-solid nodule: GGN >= 30mm at baseline or new Atypical pulmonary cyst: Growing cystic component (mean diam.) of thick-walled cyst Category 4A nodule stable or decreased in size at 3-month follow-up CT (excl.airway). 4A - Suspicious Solid nodule: >=8 to < 15mm at baseline OR growing < 8mm OR new 6 to < 8mm Part solid nodule: >= 6mm total mean diam. w/ solid component >=6mm to < 8mm at baseline OR new or growing < 4mm solid component Airway nodule, segmental or more proximal at baseline or new Atypical pulmonary cyst: Thick-walled OR multilocular at baseline OR becomes multilocular 4B - Very Suspicious Airway nodule, segmental or more proximal, and stable or growing Solid nodule: >= 15mm at baseline OR new or growing >= 8mm Part solid nodule: Solid component >= 8mm OR new or growing >= 4mm solid component Atypical pulmonary cyst: Thick-walled with growing wall thickness/nodularity OR Growing multilocular (mean diam.) OR Multilocular with increased loculation or new/increased opacity Slow-growing solid or part solid nodule w/ growth over multiple screening exams 4X - Very Suspicious Category 3 or 4 nodules with additional features that increase the suspicion for lung cancer. S - Clinically Significant or potentially significant findings (non-lung cancer) Reading [facility] CC: Dr. Ginna Armstrong MD Parcel Carrier: Signed Normal [facility] Absolute lymphocyte countOrd ered By: Ginna Armstrong on 08-16-2024 Lymphocytes Auto (Unsp spec) [#/Vol] 1.88 10*3/uL 0.83-4.51 [facility] Absolute neutrophil countOrd ered By: Ginna Armstrong on 08-16-2024 Neutrophils (Bld) [#/Vol] 3.1 10*3/uL 2.0-7.7 [facility] Automated lymphocyte count a s percentage of total leukocytesOrdered By: Ginna Armstrong on 08-16-2024 Lymphocytes/100 WBC Auto (Unsp spec) 33.5 % 19- [facility] BUN/creatinine ratioOrdered By: Ginna Armstrong on 08-16-2024 Urea nitrogen/Creatinine [Mass ratio] 15.3 mg/mg 10-20 [facility] Basophil percentageOrdered B y: Ginna Armstrong on 08-16-2024 Basophils/100 WBC (Bld) 0.9 % 0-1 [facility] Bilirubin, totalOrdered By: Ginna Armstrong on 08-16-2024 Bilirubin [Mass/Vol] 0.35 mg/dL 0.00-1.30 [facility] CBC W/Diff, Automatedon 07-23 Absolute Lymph 1.88 X10 3/uL Normal 0.83-4.51 [facility] Comment on above: Performed By: #### L 100.0100, L500.4100, L500.4050, L501.9985 ####[facility] [address] [place], [address] Absolute Neut 3.1 X10 3/uL Normal 2.0-7.7 [facility] Comment on above: Performed By: #### L 100.0100, L500.4100, L500.4050, L501.9985 ####[facility] [address] [place], [address] Basophils/100 WBC (Bld) 0.9 % Normal 0-1 [facility] Comment on above: Performed By: #### L 100.0100, L500.4100, L500.4050, L501.9985 ####[facility] [address] [place], [address] Eosinophils/100 WBC (Bld) 3.2 % Normal 0-5 [facility] Comment on above: Performed By: #### L 100.0100, L500.4100, L500.4050, L501.9985 ####[facility] [address] [place], [address] Erythrocyte distribution width (RBC) [Ratio] 12.8 % Normal 11.6-14.6 [facility] Comment on above: Performed By: #### L 100.0100, L500.4100, L500.4050, L501.9985 ####[facility] [address] [place], [address] Hematocrit (Bld) [Volume fraction] 38.7 % Normal 37-47 [facility] Comment on above: Performed By: #### L 100.0100, L500.4100, L500.4050, L501.9985 ####[facility] [address] [place], [address] Hemoglobin (Bld) [Mass/Vol] 12.7 g/dL Normal 12.0-15.0 [facility] Comment on above: Performed By: #### L 100.0100, L500.4100, L500.4050, L501.9985 ####[facility] [address] [place], [address] IG% 0.400 Normal 0.0-0.9 [facility] Comment on above: Result Comment: IG% - Immature Granulocytes (promyelocytes, myelocytes and metamyelocytes) > 1% indicates that a LEFT SHIFT is Present. Performed By: #### L 100.0100, L500.4100, L500.4050, L501.9985 ####[facility] [address] [place], [address] Lymphocytes/100 WBC (Bld) 33.5 % Normal 19-41 [facility] Comment on above: Performed By: #### L 100.0100, L500.4100, L500.4050, L501.9985 ####[facility] [address] [place], [address] MCH (RBC) [Entitic mass] 31.0 pg Normal 27.0-32.0 [facility] Comment on above: Performed By: #### L 100.0100, L500.4100, L500.4050, L501.9985 ####[facility] [address] [place], [address] MCHC (RBC) [Mass/Vol] 32.8 g/dL Normal 32-36 [facility] Comment on above: Performed By: #### L 100.0100, L500.4100, L500.4050, L501.9985 ####[facility] [address] [place], [address] MCV (RBC) [Entitic vol] 94.4 fL Normal 81-99 [facility] Comment on above: Performed By: #### L 100.0100, L500.4100, L500.4050, L501.9985 ####[facility] [address] [place], [address] Monocytes/100 WBC (Bld) 6.8 % Normal 0-10 [facility] Comment on above: Performed By: #### L 100.0100, L500.4100, L500.4050, L501.9985 ####[facility] [address] [place], [address] Neutrophils/100 WBC (Bld) 55.2 % Normal 47-70 [facility] Comment on above: Performed By: #### L 100.0100, L500.4100, L500.4050, L501.9985 ####[facility] [address] [place], [address] Nucleated RBC (Bld) [#/Vol] 0 10*3/uL Normal 0-5 [facility] Comment on above: Performed By: #### L 100.0100, L500.4100, L500.4050, L501.9985 ####[facility] [address] [place], [address] Platelet mean volume (Bld) [Entitic vol] 10.1 fL Normal 6.2-12.0 [facility] Comment on above: Performed By: #### L 100.0100, L500.4100, L500.4050, L501.9985 ####[facility] [address] [place], [address] Platelets (Bld) [#/Vol] 206 10*3/uL Normal 150-450 [facility] Comment on above: Performed By: #### L 100.0100, L500.4100, L500.4050, L501.9985 ####[facility] [address] [place], [address] RBC (Bld) [#/Vol] 4.10 10*6/uL Low 4.2-5.4 [facility] Comment on above: Performed By: #### L 100.0100, L500.4100, L500.4050, L501.9985 ####[facility] [address] [place], [address] RDW SD 44.0 fl High 35.1-43.9 [facility] Comment on above: Performed By: #### L 100.0100, L500.4100, L500.4050, L501.9985 ####[facility] [address] [place], [address] WBC (Bld) [#/Vol] 5.6 10*3/uL Normal 4.4-11.0 [facility] Comment on above: Performed By: #### L 100.0100, L500.4100, L500.4050, L501.9985 ####[facility] [address] [place], [address] Calculated very low density lipoprotein (VLDL) cholesterol measurementOrdered By: Ginna Armstrong on 08-16-2024 Calculated very low density lipoprotein (VLDL) cholesterol measurement 55 mg/dL High 5-40 [facility] VLDL Cholesterol 55 mg/dL High 5-40 [facility] Carbon dioxide measurementOr dered By: Ginna Armstrong on 08-16-2024 CO2 [Moles/Vol] 26.3 mmol/L 22.0-29.0 [facility] Chloride measurementOrdered By: Ginna Armstrong on 08-16-2024 Chloride [Moles/Vol] 105 mmol/L 96-108 [facility] Cholesterol/HDL ratioOrdered By: Ginna Armstrong on 08-16-2024 Cholesterol.total/Mira sterol in HDL [Mass ratio] 2.99 {ratio} [facility] Comprehensive Metabolic Prof ilon 08-16-2024 Albumin [Mass/Vol] 4.2 g/dL Normal 3.4-4.8 [facility] Comment on above: Performed By: #### L 100.0100, L500.4100, L500.4050, L501.9985 ####[facility] [address] [place], [address] Albumin/Globulin [Mass ratio] 1.7 {ratio} Normal 0.9-2.4 [facility] Comment on above: Performed By: #### L 100.0100, L500.4100, L500.4050, L501.9985 ####[facility] [address] [place], [address] ALK PHOS 63 U/L Normal 35-104 [facility] Comment on above: Performed By: #### L 100.0100, L500.4100, L500.4050, L501.9985 ####[facility] [address] [place], [address] ALT [Catalytic activity/Vol] 21 U/L Normal <=34 [facility] Comment on above: Performed By: #### L 100.0100, L500.4100, L500.4050, L501.9985 ####[facility] [address] [place], [address] Anion gap [Moles/Vol] 11 mmol/L Normal 5-15 [facility] Comment on above: Performed By: #### L 100.0100, L500.4100, L500.4050, L501.9985 ####[facility] [address] [place], [address] AST [Catalytic activity/Vol] 18 U/L Normal <=31 [facility] Comment on above: Performed By: #### L 100.0100, L500.4100, L500.4050, L501.9985 ####[facility] [address] [place], [address] Bilirubin [Mass/Vol] 0.35 mg/dL Normal 0.00-1.30 [facility] Comment on above: Performed By: #### L 100.0100, L500.4100, L500.4050, L501.9985 ####[facility] [address] [place], [address] BUN/CRE 15.3 RATIO Normal 10-20 [facility] Comment on above: Performed By: #### L 100.0100, L500.4100, L500.4050, L501.9985 ####[facility] [address] [place], [address] Calcium [Mass/Vol] 8.8 mg/dL Normal 7.6-11.0 [facility] Comment on above: Performed By: #### L 100.0100, L500.4100, L500.4050, L501.9985 ####[facility] [address] [place], [address] Chloride [Moles/Vol] 105 mmol/L Normal 96-108 [facility] Comment on above: Performed By: #### L 100.0100, L500.4100, L500.4050, L501.9985 ####[facility] [address] [place], [address] CO2 [Moles/Vol] 26.3 mmol/L Normal 22.0-29.0 [facility] Comment on above: Performed By: #### L 100.0100, L500.4100, L500.4050, L501.9985 ####[facility] [address] [place], [address] Creatinine [Mass/Vol] 0.8 mg/dL Normal 0.6-1.0 [facility] Comment on above: Performed By: #### L 100.0100, L500.4100, L500.4050, L501.9985 ####[facility] [address] [place], [address] GFR/1.73 sq M.predicted among non-blacks MDRD (S/P/Bld) [Vol rate/Area] 80 mL/min/{1.73_m2} Normal >60 [facility] Comment on above: Result Comment: mL/m in/1.73m2 CKD-EPI Creatinine Equation (2020) Performed By: #### L 100.0100, L500.4100, L500.4050, L501.9985 ####[facility] [address] [place], [address] Globulin (S) [Mass/Vol] 2.5 g/dL Normal 2.2-4.2 [facility] Comment on above: Performed By: #### L 100.0100, L500.4100, L500.4050, L501.9985 ####[facility] [address] [place], [address] Glucose [Mass/Vol] 102 mg/dL High 70-99 [facility] Comment on above: Performed By: #### L 100.0100, L500.4100, L500.4050, L501.9985 ####[facility] [address] [place], [address] Potassium [Moles/Vol] 4.2 mmol/L Normal 3.3-5.1 [facility] Comment on above: Performed By: #### L 100.0100, L500.4100, L500.4050, L501.9985 ####[facility] [address] [place], [address] Sodium [Moles/Vol] 142 mmol/L Normal 133-145 [facility] Comment on above: Performed By: #### L 100.0100, L500.4100, L500.4050, L501.9985 ####[facility] [address] [place], [address] T PROT 6.6 g/dL Normal 5.9-8.4 [facility] Comment on above: Performed By: #### L 100.0100, L500.4100, L500.4050, L501.9985 ####[facility] [address] [place], [address] Urea nitrogen [Mass/Vol] 12 mg/dL Normal 4-19 [facility] Comment on above: Performed By: #### L 100.0100, L500.4100, L500.4050, [id number] ####[facility] [address] [place], [address] Eosinophil percentageOrdered By: Ginna Armstrong on 08-16-2024 Eosinophils/100 WBC (Bld) 3.2 % 0-5 [facility] Erythrocyte distribution wid th ratioOrdered By: Ginna Armstrong on 08-16-2024 Erythrocyte distribution width (RBC) [Ratio] 12.8 % 11.6-14.6 [facility] Erythrocyte distribution wid th standard deviationOrdered By: Ginna Armstrong on 08-16-2024 Erythrocyte distribution width (RBC) [Entitic vol] 44.0 fL High 35.1-43.9 [facility] Erythrocyte distribution width (RBC) [Ratio] 44.0 fl High 35.1-43.9 [facility] GFR/1.73 sq M.predicted angie g non-blacks MDRD (S/P/Bld) [Vol rate/Area]Ordered By: Ginna Armstrong on 08-16-2024 Estimated GFR (MDRD) Non-Af Amer 80 >60 [facility] Comment on above: mL/min/1.73m2 CKD-EP I Creatinine Equation (2020) Glomerular filtration rate ( GFR) estimation/1.73 sq m using serum, plasma, or whole bOrdered By: Ginna Armstrong on 08-16-2024 GFR/1.73 sq M.predicted among non-blacks MDRD (S/P/Bld) [Vol rate/Area] 80 mL/min/{1.73_m2} >60 [facility] Comment on above: mL/min/1.73m2 CKD-EP I Creatinine Equation (2020) Hematocrit Auto (Bld) [Volum e fraction]Ordered By: Ginna Armstrong on 08-16-2024 Hematocrit (Bld) [Volume fraction] 38.7 % 37-47 [facility] Hemoglobin A1con 08-16-2024 HbA1c (Bld) [Mass fraction] 5.9 % Normal <=5.6 [facility] Comment on above: Performed By: #### L 100.0100, L500.4100, L500.4050, L501.9985 ####[facility] [address] [place], [place], [id number] Hemoglobin A1c percentageOrd ered By: Ginna Armstrong on 08-16-2024 HbA1c (Bld) [Mass fraction] 5.9 % >5.7 [facility] Hemoglobin measurementOrdere d By: Ginna Armstrong on 08-16-2024 Hemoglobin (Bld) [Mass/Vol] 12.7 g/dL 12.0-15.0 [facility] Immature granulocytes/100 WB C Auto (Bld)Ordered By: Ginna Armstrong on 08-16-2024 Immature granulocytes/100 WBC (Bld) 0.400 % 0.0-0.9 [facility] Comment on above: IG% - Immature Granu locytes (promyelocytes, myelocytes and metamyelocytes) > 1% indicates that a LEFT SHIFT is Present. LDL calc ser/plasOrdered By: Ginna Armstrong on 08-16-2024 Cholesterol in LDL [Mass/Vol] 72 mg/dL [facility] Comment on above: Ulswpmbmih=466-239 m g/dL & Higher Rrpl=927 mg/dL or greater LDL Cholesterol, Calculated 72 mg/dL [facility] Comment on above: Yunnejvyxg=633-274 m g/dL & Higher Gpch=285 mg/dL or greater Laboratory - Chemistry and C hemistry - challengeOrdered By: Ginna Armstrong on 08-16-2024 AST [Catalytic activity/Vol] 18 U/L <32 [facility] Lipid Profileon 08-16-2024 CHOL:HDL 2.99 Normal [facility] Comment on above: Performed By: #### L 100.0100, L500.4100, L500.4050, L501.9985 ####[facility] [address] [place], [address] Cholesterol [Mass/Vol] 190 mg/dL Normal <=[address] [facility] Comment on above: Result Comment: Chol esterol level, Desirable <200 mg/dL Borderline high cholesterol 200-239 mg/dL High cholesterol >=240 mg/dL Recommendations of the NCEP Adult Treatment Panel for the following risk-cutoff thresholds for the [place] population. Performed By: #### L 100.0100, L500.4100, L500.4050, L501.9985 ####[facility] [address] [place], [address] Cholesterol in HDL [Mass/Vol] 64 mg/dL Normal [facility] Comment on above: Result Comment: [place] Cholesterol Education Program (NCEP) guidelines: <40 mg/dL: Low HDL-cholesterol (major risk factor for CHD) >= 60 mg/dL: High HDL-cholesterol (negative risk factor for CHD) HDL-cholesterol is affected by a number of factors, e.g. smoking, exercise, hormones, sex and age. Performed By: #### L 100.0100, L500.4100, L500.4050, L501.9985 ####[facility] [address] [place], [address] Cholesterol in LDL [Mass/Vol] 72 mg/dL Normal [facility] Comment on above: Result Comment: Bord myodgr=581-391 mg/dL Higher Lozh=554 mg/dL or greater Performed By: #### L 100.0100, L500.4100, L500.4050, [id number] ####[facility] [address] [place], [address] Cholesterol in VLDL [Mass/Vol] 55 mg/dL High 5-40 [facility] Comment on above: Performed By: #### L 100.0100, L500.4100, L500.4050, L501.9985 ####[facility] [address] [place], [address] Triglyceride [Mass/Vol] 274 mg/dL High [facility] Comment on above: Result Comment: The drugs N-Acetylcysteine and Metamizole may falsely depress this assay. Normal range: <150 mg/dL Borderline High: 150-199 mg/dL High: 200-499 mg/dL Very High: >500 mg/dL Performed By: #### L 100.0100, L500.4100, L500.4050, L501.9985 ####[facility] [address] [place], [place], [id number] Lymphocytes Auto (Unsp spec) [#/Vol]Ordered By: Ginna Armstrong on 08-16-2024 Lymphocytes (Bld) [#/Vol] 1.88 10*3/uL 0.83-4.51 [facility] Lymphocytes/100 WBC Auto (Un sp spec)Ordered By: Ginna Armstrong on 08-16-2024 Lymphocytes/100 WBC (Bld) 33.5 % 19-41 [facility] MCV (mean corpuscular volume ) determinationOrdered By: Ginna Armstrong on 08-16-2024 MCV (RBC) [Entitic vol] 94.4 fL 81-99 [facility] Mean corpuscular hemoglobin (MCH) determinationOrdered By: Ginna Armstrong on 08-16-2024 MCH (RBC) [Entitic mass] 31.0 pg 27.0-32.0 [facility] Mean corpuscular hemoglobin concentration (MCHC) determinationOrdered By: Ginna Armstrong on 08-16-2024 MCHC (RBC) [Mass/Vol] 32.8 g/dL 32-36 [facility] Mean platelet volume determi nationOrdered By: Ginna Armstrong on 08-16-2024 Platelet mean volume (Bld) [Entitic vol] 10.1 fL 6.2-12.0 [facility] Monocyte percentageOrdered B y: Ginna Armstrong on 08-16-2024 Monocytes/100 WBC (Bld) 6.8 % 0-10 [facility] Neutrophil percentageOrdered By: Ginna Armstrong on 08-16-2024 Neutrophils/100 WBC (Bld) 55.2 % 47-70 [facility] Nucleated red blood cell per centageOrdered By: Ginna Armstrong on 08-16-2024 Nucleated RBC/100 WBC (Bld) [Ratio] 0 % 0-5 [facility] Platelet countOrdered By: Joselito Armstrong on 08-16-2024 Platelets (Bld) [#/Vol] 206 10*3/uL 150-450 [facility] RBC Auto (Bld) [#/Vol]Ordere d By: Ginna Armstrong on 08-16-2024 RBC (Bld) [#/Vol] 4.10 10*6/uL Low 4.2-5.4 [facility] Serum creatinine measurement (mass/volume)Ordered By: Ginna Armstrong on 08-16-2024 Creatinine [Mass/Vol] 0.8 mg/dL 0.70-1.20 [facility] Serum globulin measurementOr dered By: Ginna Armstrong on 08-16-2024 Globulin (S) [Mass/Vol] 2.5 g/dL 2.2-4.2 [facility] Serum glucose measurement (m ass/volume)Ordered By: Ginna Armstrong on 08-16-2024 Glucose [Mass/Vol] 102 mg/dL High 70-99 [facility] Serum or plasma alanine liz otransferase (ALT) measurementOrdered By: Ginna Armstrong on 08-16-2024 ALT [Catalytic activity/Vol] 21 U/L <35 [facility] Serum or plasma albumin ayana urement (mass/volume)Ordered By: Ginna Armstrong on 08-16-2024 Albumin [Mass/Vol] 4.2 g/dL 3.4-4.8 [facility] Serum or plasma albumin/glob ulin mass ratioOrdered By: Ginna Armstrong on 08-16-2024 Albumin/Globulin [Mass ratio] 1.7 {ratio} 0.9-2.4 [facility] Serum or plasma alkaline adrian sphatase measurementOrdered By: Ginna Armstrong on 08-16-2024 ALP [Catalytic activity/Vol] 63 U/L 35-104 [facility] Serum or plasma anion gap de termination (moles/volume)Ordered By: Ginna Armstrong on 08-16-2024 Anion gap [Moles/Vol] 11 mmol/L 5-15 [facility] Serum or plasma calcium ayana urement (mass/volume)Ordered By: Ginna Armstrong on 08-16-2024 Calcium [Mass/Vol] 8.8 mg/dL 7.6-11.0 [facility] Serum or plasma cholesterol in HDL measurement (mass/volume)Ordered By: Ginna Armstrong on 08-16-2024 Cholesterol in HDL [Mass/Vol] 64 mg/dL >40 [facility] Comment on above: National Cholesterol Education Program (NCEP) guidelines:<40 mg/dL: Low HDL-cholesterol (major risk factor for CHD)>= 60 mg/dL: High HDL-cholesterol (negative risk factor for CHD)HDL-cholesterol is affected by a number of factors, e.g. smoking, exercise, hormones, sex and age. Serum or plasma cholesterol measurement (mass/volume)Ordered By: Ginna Armstrong on 08-16-2024 Cholesterol [Mass/Vol] 190 mg/dL <[address] [facility] Comment on above: Cholesterol level, D esirable <200 mg/dLBorderline high cholesterol 200-239 mg/dLHigh cholesterol >=240 mg/dLRecommendations of the NCEP Adult Treatment Panel for the following risk-cutoff thresholds for the [place] population. Serum or plasma potassium me asurementOrdered By: Ginna Armstrong on 08-16-2024 Potassium [Moles/Vol] 4.2 mmol/L 3.3-5.1 [facility] Serum or plasma sodium measu rement (moles/volume)Ordered By: Ginna Armstrong on 08-16-2024 Sodium [Moles/Vol] 142 mmol/L 133-145 [facility] Serum or plasma urea nitroge n measurement (mass/volume)Ordered By: Ginna Armstrong on 08-16-2024 Urea nitrogen [Mass/Vol] 12 mg/dL 4-19 [facility] Total proteinOrdered By: Say Armstrong on 08-16-2024 Protein [Mass/Vol] 6.6 g/dL 5.9-8.4 [facility] Triglycerides measurementOrd ered By: Ginna Armstrong on 08-16-2024 Triglyceride [Mass/Vol] 274 mg/dL High <199 [facility] Comment on above: The drugs N-Acetylcy steine and Metamizole may falsely depress this assay. Normal range: <150 mg/dLBorderline High: 150-199 mg/dLHigh: 200-499 mg/dLVery High: >500 mg/dL White blood cell (WBC) count Ordered By: Ginna Armstrong on 08-16-2024 WBC (Bld) [#/Vol] 5.6 10*3/uL 4.4-11.0 [facility] Absolute lymphocyte countOrd ered By: Pari Cardozo on 08-05-2023 Lymphocytes Auto (Unsp spec) [#/Vol] 2.55 10*3/uL 0.83-4.51 [facility] Automated lymphocyte count a s percentage of total leukocytesOrdered By: Pari Cardozo on 08-05-2023 Lymphocytes/100 WBC Auto (Unsp spec) 32.4 % 19-41 [facility] Basophil percentageOrdered B y: Pari Cardozo on 08-05-2023 Basophils/100 WBC (Bld) 1.0 % 0-1 [facility] Bilirubin [Mass/Vol] 0.30 mg/dL 0.20-1.00 [facility] Comment on above: For patients on eltr ombopag therapy, use of Dimension [place] TBIL is not recommended. Chloride [Moles/Vol] 110 mmol/L 98-107 [facility] Cholesterol [Mass/Vol] 174 mg/dL <[address] [facility] Comment on above: <200 mg/dL Desirable 200-240 mg/dL Borderline >240 mg/dL High Risk Eosinophils/100 WBC (Bld) 2.4 % 0-5 [facility] Glucose [Mass/Vol] 95 mg/dL 74-106 [facility] Hemoglobin (Bld) [Mass/Vol] 13.9 g/dL 12.0-15.0 [facility] Monocytes/100 WBC (Bld) 6.7 % 0-10 [facility] Neutrophils (Bld) [#/Vol] 4.5 10*3/uL 2.0-7.7 [facility] Neutrophils/100 WBC (Bld) 57.2 % 47-70 [facility] Potassium [Moles/Vol] 4.1 mmol/L 3.5-5.1 [facility] Protein [Mass/Vol] 7.0 g/dL 6.4-8.2 [facility] Sodium [Moles/Vol] 143 mmol/L 136-145 [facility] Triglyceride [Mass/Vol] 302 mg/dL <199 [facility] Comment on above: The drugs N-Acetylcy steine and Metamizole may falsely depress this assay.Serum Triglycerides Reference Interval Normal <150 mg/dL Borderline high 150 - 199 mg/dL High 200 - 499 mg/dL Very High > or = 500 mg/dL WBC (Bld) [#/Vol] 7.9 10*3/uL 4.4-11.0 [facility] Determination of erythrocyte mean corpuscular volume (MCV)Ordered By: Pari Cardozo on 08-05-2023 MCV (RBC) [Entitic vol] 96.1 fL 81-99 [facility] Erythrocyte distribution wid th ratioOrdered By: [facility] Erythrocyte distribution width (RBC) [Ratio] 12.6 % 11.6-14.6 [facility] Erythrocyte distribution wid th standard deviationOrdered By: [facility] on 08-05-2023 Erythrocyte distribution width (RBC) [Entitic vol] 44.7 fL 35.1-43.9 [facility] Hematocrit Auto (Bld) [Volum e fraction]Ordered By: Pari Cas on 08-05-2023 Hematocrit (Bld) [Volume fraction] 42.4 % 37-47 [facility] Immature granulocytes/100 WB C Auto (Bld)Ordered By: Crestline Cas on 08-05-2023 Immature granulocytes/100 WBC (Bld) 0.300 % 0.0-0.9 [facility] Comment on above: IG% - Immature Granu locytes (promyelocytes, myelocytes and metamyelocytes) > 1% indicates that a LEFT SHIFT is Present. Laboratory - Chemistry and C hemistry - challengeOrdered By: Paricorbin Cardozo on 08-05-2023 Albumin/Globulin [Mass ratio] 1.0 {ratio} 0.9-2.4 [facility] ALP [Catalytic activity/Vol] 80 U/L 45-117 [facility] ALT [Catalytic activity/Vol] 27 U/L 13-56 [facility] Cholesterol in HDL [Mass/Vol] 44 mg/dL >40 [facility] Comment on above: The drugs N-Acetylcy steine and Metamizole may falsely depress this assay. Reference Range HDL <40 mg/dL Low HDL Cholesterol HDL >or= 60 mg/dL High HDL Cholesterol Cholesterol in LDL [Mass/Vol] 70 mg/dL 0-130 [facility] CO2 [Moles/Vol] 30.0 mmol/L 21.0-32.0 [facility] Globulin (S) [Mass/Vol] 3.5 g/dL 2.2-4.2 [facility] Urea nitrogen/Creatinine [Mass ratio] 18.8 mg/mg 10-20 [facility] Laboratory - Hematology and Cell countsOrdered By: Pari Cardozo on 08-05-2023 MCH (RBC) [Entitic mass] 31.5 pg 27.0-32.0 [facility] MCHC (RBC) [Mass/Vol] 32.8 g/dL 32-36 [facility] Nucleated RBC/100 WBC (Bld) [Ratio] 0 % 0-5 [facility] Platelet mean volume (Bld) [Entitic vol] 10.6 fL 6.2-12.0 [facility] Platelets (Bld) [#/Vol] 216 10*3/uL 150-450 [facility] No Panel InformationOrdered By: Pari Cardozo on 08-05-2023 Estimated GFR (MDRD) Amer 92 mL/min >60 [facility] Comment on above: GFR Calc Estimated GFR (MDRD) Non-Af Amer 76 mL/min >60 [facility] Comment on above: Non- GFR Calc VLDL Cholesterol 60 mg/dL 5-40 [facility] RBC Auto (Bld) [#/Vol]Ordere d By: Pari Cardozo on 08-05-2023 RBC (Bld) [#/Vol] 4.41 10*6/uL 4.2-5.4 [facility] Serum or plasma calcium ayana urement (mass/volume)Ordered By: Pari Cardozo on 08-05-2023 Calcium [Mass/Vol] 8.9 mg/dL 8.5-10.1 [facility] Serum or plasma creatinine m easurement (mass/volume)Ordered By: Pari Cardozo on 08-05-2023 Creatinine [Mass/Vol] 0.80 mg/dL 0.55-1.02 [facility] Comment on above: The validity of the calculated GFR & GFRAA in patients over 70 years has not been determined. Clinical correlation is essential. Serum or plasma urea nitroge n measurement (mass/volume)Ordered By: Pari Cardozo on 08-05-2023 Urea nitrogen [Mass/Vol] 15 mg/dL 7-18 [facility] Thin prep Papanicolaou smear with manual screeningOrdered By: Pari Cardozo on 08-05-2023 Thin prep Papanicolaou smear with manual screening 3.5 g/dL 3.2-5.0 [facility] Thin prep Papanicolaou smear with manual screening 19 U/L 15-37 [facility] Thin prep Papanicolaou smear with manual screening 3 5-15 [facility] Whole blood hemoglobin A1c/t otal hemoglobin ratio (mass fraction)Ordered By: Pari Cardozo on 08-05-2023 HbA1c (Bld) [Mass fraction] 5.6 % 3.8-5.6 [facility] Comment on above: Normal < 5.7 % Predi abetic 5.7 - 6.4 % Diabetic >or= 6.5 % Please note range changes. Basophil percentageOrdered B y: Ginna Armstrong on 02-04-2023 Bilirubin [Mass/Vol] 0.40 mg/dL 0.20-1.00 [facility] Comment on above: For patients on eltr ombopag therapy, use of [place] TBIL is not recommended. Cholesterol [Mass/Vol] 148 mg/dL <[address] [facility] Comment on above: <200 mg/dL Desirable 200-240 mg/dL Borderline >240 mg/dL High Risk Protein [Mass/Vol] 6.8 g/dL 6.4-8.2 [facility] Triglyceride [Mass/Vol] 263 mg/dL <199 [facility] Comment on above: The drugs N-Acetylcy steine and Metamizole may falsely depress this assay.Serum Triglycerides Reference Interval Normal <150 mg/dL Borderline high 150 - 199 mg/dL High 200 - 499 mg/dL Very High > or = 500 mg/dL Direct bilirubinOrdered By: Ginna Armstrong on 02-04-2023 Bilirubin.direct [Mass/Vol] 0.11 mg/dL 0.00-0.30 [facility] Laboratory - Chemistry and C hemistry - challengeOrdered By: Ginna Armstrong on 02-04-2023 ALP [Catalytic activity/Vol] 71 U/L 45-117 [facility] ALT [Catalytic activity/Vol] 34 U/L 13-56 [facility] Globulin (S) [Mass/Vol] 3.2 g/dL 2.2-4.2 [facility] Serum or plasma albumin ayana urement (mass/volume)Ordered By: Ginna Armstrong on 02-04-2023 Albumin [Mass/Vol] 3.6 g/dL 3.2-5.0 [facility] Serum or plasma cholesterol in HDL measurement (mass/volume)Ordered By: Ginna Armstrong on 02-04-2023 Cholesterol in HDL [Mass/Vol] 42 mg/dL >40 [facility] Comment on above: The drugs N-Acetylcy steine and Metamizole may falsely depress this assay. Reference Range HDL <40 mg/dL Low HDL Cholesterol HDL >or= 60 mg/dL High HDL Cholesterol Serum or plasma cholesterol in VLDL measurement (mass/volume)Ordered By: Ginna Armstrong on 02-04-2023 Cholesterol in VLDL [Mass/Vol] 53 mg/dL 5-40 [facility] Serum or plasma low density lipoprotein (LDL) cholesterol measurement (mass/volume)Ordered By: Ginna Armstrong on 02-04-2023 Cholesterol in LDL [Mass/Vol] 53 mg/dL 0-130 [facility] Thin prep Papanicolaou smear with manual screeningOrdered By: Ginna Armstrong on 02-04-2023 Thin prep Papanicolaou smear with manual screening 16 U/L 15-37 [facility] 36on 07-20-2022 36 The following messag e was sent through [facility] and appt was cancelled. Patient cancelled her appt for 07/22/22 @ 1:00. thank you Normal [facility] Absolute lymphocyte countOrd ered By: Dr. Armstrong on 07-09-2022 Lymphocytes Auto (Unsp spec) [#/Vol] 3.08 10*3/uL 0.83-4.51 [facility] Basophil percentageOrdered B y: Dr. Armstrong on 07-09-2022 Basophils/100 WBC (Bld) 0.8 % 0-1 [facility] Chloride [Moles/Vol] 105 mmol/L 98-107 [facility] Cholesterol [Mass/Vol] 228 mg/dL <[address] [facility] Comment on above: <200 mg/dL Desirable 200-240 mg/dL Borderline >240 mg/dL High Risk Eosinophils/100 WBC (Bld) 2.5 % 0-5 [facility] Glucose [Mass/Vol] 96 mg/dL 74-106 [facility] Neutrophils (Bld) [#/Vol] 5.9 10*3/uL 2.0-7.7 [facility] Neutrophils/100 WBC (Bld) 59.2 % 47-70 [facility] Potassium [Moles/Vol] 4.4 mmol/L 3.5-5.1 [facility] Sodium [Moles/Vol] 142 mmol/L 136-145 [facility] Triglyceride [Mass/Vol] 344 mg/dL <199 [facility] Comment on above: The drugs N-Acetylcy steine and Metamizole may falsely depress this assay.Serum Triglycerides Reference Interval Normal <150 mg/dL Borderline high 150 - 199 mg/dL High 200 - 499 mg/dL Very High > or = 500 mg/dL WBC (Bld) [#/Vol] 10.0 10*3/uL 4.4-11.0 [facility] Blood erythrocytes count (nu mber/volume)Ordered By: Dr. Armstrong on 07-09-2022 RBC (Bld) [#/Vol] 4.56 10*6/uL 4.2-5.4 [facility] Blood hemoglobin measurement (mass/volume)Ordered By: Dr. Armstrong on 07-09-2022 Hemoglobin (Bld) [Mass/Vol] 14.4 g/dL 12.0-15.0 [facility] Blood lymphocytes/100 leukoc ytesOrdered By: Dr. Armstrong on 07-09-2022 Lymphocytes/100 WBC (Bld) 30.7 % 19-41 [facility] Blood monocytes/100 leukocyt esOrdered By: Dr. Armstrong on 07-09-2022 Monocytes/100 WBC (Bld) 6.5 % 0-10 [facility] Blood platelet mean volumeOr dered By: Dr. Armstrong on 07-09-2022 Platelet mean volume (Bld) [Entitic vol] 11.1 fL 6.2-12.0 [facility] Determination of erythrocyte mean corpuscular volume (MCV)Ordered By: Dr. Armstrong on 07-09-2022 MCV (RBC) [Entitic vol] 97.4 fL 81-99 [facility] Hematocrit Auto (Bld) [Volum e fraction]Ordered By: Dr. Armstrong on 07-09-2022 Hematocrit (Bld) [Volume fraction] 44.4 % 37-47 [facility] Laboratory - Chemistry and C hemistry - challengeOrdered By: Dr. Armstrong on 07-09-2022 CO2 [Moles/Vol] 32.0 mmol/L 21.0-32.0 [facility] Urea nitrogen/Creatinine [Mass ratio] 14.3 mg/mg 10-20 [facility] Laboratory - Hematology and Cell countsOrdered By: Dr. Armstrong on 07-09-2022 Erythrocyte distribution width (RBC) [Entitic vol] 46.1 fL 35.1-43.9 [facility] Erythrocyte distribution width (RBC) [Ratio] 12.9 % 11.6-14.6 [facility] Immature granulocytes/100 WBC (Bld) 0.300 % 0.0-0.9 [facility] Comment on above: IG% - Immature Granu locytes (promyelocytes, myelocytes and metamyelocytes) > 1% indicates that a LEFT SHIFT is Present. MCH (RBC) [Entitic mass] 31.6 pg 27.0-32.0 [facility] Nucleated RBC/100 WBC (Bld) [Ratio] 0 % 0-5 [facility] MCHC Auto (RBC) [Mass/Vol]Or dered By: Dr. Armstrong on 07-09-2022 MCHC (RBC) [Mass/Vol] 32.4 g/dL 32-36 [facility] No Panel InformationOrdered By: Dr. Armstrong on 07-09-2022 Estimated GFR (MDRD) Amer 87 mL/min >60 [facility] Comment on above: GFR Calc Estimated GFR (MDRD) Non-Af Amer 72 mL/min >60 [facility] Comment on above: Non- GFR Calc Thyroid Stimulating Hormone (TSH) 3.59 uIU/mL 0.358-3.74 [facility] Platelets bldOrdered By: Dr. Armstrong on 07-09-2022 Platelets (Bld) [#/Vol] 250 10*3/uL 150-450 [facility] Serum or plasma calcium ayana urement (mass/volume)Ordered By: Dr. Armstrong on 07-09-2022 Calcium [Mass/Vol] 8.9 mg/dL 8.5-10.1 [facility] Serum or plasma cholesterol in HDL measurement (mass/volume)Ordered By: Dr. Armstrong on 07-09-2022 Cholesterol in HDL [Mass/Vol] 46 mg/dL >40 [facility] Comment on above: The drugs N-Acetylcy steine and Metamizole may falsely depress this assay. Reference Range HDL <40 mg/dL Low HDL Cholesterol HDL >or= 60 mg/dL High HDL Cholesterol Serum or plasma cholesterol in VLDL measurement (mass/volume)Ordered By: Dr. Armstrong on 07-09-2022 Cholesterol in VLDL [Mass/Vol] 69 mg/dL 5-40 [facility] Serum or plasma creatinine m easurement (mass/volume)Ordered By: Dr. Armstrong on 07-09-2022 Creatinine [Mass/Vol] 0.84 mg/dL 0.55-1.02 [facility] Comment on above: The validity of the calculated GFR & GFRAA in patients over 70 years has not been determined. Clinical correlation is essential. Serum or plasma low density lipoprotein (LDL) cholesterol measurement (mass/volume)Ordered By: Dr. Armstrong on 07-09-2022 Cholesterol in LDL [Mass/Vol] 113 mg/dL 0-130 [facility] Serum or plasma urea nitroge n measurement (mass/volume)Ordered By: Dr. Armstrong on 07-09-2022 Urea nitrogen [Mass/Vol] 12 mg/dL 7-18 [facility] Thin prep Papanicolaou smear with manual screeningOrdered By: Dr. 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 [employer] Work Phone: Smoking cessation education (procedure) yes Invalid Interpretation Code [facility] [employer] Work Phone: Tobacco smoking status NHIS Current Invalid Interpretation Code [facility] [employer] Work Phone: Tobacco use [facility] Current every day smoker Invalid Interpretation Code [facility] [employer] Work Phone: Office Visit: rectal bleedin preethi 12-31-2016 Fall risk assessment No [facility] [employer] Work Phone: Protein mass conc no [facility] [employer] Work Phone: Protein mass conc yes [facility] [employer] Work Phone: Protein mass conc Done [facility] [employer] Work Phone: Tobacco smoking status NHIS Current [facility] [employer] Work Phone: Tobacco smoking status WAIS Current every day smoker [facility] [employer] Work Phone: Office Visit: rectal bleedin preethi 02-14-2003 Protein mass conc Adenomatous Polyp [facility] [employer] Work Phone: Vital Signs Date Time Vital Sign Value Performing Clinician Facility 01-22-2025 07:36-0400 Body height 172.[address] Ginna Armstrong MD Work Phone: [facility] 01-22-2025 07:36-0400 Body mass index (BMI) [Ratio] 29 kg/m2 Dr. Ginna Armstrong MD Work Phone: [facility] 01-22-2025 07:36-0400 Body temperature 97.3 [degF] Dr. Ginna Armstrong MD Work Phone: [facility] 01-22-2025 07:36-0400 Body weight 86.[address] Ginna Armstrong MD Work Phone: [facility] 01-22-2025 07:36-0400 Diastolic blood pressure 74 mm[Hg] Dr. Ginna Armstrong MD Work Phone: [facility] 01-22-2025 07:36-0400 Heart rate 92 /min Dr. Ginna Armstrong MD Work Phone: [facility] 01-22-2025 07:36-0400 Respiratory rate 18 /min Dr. Ginna Armstrong MD Work Phone: [facility] 01-22-2025 07:36-0400 SaO2% (BldA) [Mass fraction] 95 % Dr. Ginna Armstrong MD Work Phone: [facility] 01-22-2025 07:36-0400 Systolic blood pressure 108 mm[Hg] Dr. Ginna Armstrong MD Work Phone: [facility] 12-28-2024 01:05-0400 Body temperature 98 [degF] Dr. Ginna Armstrong MD Work Phone: [facility] 12-28-2024 01:05-0400 Diastolic blood pressure 44 mm[Hg] Dr. Ginna Armstrong MD Work Phone: [facility] 12-28-2024 01:05-0400 Heart rate 79 /min Dr. Ginna Armstrong MD Work Phone: [facility] 12-28-2024 01:05-0400 Respiratory rate 16 /min Dr. Ginna Armstrong MD Work Phone: [facility] 12-28-2024 01:05-0400 SaO2% (BldA) [Mass fraction] 98 % Dr. Ginna Armstrong MD Work Phone: [facility] 12-28-2024 01:05-0400 Systolic blood pressure 100 mm[Hg] Dr. Ginna Armstrong MD Work Phone: [facility] 12-27-2024 22:16-0400 Body mass index (BMI) [Ratio] 30.7 kg/m2 Dr. Ginna Armstrong MD Work Phone: [facility] 12-27-2024 22:16-0400 Body weight 91.[address] Ginna Armstrong MD Work Phone: [facility] 12-27-2024 21:24-0400 Body height 172.[address] Ginna Armstrong MD Work Phone: [facility] 12-20-2024 00:01-0400 Body temperature 98.2 [degF] Dr. Ginna Armstrong MD Work Phone: [facility] 12-20-2024 00:01-0400 Diastolic blood pressure 57 mm[Hg] Dr. Ginna Armstrong MD Work Phone: [facility] 12-20-2024 00:01-0400 Heart rate 81 /min Dr. Ginna Armstrong MD Work Phone: [facility] 12-20-2024 00:01-0400 Respiratory rate 16 /min Dr. Ginna Armstrong MD Work Phone: [facility] 12-20-2024 00:01-0400 SaO2% (BldA) [Mass fraction] 95 % Dr. Ginna Armstrong MD Work Phone: [facility] 12-20-2024 00:01-0400 Systolic blood pressure 104 mm[Hg] Dr. Ginna Armstrong MD Work Phone: [facility] 12-20-2024 00:00-0400 Inhaled oxygen flow rate 2 L/min Dr. Ginna Armstrong MD Work Phone: [facility] 12-19-2024 20:16-0400 Body mass index (BMI) [Ratio] 30.2 kg/m2 Dr. Ginna Armstrong MD Work Phone: [facility] 12-19-2024 20:16-0400 Body weight 90.[address] Ginna Armstrong MD Work Phone: [facility] 12-19-2024 19:28-0400 Body height 172.[address] Ginna Armstrong MD Work Phone: [facility] 12-31-2016 14:11-0400 BMI (Body Mass Index) 30.38 kg/m2 Branden Bahena MD [facility] [employer] Work Phone: 12-31-2016 14:11-0400 Body Temperature 97.7 [degF] Branden Bahena MD [facility] [employer] Work Phone: 12-31-2016 14:11-0400 BP Diastolic 75 mm[Hg] Branden Bahena MD [facility] Work Phone: 12-31-2016 14:11-0400 BP Systolic 106 mm[Hg] Branden Bahena MD [facility] Work Phone: 12-31-2016 14:11-0400 Height 172.72 cm Branden Bahena MD [facility] Work Phone: 12-31-2016 14:11-0400 Pulse (Heart Rate) 93 /min Branden Bahena MD [facility] Work Phone: 12-31-2016 14:11-0400 Respiratory Rate 20 /min Branden Bahena MD [facility] Work Phone: 12-31-2016 14:11-0400 Weight 90.63 kg Branden Bahena MD [facility] Work Phone: Encounters Encounter Date Encounter Type Care Provider Facility Start: 02-23-2025 natalia Dickerson Facility:[facility] Start: 01-22-2025 End: 01-22-[address] Baldomero Dickerson DO -[facility] Work Phone: Start: 01-22-2025 End: 01-22-[address] Ginna Armstrong MD Work Phone: -[facility] Start: 12-27-2024 End: 12-28-2024 Emergency department patient visit Dr. Ginna Armstrong MD Work Phone: -Emergency Department Work Phone: Start: 12-23-2024 End: 12-24-2024 Telephone encounter Facundo Shepard PA-C Work Phone: [facility] Comment on above: Hospital Follow Up Start: 12-20-2024 End: 12-22-2024 Evaluation and management of inpatient GINNA ARMSTRONG Facility:[facility] Start: 12-19-2024 End: 12-20-2024 Emergency department patient visit Dr. Ginna Armstrong MD Work Phone: -Emergency Department Work Phone: Start: 11-24-2024 End: 11-24-[address] Ginna Armstrong MD -[facility]iology [facility] Work Phone: Start: 11-24-2024 End: 11-24-[address] Ginna Armstrong MD Work Phone: [facility] Work Phone: Start: 09-13-2024 End: 09-13-[address] Ginna Armstrong MD Work Phone: [facility] Work Phone: Start: 09-13-2024 End: 09-13-[address] Ginna Armstrong MD -Outpatient Breast Imaging Work Phone: Start: 09-13-2024 End: 09-13-2024 ambulatory Ginna Armstrong Facility:[facility] Start: 08-26-2024 End: 08-26-[address] Ginna Armstrong MD Work Phone: [facility] Work Phone: Start: 08-26-2024 End: 08-26-[address] Ginna Armstrong MD -Cat Scan, [facility] Work Phone: Start: 08-26-2024 End: 08-26-2024 ambulatory Ginna Armstrong Facility:[facility] Start: 08-16-2024 End: 08-16-[address] Ginna Armstrong MD Work Phone: [facility] Work Phone: Start: 08-16-2024 End: 08-16-[address] Ginna Armstrong MD -Laboratory Work Phone: Start: 08-16-2024 End: 08-16-2024 ambulatory Ginna Armstrong Facility:[facility] Start: 10-05-2023 End: 10-05-2023 ambulatory [facility] Work Phone: Start: 10-05-2023 End: 10-05-2023 Patient encounter procedure [facility]-Outpatient Bone Densitometry Work Phone: Start: 09-13-2023 End: 09-13-2023 ambulatory [facility] Work Phone: Start: 09-13-2023 End: 09-13-2023 Patient encounter procedure [facility]-Outpatient Breast Imaging Work Phone: Start: 08-05-2023 End: 08-05-2023 ambulatory [facility] Work Phone: Start: 08-05-2023 End: 08-05-2023 Patient encounter procedure [facility]-Laboratory Work Phone: Start: 02-04-2023 End: 02-04-2023 ambulatory [facility] Work Phone: Start: 02-04-2023 End: 02-04-2023 Patient encounter procedure [facility]-Arnaud Murguia [facility] Start: 09-11-2022 End: 09-11-2022 ambulatory [facility] Work Phone: Start: 09-11-2022 End: 09-11-2022 Patient encounter procedure [facility]-Cat Scan, [facility] Start: 07-20-2022 Telephone encounter Irish Cadet MD Work Phone: [facility] Start: 07-09-2022 End: 07-09-2022 ambulatory [facility] Work Phone: Start: 07-09-2022 End: 07-09-2022 Patient encounter procedure [facility] Procedures Date Procedure Procedure Detail Performing Clinician Start: 12-28-[address] Ginna Armstrong MD Work Phone: Start: 12-28-2024 Gram stain microscopy D abby Armstrong MD Work Phone: Start: 12-28-2024 Microbial culture, b jaimie fluid Dr. Ginna Armstrong MD Work Phone: Start: 12-28-2024 Microbial culture, b jaimie fluid Dr. Ginna Armstrong MD Work Phone: Start: 12-27-2024 XR knee, [address] Joselito Armstrong MD Work Phone: Start: 12-27-[address] Ginna Armstrong MD Work Phone: Start: 12-19-2024 CT angiography of ch est with contrast Dr. Ginna Armstrong MD Work Phone: Start: 12-19-[address] Ginna Armstrong MD Work Phone: Start: 12-19-2024 Plain chest X-ray Dr. Bhupendra Armstrong MD Work Phone: Start: 11-24-2024 X-ray of knee, four or more views Dr[address] Ginna Armstrong MD Work Phone: Start: 09-13-2024 Screening mammography Malvin Armstrong MD Work Phone: Start: 08-26-[address] Ginna Armstrong MD Work Phone: Start: 10-05-2023 Dual energy X-ray absorptiometry Start: 09-13-2023 Screening mammography Start: 09-11-2022 Screening mammography Start: 09-11-2022 CT of chest Start: 12-31-2016 End: 12-31-2016 Dietary management education, guidance, and counseling Branden Bahena MD Plan of Treatment Date Care Activity Detail Author Start: 12-28-2024 Anaerobic Culture Anaerobic Culture [facility] Start: 12-28-2024 Body Fluid Culture Body Fluid Cultur e [facility] Start: 12-28-2024 Microscopic observat ion [Identifier] in Unspecified specimen by Gram stain Gram Stain [facility] Start: 12-28-2024 Microbial culture, b jaimie fluid [facility] Start: 12-28-2024 [facility] Start: 12-27-2024 Arthrocentesis aspir &/inj major jt/bursa w/o us DRAIN/INJ JOINT/BURSA W/O US [facility] Start: 12-20-2024 [facility] Start: 12-19-2024 [facility] Start: 12-19-2024 End: 12-19-2024 [facility] Start: 2022 Pneumococcal Vaccine : 65+ Years (1 - PCV) Pneumococcal Vaccine: 65+ Years (1 - PCV) [facility] Start: 02-19-2022 Influenza vaccination Influenza Vacc ine (#1) [facility] Start: 12-31-2016 End: 12-31-[address] [facility] [employer] Work Phone: Start: 12-31-2016 End: 01-04-2017 Colonoscopy flx dx w/collj spec when pfrmd Colonoscopy [facility] [employer] Work Phone: Start: 2007 Zoster Vaccines (1 of 2) Zoste r Vaccines (1 of 2) [facility] Start: 1997 Screening for malign ant neoplasm of breast Mammogram [facility] Start: 1987 Screening for malign ant neoplasm of cervix [facility] Start: 1978 Screening for malign ant neoplasm of cervix Pap Smear [facility] Start: 1976 DTaP/Tdap/Td Vaccine s (1 - Tdap) DTaP/Tdap/Td Vaccines (1 - Tdap) [facility] Start: 1975 Hepatitis C screening Hepatitis C Sc reening [facility] Start: 1957 COVID-19 Vaccine (#1) COVID-19 Vacci ne (#1) [facility] Start: 1957 Annual wellness visit Medicare Initial Physical (IPPE) [facility] Start: 1957 Hepatitis B Vaccines (1 of 3 - 3-dose series) Hepatitis B Vaccines (1 of 3 - 3-dose series) [facility] Start: 1957 Screening for malign ant neoplasm of colon [facility] Start: 1957 Screening for osteoporosis Bone Dens ity Scan [facility] Bacteria identified in Body fluid by Culture [facility] Bacteria identified in Unspecified specimen by Anaerobe culture [facility] Cell count [facility] Crystals [type] in B jaimie fluid by Light microscopy [facility] End: 12-23-2025 Echocardiography [facility] Routine Pulmonary embolism, bilateral (HCC) Acute deep vein thrombosis (DVT) of popliteal vein of left lower extremity (HCC) 1 Occurrences starting 12/23/2024 until 12/23/2025 [facility] Work Phone: Comment on above: 1 Occurrences starti ng 12/23/2024 until 12/23/2025 Erythrocytes [#/volu me] in Body fluid [facility] Laboratory data interpretation [facility] Microscopic observat ion [Identifier] in Unspecified specimen by Gram stain [facility] Patient Education ED Knee Effusion [facility] Work Phone: Specimen description [facility] Specimen processing [facility] US Heart [facility] Payers Date Payer Category Payer Self-pay [id number] 2024 Medicare (Managed Care) [employer]EV[employer] [id number] 2024 Unknown [id number] Private Health Insurance [id number] Unknown [id number] Unknown [id number] Unknown [id number] Unknown [id number] Unknown [id number] Unknown [id number] Unknown [id number] Unknown [id number] Unknown [id number] Social History Date Type Detail Facility [facility] Work Phone: Start: 1955 Sex Assigned At Female [facility] Tobacco smoking stat us WAIS Tobacco smoking consumption unknown [facility] Start: 1955 Sex Assigned At Not on file [facility] Start: 08-30-2024 End: 09-18-2024 Sex Female (finding) [facility] Start: 12-19-2024 Tobacco smoking status NHIS Current Heavy tobacco smoker [facility] Start: 12-20-2024 History of Social function [place] [employer] Work Phone: Start: 12-20-[address] [facility] Work Phone: Has the [employer], [employer], or water eNovance threatened to shut off services in your home in past 12Mo No [facility] Work Phone: (I/We) worried jorge er (my/our) food would run out before (I/we) got money to buy more. Never true [facility] In the past 12 month s, has lack of transportation kept you from medical appointments or from getting medications? No [facility] Start: 12-27-2024 End: 01-15-2025 Tobacco smoking status NHIS Ex-smoker (finding) [facility] Goals Date Patient Goal Desired Activity /State Personal health goal Functional Status Date Assessment Result Facility 12-22-2024 Are you deaf, or do you have serious difficulty hearing No 12/22/2024 11:13 AM Jean Pierce, YARITZA [facility] 12-22-2024 Are you blind, or do you have serious difficulty seeing, even when wearing glasses No 12/22/2024 11:13 AM Jean Pierce RN No [facility] 12-22-2024 Do you have serious difficulty walking or climbing stairs No 12/22/2024 11:13 AM Jean Pierce, YARITZA [facility] 12-22-2024 Do you have difficul ty dressing or bathing No 12/22/2024 11:13 AM Jean Pierce, YARITZA [facility] 12-22-2024 Because of a physica l, mental, or emotional condition, do you have difficulty doing errands alone such as visiting a physician's office or shopping No 12/22/2024 11:13 AM EDT Jean Vera RN No [facility] Mental Status Date Assessment Result Facility 12-22-2024 Because of a physica l, mental, or emotional condition, do you have serious difficulty concentrating, remembering, or making decisions No 12/22/2024 11:13 AM EDT Jean Vera RN No [facility] 12-19-2024 Cognitive function Voice/Name [facility] Work Phone: Clinical Notes 07-20-2022 to 12-27-2024 Telephone Encounter - Joanne Abbott - 12/23/2024 10:11 AM EDTTelephone Encounter - Deshaun Abbottley - 12/23/2024 10:11 AM EDTTelephone Encounter - Facundo Shepard PA-C - 12/23/2024 7:32 AM EDT Note Date & Type Note Facility 12-27-2024 Radiology Diagnostic study note [facility] Imaging Services [address] [place] [id number] Knee 3 Views MR#: [id number] Acct: [id number] Name: SHANNAN DUARTE Rep #: [id number] : 1955 F [id number] From: Zach Albrecht MD PCP: Dr. Ginna Armstrong MD Status: REG ER Study:Knee 3 Views Date of Exam: 5 Exam# [id number] Ordering Dr: Fatimah Orozco DO PROCEDURE: KNEE 3 VIEWS 12/27/2024 REASON FOR EXAM: PAIN TECHNIQUE: KNEE 3 VIEWS COMPARISON: 11/24/2024 FINDINGS: No acute fracture or dislocation. Alignment is anatomic. Minimal medial tibiofemoral joint space narrowing. Small nonspecific suprapatellar joint effusion. No aggressive osseous lesion. No appreciable softtissue swelling or radiopaque foreign body. RAD/Knee 3 Views IMPRESSION: No acute fracture, dislocation, or substantial degenerative arthrosis. Nonspecific small suprapatellar joint effusion, similar to prior exam. Reading Location: [id number] CC: Dr. Ginna Armstrong MD; DO Duglas Beal [employer]: Signed [facility] 12-23-2024 Telephone encounter Note PSS contacted the patient to schedule echo and 3 month follow up with [facility]. Patient states she is wanting to discuss her provider options for pulmonary with her PCP at her upcoming visit next week. [facility] 12-23-2024 Miscellaneous Notes PSS contacted the patient to schedule echo and 3 month follow up with [facility]. Patient states she is wanting to discuss her provider options for pulmonary with her PCP at her upcoming visit next week. Please schedule this patient for a hospital follow up appointment in 3 months with ECHO prior. Prefers Boy. documented in this encounter [facility] 12-23-2024 Telephone encounter Note Please schedule this patient for a hospital follow up appointment in 3 months with ECHO prior. Prefershawnee Brunson. [facility] 12-22-2024 Note HNO ID: [id number] Author: ZOFIA YI MD Service: Pulmonary Disease Author Type: Physician Type: Progress Notes Filed: 12/22/2024 09:25 Note Text: PULMONARY PROGRESS NOTE [facility] SERVICE DATE: December 22, 2024 SERVICE TIME: 8:12 AM Subjective Patient seen and examined. No acute distress. Denies shortness of breath, wheezing, cough, phlegm, chest pain, fevers or chills. OBJECTIVE Current Facility-Administered Medications Medication Dose Route Frequency Provider Last Rate Last Admin senna-docusate 8.6-50 mg 1 tablet (SENNA-S) 1 tablet ORAL BID Haddadin, Muhannad, MD 1 tablet at 12/21/24 2149 acetaminophen 650 mg tab(s) (TYLENOL) 650 mg ORAL q 4 H PRN Hira Luciano MD 650 mg at 12/22/24 0359 apixaban 10 mg tab(s) (ELIQUIS) 10 mg ORAL BID Hira Luciano MD 10 mg at 12/21/24 215 Followed by [START ON 12/28/2024] apixaban 5 mg tab(s) (ELIQUIS) 5 mg ORAL BID Hira Luciano MD atorvastatin 10 mg tab(s) (LIPITOR) 10 mg ORAL AT BEDTIME Hira Luciano MD 10 mg at 12/21/242149 sodium chloride 0.9 % (flush) 2-10 mL (BD POSIFLUSH) 2-10 mL INTRAVENOUS DIRECTED PRN Hira Luciano MD And perflutren lipid microspheres 1.1 mg/mL 1.3 mL injection (DEFINITY) 1.3 mL INTRAVENOUS DIRECTED PRN Hira uLciano MD NaCl 0.9% iv flush bag 20 mL INTRAVENOUS PRN Hira Luciano MD INTAKE AND OUTPUT Intake/Output Summary (Last 24 hours) at 12/22/2024 0812 Last data filed at 12/21/20240 Gross per 24 hour Intake 1286.6 ml Output 600 ml Net 686.6 ml New Radiology Films: CT chest outside:12/19/24: extensive bilateral PE with the most proximal emboli located at the right interlobular artery and distal left main pulmonary artery, extending into the lobar, segmental, and subsegmental branches in every lobe. The main pulmonary artery measures 2.9 cm in diameter. Signs of right heart strain with bowing of the IV septum and reflux of the contrast into the hepatic veins; RV/LV ratio 2. Echo: 12/20/24: Technically difficult exam due to respiratory interference. - Exam indication: Respiratory failure with established non-cardiac etiology - The left ventricle is normal in size. Left ventricular systolic function is normal. EF = 59 ? 5% (2D biplane) - The right ventricle is normal in size. Right ventricular systolic function is mildly decreased. - There is systolic flattening consistent with RV pressure overload, but there is no diastolic flattening of the interventricular septum. - Estimated right ventricular systolic pressure is likely underestimated due to a weak or incomplete tricuspid regurgitation signal and is, at least, 31 mmHg consistent with normal pulmonary artery pressures. Estimated right atrial pressure is 8 mmHg based on IVC assessment. - There are no significant valvular abnormalities. - The patient has not had a prior [facility] echocardiographic exam for comparison. Duplex of LE:12/20/24: IMPRESSION: Negative study for proximal DVT in the left and right lower extremities. Positive study for acute calf DVT in the left peroneal vein. Negative study for superficial thrombophlebitis in the imaged segments of the left and right lower extremities. NEW LABS ABG: BMP: Glucose (mg/dL) Date Value 12/22/2024 114 Potassium (mmol/L) Date Value 12/22/2024 4.0 Sodium (mmol/L) Date Value 12/22/2024 141 Chloride (mmol/L) Date Value 12/22/2024 107 CO2 (mmol/L) Date Value 12/22/2024 24 Creatinine (mg/dL) Date Value 12/22/2024 0.68 BUN (mg/dL) Date Value 12/22/2024 8 Anion Gap (mmol/L) Date Value 12/22/2024 10 Calcium, Total (mg/dL) Date Value 12/22/2024 8.4 CBC: Hemoglobin (g/dL) Date Value 12/22/2024 9.0 12/22/2024 9.2 12/21/2024 9.7 Hematocrit (%) Date Value 12/22/2024 27.0 12/22/2024 29.0 12/21/2024 30.1 WBC (k/uL) Date Value 12/22/2024 5.42 12/22/2024 6.27 12/21/2024 7.80 Vital Signs 12/21/24 2311 12/21/24 2312 12/22/24 0311 12/22/24 0733 BP: 94/59 123/79 140/84 Pulse: 77 72 83 Resp: 20 20 18 Temp: (!) 35.9 ?C (96.7 ?F) 36.6 ?C (97.9 ?F) 36.5 ?C (97.7 ?F) 36.2 ?C (97.1 ?F) TempSrc: Axillary Oral Oral Oral SpO2: 93% 94% 95% Weight: Height: PHYSICAL EXAM: GENERAL: AAOx3, pleasant, resting in bed, NAD RESPIRATORY: CTAB, even/unlabored respirations at rest. No wheezing, accessory muscle use, pursed lip breathing or conversational dyspnea. Patient is on RA CARDIOVASCULAR: Normal S1S2, RRR GI: Abdomen soft, nondistended, nontender, bowel sounds present x4. Bruising with hematoma present in the right groin EXTREMITIES: No clubbing, cyanosis, edema. Moves all extremities equal x 4 ? Assessment: # Unprovoked intermediate-high risk PE with proximal thombi in interlobar R PA, WILL . RV strain (CT, high proBNP, high trops) s/p mechanical thrombectomy 12/20 c/b small groin hematoma #acute hypoxic resp failure 07/23 PE-resolved #acute distal DVT in L annette (more content not included)... [facility] 12-21-2024 Note HNO ID: [id number] Author: GALI ZHENG MD Service: Critical Care Author Type: Physician Type: Progress Notes Filed: 12/28/2024 08:25 Note Text: MICU PROGRESS NOTE PATIENT NAME: Shannan Duarte REASON FOR ADMISSION: unprovoked PE intermediate-high risk LOS: 1 Subjective HPI Ms. Shannan Duarte is a 69 year old female with PMH of dyslipidemia and recent root canal procedures and oral implantation surgery presented to the [facility] ED on 12/19 with complaints of acute onset shortness of breath associated with chest pain and increased sweating. The patient was apparently well until mid of october when she started developing left knee pain, which was acute in onset, 7-8 in pain scale. Following her root canal on November 07, she was given 5 days course of prednisone which drastically improved her pain which was similar to what she experienced post-oral implantation course of prednisone. Because of the pain her activities in general weren't affected much, she remained mobile but cautious not to stress the leg. X ray leg ordered during her PCP visit which was negative. She even visited ortho in the beginning of November for the same complaints and received intrasynovial corticosteroid injection. Beginning from 12/16 pt started experiencing intermitted sharp chest pains that lasted for 10-15 mins associated with little breathing difficulty but resolved later. She thought that she might be pulling some muscles since she felt most of it in the back, lower lateral chest area. On 12/19, she experienced sever chest pain which was sudden in onset, associated with palpitations, breathing difficulty, diaphoresis. On arriving to [place] ED, work up revealed bilateral PE with right heart strain with bowing of IV septum and reflux of the contrast into the hepatic veins. She was initially desaturated upto 87% in RA, put on 2l NC, saturating at 94-95% since then. No history of loss of appetite, intentional weight loss, fever, chills. No prior history of DVT, history of malignancy. She is up to date with her annual health screenings. She is transferred to [facility] MICU for PE management with possibility of thrombectomy. INTERVAL EVENTS No acute event overnight. This morning, patient was looking well, not in any acute distress. Post her thrombectomy, pt is able to saturate well in RA, but developed a small hematoma in her right groin area (where the vein was accessed for thrombectomy procedure), the size is stable and not increasing. She complaints of pain in this region. She endorses constipation and would like stool softener. Pertinent results include: DVT positive for acute calf DVT int he left peroneal vein. NT-pro BNP 2723 CHERELLE 33 (down trending) aPTT 60 Consultation updates, all recs are appreciated: Vascular surgery Objective OBJECTIVE BP 110/74 Pulse 86 Temp 37 ?C (98.6 ?F) (Oral) Resp 22 Ht 172.7 cm (5' 8) Wt 94.3 kg (207 lb 14.3 oz) SpO2 92% BMI 31.61 kg/m? Temp (24hrs), Av.7 ?C (98 ?F), Min:36.5 ?C (97.7 ?F), Max:37 ?C (98.6 ?F) Body mass index is 31.61 kg/m?., No results found for: HBA1C Intake/Output Summary (Last 24 hours) at 12/21/2024 1516 Last data filed at 12/21/2024 1316 Gross per 24 hour Intake 926.6 ml Output 1400 ml Net -473.4 ml LABORATORY: BLOOD GAS: CBC: Recent Labs 12/21/24 0936 12/21/24 0428 12/20/24 0200 WBC 7.80 7.69 8.65 HB 9.7* 9.2* 11.6 HCT 30.1* 27.9* 34.6* PLT 173 151 180 MCV 96.8 96.2 92.5 RDWCV 12.4 12.3 12.2 COAG: Recent Labs 12/21/24 0936 12/21/24 0428 12/20/24 2130 12/20/24 1746 12/20/24 1654 12/20/24 0831 12/20/24 0200 APTT 101.6* 49.0* 40.7* >139.0* EXTREMELY ABNORMAL RESULT. No clot detected at 320 seconds. Refer to anticoagulation nomogram for further actions.* 50.1* 60.4* INR -- -- -- -- -- -- 1.1 CMP: Recent Labs 12/21/24 0428 12/20/24 0200 GLUC 109* 111* NA 141 137 K 3.9 3.8 CHLOR 107 102 CO2 25 25 ANION 9 10 BUN 10 12 CREAT 0.74 0.71 MG -- 1.9 URINALYSIS:No results for input(s): PH, SPGR, UGLUC, UBILI, UKET, UHB, UPROT, UROBIL, UWBC, SSA in the last 168 hours. Invalid input(s): NITR Cardiac:No results for input(s): CKTEST, CKMB, CKMBP, TROPONIN, BNP in the last 168 hours. Microbiology: Positive Micro-30 Days No results found for the last 720 hours. IMAGING: CT chest outside: extensive bilateral PE with the most proximal emboli located at the right interlobular artery and distal left main pulmonary artery, extending into the lobar, segmental, and subsegmental branches in every lobe. The main pulmonary artery measures 2.9 cm in diameter. Signs of right heart strain with bowing of the IV septum and reflux of the contrast into the hepatic veins; RV/LV ratio 2. US DVT lower extremities: positive for acute distal DVT (peroneal vein). Negative for proximal DVT b/l. Echo: -The right ventricle is n (more content not included)... [facility] 12-21-2024 Note HNO ID: [id number] Author: GALI ZHENG MD Service: Critical Care Author Type: Physician Type: Progress Notes Filed: 12/21/2024 11:35 Note Text: [facility] STAFF PHYSICIAN NOTE OF PERSONAL INVOLVEMENT IN CARE I have reviewed the progress note obtained and documented by the Resident. I have personally performed a face to face assessment of the patient and have personally participated on the vera components of the history, exam and medical decision making. I have discussed the case and management of the patient's care. The following comments revise or confirm relevant vera components of the note. INTERVAL EVENTS Underwent mechanical thrombectomy with femoral access. Noted small groin hematoma On heparin gtt. Hb 11.6>9.2 >9.7 IMPRESSION: 69 year old female with past medical history as oultined in the resident note. Most notable for with recent root implantation under [place] (early November) patient came to ED on 12/19/24 due to pleuritic chest pain, dyspnea Current MICU problems and plans outlined below. PROBLEMS: # Unprovoked intermediate-high risk PE with proximal thombi in interlobar R PA, WILL . RV strain (CT, high proBNP, high trops) s/p mechanical thrombectomy 12/20 c/b small groin hematoma #acute hypoxic resp failure 2/2 PE #acute distal DVT in L peritoneal/calf vein Active Hospital Problems Diagnosis Pulmonary embolism, bilateral (HCC) Respiratory failure with hypoxia (HCC) PLAN: Neuro: no acute issues CV: ECHO showing RV strain. Will transition to DOAC if ok with surgery given small groin hematoma. I feel is reasonable to start. Resp: NC for Spo2 >92%. Pulm consult ID: no acute issues GI: advanced diet as tolerated. /electrolytes. No issues Hematology: daily CBC Endo: ICU protocol ICU prophylaxis: DVT prophylaxis with heparin gtt. GI prophylaxis with not needed Code status/POA: full code PT OT Ok to transfer to [facility] Portions of this note have been copied forward from the previous day's documentation. Patient/Family/Staff Updated This patient has a high probability of sudden, clinically significant deterioration, which requires the highest level of physician preparedness to intervene urgently. I managed/supervised life or organ supporting interventions that required frequent physician assessment. I devoted my full attention to the direct care of this patient for the amount of time indicated below. Time I spent with family or surrogate(s) is included only if the patient was incapable of providing the necessary information or participating in medical decision making. Time devoted to teaching and to any procedures I billed separately is not included. Critical Care Documentation: The patient has the following organ/system impairment(s): Pulmonary embolism Time spent providing critical care services: 40 minutes. Gali Arechiga MD Staff physician Pulmonary and [facility] Care Medicine [facility] Cellphone/pager: [phone] 12/21/2024 [facility] 12-21-2024 Note HNO ID: [id number] Author: YOEL HOLLEY MD Service: Vascular Surgery Author Type: Resident Type: Progress Notes Filed: 12/26/2024 18:30 Note Text: Attestation signed by oYel Holley MD at 12/26/2024 6:30 PM Attending Note I discussed with resident. The patient was not examined by the attending. I reviewed the resident's note. I agree with the resident's assessment and plan unless otherwise noted. Signature: Yoel Holley MD Date: 12/26/2024. Time: 6:30 PM Vascular Surgery Progress Note SERVICE DATE: December 21, 2024 Vascular and Thoracic Service Pager: For questions or concerns Mon-Fri 6a-5p please page [phone]. After 5pm and on Weekends and Holidays, please page [phone] if in ICU or [phone] if on RNF. Subjective SUBJECTIVE: S/p pulmonary artery mechanical thrombectomy on 12/20. On room air this morning. Denies any chest pain or shortness of breath. R common femoral vein access site with small residual hematoma, stable and soft to palpation. Denies N/V/CP/SOB Diet: DIET REGULAR Objective OBJECTIVE: Vitals: Temp (24hrs), Av.6 ?C (97.8 ?F), Min:36.5 ?C (97.7 ?F), Max:36.6 ?C (97.9 ?F) BP 87/54 Pulse 78 Temp 36.6 ?C (97.9 ?F) Resp 13 Ht 172.7 cm (5' 8) Wt 91.5 kg (201 lb 11.5 oz) SpO2 91% BMI 30.67 kg/m? O2 Therapy: Nasal Cannula IANDO: Date 12/20/24699 - 12/21/2465812/21/24699 - 12/22/24 0659 Shift 9510-6983 2565-9090 4759-5300 24 Hour Total 7475-2951 8506-4533 8230-0226 24 Hour Total INTAKE IV 50 50 Volume (mL) (magnesium sulfate iv piggyback in sterile water 2 g 50 mL) 50 50 Shift Total 50 50 OUTPUT Urine 400 619 428 5243 Void (ml) 400 661 203 9480 Urine Incontinence/Not Saved 1 x 1 x # of BMs Number of BMs 0 x 0 x 0 x Shift Total 400 134 217 3406 Weight (kg) 91.5 91.5 91.5 91.5 91.5 91.5 91.5 91.5 MEDICATIONS Current Facility-Administered Medications Medication Dose Route Frequency sodium chloride 0.9 % (flush) 2-10 mL (BD POSIFLUSH) 2-10 mL INTRAVENOUS DIRECTED PRN And perflutren lipid microspheres 1.1 mg/mL 1.3 mL injection (DEFINITY) 1.3 mL INTRAVENOUS DIRECTED PRN heparin iv infusion 25,000 units in NaCl 0.45% 250 mL STANDARD NOMOGRAM 0-3,000 Units/hr INTRAVENOUS CONTINUOUS And heparin RATE CHANGE bolus 1,000-10,000 Units for subtherapeutic PTTAC results 1,000-10,000 Units INTRAVENOUS PRN NaCl 0.9% iv flush bag 20 mL INTRAVENOUS PRN Labs: Recent Labs 12/21/24 0428 12/20/24 0200 NA 141 137 K 3.9 3.8 CHLOR 107 102 CO2 25 25 BUN 10 12 CREAT 0.74 0.71 GLUC 109* 111* ANION 9 10 CA 8.1* 8.8 MG -- 1.9 WBC 7.69 8.65 HB 9.2* 11.6 HCT 27.9* 34.6* PLT 151 180 INR -- 1.1 Physical Exam: GENERAL: No distress, Alert NEURO: AANDOx3, CN II-XII grossly intact HEENT: Normocephalic, atraumatic LUNGS: Equal chest rise, Unlabored breathing O2 Therapy: Nasal Cannula CARDIAC: Regular rate as above, warm extremities ABDOMEN: Soft, non-tender, non-distended EXTREMITIES: Right groin with small residual hematoma, stable and remains soft. Slight TTP PULSES: palpable b/l femoral, DP/PT SKIN: Skin color, texture, turgor normal, No rashes or lesions Assessment AND Plan ASSESSMENT AND PLAN: Assessment Active Hospital Problems Diagnosis Date Noted Pulmonary embolism, bilateral (HCC) 12/20/2024 Respiratory failure with hypoxia ([facility]) 12/20/2024 Assessment: 69 year old female w/ PMH of HLD who presents w/ B/L submassive PE and DVT of LLE for which vascular surgery was consulted. Hospital Course/Operations/Procedures: 12/20/2024 Procedure(s): ANGIOGRAM PULMONARY BILATERAL RADIOLOGICAL Plan: Bilateral submassive PE, LLE DVT - S/p US guided common femoral vein access, pelvic and IVC venogram, pulmonary angiogram, pulmonary artery mechanical thrombectomy - Small right groin hematoma, stable, remains soft - Prolene suture removed at bedside this morning - Bilateral DP/PT signals present. No LE swelling or discoloration - Continue heparin gtt - Vascular surgery to follow peripherally - Continue care per primary team Discussed with attending: Dr. Holley SIGNATURE: Vivian Feldman MD PATIENT NAME: Shannan Duarte DATE: December 21, 2024 TIME: 7:31 AM Pager: [phone] Vascular and Thoracic Service Pager: For questions or concerns Mon-Fri 6a-5p please page [phone]. After 5pm and on Weekends and Holidays, please page [phone] if in ICU or [phone] if on RNF. [facility] 12-20-2024 Note HNO ID: [id number] Author: MIN JASSO MD Service: General Surgery Author Type: Resident Type: Plan of Care Filed: 12/20/2024 19:49 Note Text: Patient seen and examined at bedside. Dressing was taken down at bedside, no surrounding skin changes, no swelling, no color changes. Bilateral lower extremity pulses DP 2+. Equal sensation to bilateral lower extremities. Moves all extremities to command. Min Jasso MD [facility] 12-20-2024 Note HNO ID: [id number] Author: VY ALVAREZ RPh Service: Pharmacy Author Type: Pharmacist Type: Plan of Care Filed: 12/21/2024 18:22 Note Text: PHARMACY MEDICATION REVIEW Patient Name: Shannan Duarte : 1955 Addendum: medication history reviewed by pharmacist 12/21/2024 Vy Alvarez RPh The following medications were updated within the [employer] medication list: Medications ADDED to [employer] medication list atorvastatin (LIPITOR) 10 mg tablet Take 10 mg by mouth daily at bedtime. therapeutic multivitamin-minerals (THERA-M PLUS) 9 mg iron-400 mcg tablet Take 1 tablet by mouth once daily. coenzyme Q10 (CO Q-10) 100 mg cap capsule Take 100 mg by mouth once daily. Medications CHANGED on [employer] medication list Medications REMOVED from [employer] medication list Additional comments: Verified medication information with e-scripts/dispense report, [facility] and chart review. Confirmed medications with patient. Patient stated taking atorvastatin, multivitamin and coQ10 - added to med list. Called [facility] pharmacy to verify atorvastatin 10 mg lasted filled 12/11/2024 for 90 days. Patient stated no longer taking fenofibrate - did not add to med list. Required follow up actions for nursing: None The below information represents the best possible medication history: Yes Medication history completed by: [employer] Mounter: Adrienne Valle ([employer]) Source of history: Patient: Reliability of source: Appears reliable, clearly identified: Medication name, Medication dose, Medication route, and Medication frequency, Pharmacy records: e-scripts/dispense report, [facility] [phone], and [facility] records Medication nonadherence identified: No barriers noted Reconciliation completed: Yes Completed Patient interested in Bedside Delivery Services or using OP Pharmacy at discharge? Unable to assess Preferred outpatient pharmacy: e- [facility] [address] [place] [id number] [address] [facility] [phone] Allergies: No Known Allergies Prior to Admission Medications Prescriptions Last Dose Informant Patient Reported? Taking? atorvastatin (LIPITOR) 10 mg tablet Yes Yes Sig: Take 10 mg by mouth daily at bedtime. coenzyme Q10 (CO Q-10) 100 mg cap capsule Yes Yes Sig: Take 100 mg by mouth once daily. therapeutic multivitamin-minerals (THERA-M PLUS) 9 mg iron-400 mcg tablet Yes Yes Sig: Take 1 tablet by mouth once daily. Facility-Administered Medications: None Adrienne Valle (Pillowcase Cleaner)[phone] 12/20/2024 [facility] 12-20-2024 Note HNO ID: [id number] Author: JEFF LNAD LSW Service: Care Management Author Type: Cribber Type: Care Mgt Initial Assessment Filed: 12/20/2024 11:35 Note Text: CARE MANAGEMENT: ASSESSMENT AND DISCHARGE PLAN SERVICE DATE: December 20, 2024 SERVICE TIME: 11:32 AM PCP: Ginna Armstrong MD Primary Contact: Extended Emergency Contact Information Primary Emergency Contact: boy duarte Mobile Relation: Spouse Admission Status: Inpatient Insurance Provider: [employer] HMO Discharge Planning requested by: Per Department Practice Potential Transition Plans To Be Determined Advance Directives Current Advance Directive: None Cinder Pitman Attempted to Assist with AD Completion: Yes Action: Patient Unwilling Current Living Arrangements and Support Lives with: Spouse/significant other Type of Residence: Private Residence (House) Does the patient have to climb stairs at home?: Yes, stairs outside the home, stairs within the home Support: Family members, Spouse/significant other How do you manage to accomplish the following: Independent: Ambulation, Bathe/Shower, Dress, Meals/Meal Prep, Going to the bathroom, Medication Management, Transportation to appointments/community Current Services/Equipment Current Post-Acute Service(s): None Discharge Planning Patient Goal(s): General wellness, Be able to go home, Independent living [place] of Choice Explained: [place] of Choice Given: No Reason Not Given: Unable to complete with this assessment - revisit Are you interested in bedside delivery of your medications? No Discharge Planning Participant(s): Patient, Spouse/significant other Patient/Family Comments: Caregiver Assessment: Caregiver is ready, willing and able to meet the patient's needs as recommended by the inter-professional team: No Transport at Discharge: Transportation Arrangements: Car Destination: home Needs Prior to Discharge: Needs Prior to Discharge: OT/PT Evaluation Post-Acute Discharge Plan: SW met with patient and family at bedside, patient from home with . Patient independent with adl's. Patient is retired. Patient drives. Patient has a lot of stairs to do at home. Patient has no services or equipment at home. Patient +pcp and +rx. Patient denies any issues with obtaining food or meds. Patient has no hx of snf or hhc. Patient's family will transport patient home at discharge. Patient may benefit from PT/OT evaluation for discharge planning. SW/CM to follow for discharge planning. SIGNATURE: CATHLEEN Multani PATIENT NAME: Shannan Duarte DATE: December 20, 2024 TIME: 11:31 AM [facility] 12-20-2024 Note HNO ID: [id number] Author: GALI ZHENG MD Service: Critical Care Author Type: Physician Type: Progress Notes Filed: 12/20/2024 10:07 Note Text: [facility] STAFF PHYSICIAN NOTE OF PERSONAL INVOLVEMENT IN CARE I have reviewed the progress note obtained and documented by the Resident. I have personally performed a face to face assessment of the patient and have personally participated on the vera components of the history, exam and medical decision making. I have discussed the case and management of the patient's care. The following comments revise or confirm relevant vera components of the note. INTERVAL EVENTS IMPRESSION: 69 year old female with past medical history as oultined in the resident note. Most notable for with recent root implantation under [place] (early November) patient came to ED on 12/19/24 due to pleuritic chest pain, dyspnea Current MICU problems and plans outlined below. PROBLEMS: # Unprovoked intermediate-high risk PE with proximal thombi in interlobar R PA, WILL . RV strain (CT, high proBNP, high trops) #acute hypoxic resp failure 2/2 PE #acute distal DVT in L peritoneal/calf vein Active Hospital Problems Diagnosis Pulmonary embolism, bilateral (HCC) PLAN: Neuro: no acute issues CV: ECHO. Contacted vascular surgery for catheter based thrombectomy. Keep SBP >90. Heparin gtt. Resp: NC for Spo2 >92%. ID: no acute issues GI: NPO. /electrolytes. No issues Hematology: daily CBC Endo: ICU protocol ICU prophylaxis: DVT prophylaxis with heparin gtt. GI prophylaxis with not needed Code status/POA: full code Portions of this note have been copied forward from the previous day's documentation. Patient/Family/Staff Updated This patient has a high probability of sudden, clinically significant deterioration, which requires the highest level of physician preparedness to intervene urgently. I managed/supervised life or organ supporting interventions that required frequent physician assessment. I devoted my full attention to the direct care of this patient for the amount of time indicated below. Time I spent with family or surrogate(s) is included only if the patient was incapable of providing the necessary information or participating in medical decision making. Time devoted to teaching and to any procedures I billed separately is not included. Critical Care Documentation: The patient has the following organ/system impairment(s): Pulmonary embolism Time spent providing critical care services: 40 minutes. Gali Arechiga MD Staff physician Pulmonary and Critical Care Medicine [facility] Cellphone/pager: [phone] DATE of SERVICE: December 20, 2024 9:48 AM [facility] 12-20-2024 Note HNO ID: [id number] Author: GALI ZHENG MD Service: Critical Care Author Type: Physician Type: Progress Notes Filed: 12/21/2024 08:08 Note Text: MICU PROGRESS NOTE PATIENT NAME: Shannan Duarte REASON FOR ADMISSION:Bilateral pulmonary embolism with possible candidate for thrombectomy LOS: 0 Subjective HPI Ms. Shannan Duarte is a 69 year old female with PMH of dyslipidemia and recent root canal procedures and oral implantation surgery presented to the [facility] ED on 12/19 with complaints of acute onset shortness of breath associated with chest pain and increased sweating. The patient was apparently well until mid of october when she started developing left knee pain, which was acute in onset, 7-8 in pain scale. Following her root canal on November 07, she was given 5 days course of prednisone which drastically improved her pain which was similar to what she experienced post-oral implantation course of prednisone. Because of the pain her activities in general weren't affected much, she remained mobile but cautious not to stress the leg. X ray leg ordered during her PCP visit which was negative. She even visited ortho in the beginning of November for the same complaints and received intrasynovial corticosteroid injection. Beginning from 12/16 pt started experiencing intermitted sharp chest pains that lasted for 10-15 mins associated with little breathing difficulty but resolved later. She thought that she might be pulling some muscles since she felt most of it in the back, lower lateral chest area. On 12/19, she experienced sever chest pain which was sudden in onset, associated with palpitations, breathing difficulty, diaphoresis. On arriving to [place] ED, work up revealed bilateral PE with right heart strain with bowing of IV septum and reflux of the contrast into the hepatic veins. She was initially desaturated upto 87% in RA, put on 2l NC, saturating at 94-95% since then. No history of loss of appetite, intentional weight loss, fever, chills. No prior history of DVT, history of malignancy. She is up to date with her annual health screenings. She is transferred to [facility] MICU for PE management with possibility of thrombectomy. INTERVAL EVENTS No acute event overnight. This morning, patient was looking well, not in any acute distress. She had no complaints. Pertinent results include: DVT positive for acute calf DVT int he left peroneal vein. NT-pro BNP 2723 CHERELLE 33 (down trending) aPTT 60 Consultation updates, all recs are appreciated: Vascular surgery Objective OBJECTIVE BP 127/83 Pulse 77 Resp 21 Ht 172.7 cm (5' 8) Wt 91.5 kg (201 lb 11.5 oz) SpO2 94% BMI 30.67 kg/m? No data recorded. Body mass index is 30.67 kg/m?., No results found for: HBA1C Intake/Output Summary (Last 24 hours) at 12/20/2024 0704 Last data filed at 12/20/2024 0636 Gross per 24 hour Intake -- Output 500 ml Net -500 ml LABORATORY: BLOOD GAS: CBC: Recent Labs 12/20/24 0200 WBC 8.65 HB 11.6 HCT 34.6* PLT 180 MCV 92.5 RDWCV 12.2 COAG: Recent Labs 12/20/24 0200 APTT 60.4* INR 1.1 CMP: Recent Labs 12/20/24 0200 GLUC 111* NA 137 K 3.8 CHLOR 102 CO2 25 ANION 10 BUN 12 CREAT 0.71 MG 1.9 URINALYSIS:No results for input(s): PH, SPGR, UGLUC, UBILI, UKET, UHB, UPROT, UROBIL, UWBC, SSA in the last 168 hours. Invalid input(s): NITR Cardiac:No results for input(s): CKTEST, CKMB, CKMBP, TROPONIN, BNP in the last 168 hours. Microbiology: Positive Micro-30 Days No results found for the last 720 hours. IMAGING: CT chest outside: extensive bilateral PE with the most proximal emboli located at the right interlobular artery and distal left main pulmonary artery, extending into the lobar, segmental, and subsegmental branches in every lobe. The main pulmonary artery measures 2.9 cm in diameter. Signs of right heart strain with bowing of the IV septum and reflux of the contrast into the hepatic veins; RV/LV ratio 2. US DVT lower extremities: positive for acute distal DVT (peroneal vein). Negative for proximal DVT b/l. Echo: -The right ventricle is normal in size. Right ventricular systolic function is mildly decreased. RV systolic tissue. Estimated right ventricular systolic pressure is likely underestimated due to a weak or incomplete tricuspid regurgitation signal and is, at least, 31 mmHg consistent with normal pulmonary artery pressures. Estimated right atrial pressure is 8 mmHg based on IVC assessment. -Left ventricle is normal in size. EF+59% No results found for: LVEF Physical Exam Constitutional: General: She is not in acute distress. Appearance: Normal appearance. HENT: Mouth/Throat: Mouth: Mucous membranes are moist. Cardiovascular: Rate and Rhythm: Normal rate. Pulmonary: Breath sounds: Normal breath sounds. Musculoskeletal: Right lower leg: (more content not included)... [facility] 12-19-2024 Discharge summary [facility] 12-19-2024 Radiology Diagnostic study note [facility] Imaging Services [address] [place] [address] CTA Chest W/WO Contrast MR#: [id number] Acct: [id number] Name: SHANNAN DUARTE Rep #: [id number] : 1955 F 69 From: Ngoc Onofre MD PCP: Dr. Ginna Armstrong MD Status: REG ER Study:CTA Chest W/WO Contrast Date of Exam: 12/19/24 Exam# [id number] Ordering Dr: Gustavo Delatorre DO PROCEDURE: CTA CHEST W/WO CONTRAST 12/19/2024 REASON FOR EXAM: PE, SHORTNESS OF BREATH TECHNIQUE: CTA CHEST W/WO CONTRAST Multiplanar Sagittal and Coronal images were obtained. 3D post processing was performed CONTRAST: Isovue 370 VOLUME: 100 mL One or more dose reduction techniques were used (e.g., Automated exposure control, adjustment of the mA and/or kV according to patient size, use of iterative reconstruction technique). RADIATION DOSE SUMMARY: CTDlvol: 14.3 mGy DLP: 445 mGycm COMPARISON: CT chest 08/26/2024 FINDINGS: Hardware: None. Lymph nodes: No significant lymphadenopathy. Heart: There is bowing of the interventricular septum towards the left ventricle. RV/LV Diameter Ratio is approximately 2. Mild coronary calcifications. Thoracic Aorta: No thoracic aortic aneurysm or dissection. Calcified atherosclerosis. Pulmonary Vessels: There are pulmonary emboli bilaterally coming beginning at the right interlobar artery and distal aspect of the left main pulmonary artery, and extending into the lobar, segmental, and subsegmental branches in every lobe. The main pulmonary artery measures 2.9 cm in diameter, at the upper limit of normal. Lungs and Airways: Central airways are predominantly clear. Calcified granulomain the right lower lobe. No focal consolidation. Pleura: No effusion. Upper Abdomen: There is reflux of contrast into the IVC and hepatic veins. Bones: Unremarkable CT/CTA Chest W/WO Contrast IMPRESSION: 1. Extensive bilateral pulmonary emboli, with the most proximal emboli located at the right interlobar artery and distal left main pulmonary artery. 2. Findings which are worrisome for right heart strain including bowing of the interventricular septum and reflux of contrast into the hepatic veins. Malone Alert: Pulmonary emboli with suggestion of right heart strain The critical information above was relayed directly by me by telephone to Gustavo Rader on 12/19/2024 at 9:13 pm with readback verification. Reading Location: [facility] CC: Dr. Gustavo Rader DO; Dr. Ginna Armstrong MD ~ Parcel [employer]: Signed [facility] 12-19-2024 Radiology Diagnostic study note [facility] Imaging Services [address] [place] [address] Chest 1 View (Portable) MR#: [id number] Acct: [id number] Name: SHANNAN DUARTE Rep #: [id number] : 1955 F 69 From: Ngoc Onofre MD PCP: Dr. Ginna Armstrong MD Status: REG ER Study:Chest 1 View (Portable) Date of Exam: 12/19/24 Exam# [id number] Ordering Dr: Gustavo Delatorre DO PROCEDURE: CHEST 1 VIEW (PORTABLE) 12/19/2024 REASON FOR EXAM: CHEST PAIN TECHNIQUE: Frontal view of the chest. COMPARISON: CT chest on 08/26/2024 FINDINGS: Hardware: None Heart: Not significantly enlarged. Aortic atherosclerosis. Lungs: No focal consolidation or pleural effusion. Eventration of the right hemidiaphragm. Bones: Degenerative changes are identified within the thoracic spine. RAD/Chest 1 View (Portable) IMPRESSION: No acute cardiopulmonary abnormality. Reading Location: [facility] CC: Dr. Gustavo Rader DO; Dr. Ginna Armstrong MD ~ [employer]: Signed [facility] 12-19-2024 Discharge summary Note Date/Time December 19, 2024 11:00pm [facility] Medical Records Department [address] [place] [address] Emergency Department Summary 12/19/24 MR#: [id number] Acct: [id number] Name: SHANNAN DUARTE Rep #:[id number] : 1955 69 From: Gustavo giron DO PCP: Dr. Ginna Armstrong MD Status:REG ER Location: ED HPI History of Present Illness Chief Complaint: Palpitations Narrative Narrative: Chief complaint and HPI: Palpitations. 69-year-old female with past medical history of HLD presents for evaluation of palpitations and exertional shortness of breath. Patient states for the past 3 days she has been having progressivelyworsening exertional shortness of breath. Denies any orthopnea. Denies any bilateral lower extremity swelling or pain. Patient denies any chest pain but states with her exertional dyspnea she develops palpitations. States she recently had surgery approximately 1 month ago on her teeth. Not on blood thinners. She denies any fever, chills, URI symptoms, cough, abdominal pain, nausea, vomiting. Review of systems: See HPI Medications: As listed on the chart Allergies: As listed on the chart PFSH: Per chart Vital signs: As listed on the chart. Reviewed. Physical exam: Gen: A&O x3, NAD Head: Normocephalic, atraumatic Eyes: No sclera icterus, conjunctiva clear ENT: Moist mucous membranes Neck: Trachea midline, No JVD CV: Tachycardic, regular rhythm, no murmurs, no peripheral edema Resp: Lungs CTA BL, no w/r/c, on 2 L nasal cannula GI: Abd soft, non-distended, non-tender, no r/r/g Musc: Full ROM, no deformity Skin: Warm, dry Neuro: Alert, oriented, grossly intact, sensation intact Psych: Cooperative, appropriate mood and affect [facility] Medical History Hyperlipemia Hx of smoking Dental implant pain Home Medications ?Medication ?Instructions ?Recorded ?Last Taken ?Type atorvastatin 10 mg tablet 10 mg PO QHS 12/19/24 Unknow n History fenofibrate nanocrystallized 145 145 mg PO DAILY 12/19 Unknown History mg tablet Held on 12/19/24. Instructions: stop taking d/t knee pain multivitamin .ROUTE 12/19/24 Unknown Hist ory Allergy/AdvReac Type Severity Reaction Status Date / Time No Known Allergies Allergy Verified 12/19/24 19:27 Surgical History H/O: hysterectomy Hx of breast reduction, elective Social History Smoking Status: Heavy Smoker (>10/day) EXAM Physical Exam Const Vital Signs: 12/19/24 19:27 12/19/24 19:28 12/19/24 19:33 Temperature 97 F L Temperature Source Temporal Pulse Rate 107 H Respiratory Rate 16 Respiratory Effort Blood Pressure 120/79 Blood Pressure Mean 92 Pulse Ox 95 87 95 Oxygen Delivery Method Nasal Cannula Room Air Oxygen Flow Rate (L/min) 2 2 12/19/24 20:13 12/19/24 20:27 12/19/24 20:44 Temperature Temperature Source Pulse Rate 91 Respiratory Rate 19 H Respiratory Effort Short of Breath Blood Pressure 122/84 H Blood Pressure Mean 96 Pulse Ox 85 94 Oxygen Delivery Method Room Air Nasal Cannula Oxygen Flow Rate (L/min) 2 12/19/24 20:49 12/19/24 21:50 12/19/24 22:00 Temperature 98.1 F Temperature Source Pulse Rate 88 82 79 Respiratory Rate 24 H 19 H 18 Respiratory Effort Blood Pressure 102/69 110/73 123/74 H Blood Pressure Mean 80 85 90 Pulse Ox 98 99 95 Oxygen Delivery Method Nasal Cannula Nasal Cannula Oxygen Flow Rate (L/min) 2 2 MDM MDM MDM Narrative Medical decision making narrative: 69-year-old female with past medical history of HLD presents for evaluation of palpitations and exertional shortness of breath. Associated symptoms are palpitations. Patient recently had surgery approximately 1 month ago on her teeth. Patient was found to be hypoxic at 87% on room air. Placed on 2 L nasalcannula with improvement in oxygen saturations. Otherwise vitals are unremarkable except for mild tachycardia. Differential diagnosis includes but is not limited to PE, ACS, pneumonia, CHF, electrolyte abnormality, MILTON, thyroiddisease. Patient currently not having any chest pain. NS bolus ordered with CTA chest given high risk for PE. CBC with leukocytosis of 12. No anemia. Platelets unremarkable. BMP relatively unremarkable except for hyperglycemia. Magnesium level unremarkable. TSH unremarkable. Troponin elevated at 55. Although patient is not having any chest pain aspirin ordered. BNP elevated at 2686. CT chest positive for PE. Patient has extensive bilateral pulmonary emboli with the most proximal emboli located at the right interlobar artery and distal left main pulmonary artery. Findings worsen for right heart strain including bowing of the interventricular septum and reflux of contrast into the hepatic veins. I personally spoke to radiology about the findings. IV heparin ordered with bolus. Patient was updated of all the results. On reevaluation, patient's tachycardia has resolved. Her vitals are stable without hypotension. I spoke with her hospitalist service, Dr. Wan. Agrees that patient will meet ICU admission however recommends me talking to vascular for possible thrombectomy candidate. I reached out to [facility] And spoke to their critical care team Dr. Story. Agrees that patient may be a thrombectomy candidate and accepted admission to their ICU. Transport will be arranged once ICU bed is available. Patient was updated on the plan and confirmed understanding of the plan. Patient now does endorse that she has been having left knee pain with some swelling prior to surgery. States that she was told she had a Hutson's cyst in there however nobody ever ruled out a DVT. I do not have ultrasound available at this time to evaluate for DVT. This will need to be performed at outlying facility. EKG: Interpreted by me/EM physician: EKG shows sinus tachycardia with a heart rate of105. Patient has nonspecific ST changes. I do not have a previous EKG to compare Diagnostic: Interpreted by me/EM physician: Chest x-ray without cardiomegaly, pneumothorax, pneumonia, effusion. Radiology in agreement. 45 minutes of critical care time utilized in managing the patient. This is due to high probability of and deterioration of the patient based on the patient's condition and excludes any separately billable procedures. Impression: 1. Submassive bilateral pulmonary embolisms 2. Elevated troponin secondary to #1 3. Acute hypoxia requiring nasal cannula oxygen, secondary to #1 4. Elevated BNP secondary to #1 and right heart strain Lab Data Labs: Laboratory Results - last 24 hr 12/19/24 12/19/24 12/19/24 19:47 21:28 21:55 WBC 12.0 H RBC 4.25 Hgb 13.2 Hct 38.6 MCV 90.8 MCH 31.1 MCHC 34.2 RDW Std Deviation 40.3 RDW Coeff of Carey 12.2 Plt Count 204 MPV 10.5 Immature Gran % (Auto) 0.500 Neut % (Auto) 76.9 H Lymph % (Auto) 14.3 L [place] % (Auto) 6.8 Eos % (Auto) 1.1 Baso % (Auto) 0.4 Absolute Neuts (auto) 9.2 H Absolute Lymphs (auto) 1.72 Nucleated RBC % 0 PT 13.9 INR 1.1 APTT 24.9 Sodium 138 Potassium 3.5 Chloride 100 Carbon Dioxide 23.7 Anion Gap 15 BUN 14 Creatinine 0.87 Estim Creat Clear Calc 73.76 Est GFR (MDRD) Non-Af 73 BUN/Creatinine Ratio 16.4 Glucose 142 H Calcium 9.5 Magnesium 1.8 Troponin T High Sens 55 H* Troponin T Hi Sens 2 Hr 48 H NT pro BNP II 2686 H TSH 2.930 Radiography Diagnostic Testing: Clinical Impression(s) from Imaging Studies Chest X-Ray 12/19/24 19:33 IMPRESSION: No acute cardiopulmonary abnormality. Reading Location: [id number] Chest CTA 12/19/24 20:28 IMPRESSION: 1. Extensive bilateral pulmonary emboli, with the most proximal emboli located at the right interlobar artery and distal left main pulmonary artery. 2. Findings which are worrisome for right heart strain including bowing of the interventricular septum and reflux of contrast into the hepatic veins. Malone Alert: Pulmonary emboli with suggestion of right heart strain The critical information above was relayed directly by me by telephone to Gustavo Rader on 12/19/2024 at 9:13 pm with readback verification. Reading Location: [id number] Discharge Plan Triage Chief Complaint: Palpitations ED Provider: Gustavo Rader Dx/Rx/DC Orders Prescriptions: No Action fenofibrate nanocrystallized 145 mg tablet 145 mg PO DAILY atorvastatin 10 mg tablet 10 mg PO QHS multivitamin [Daily Multivitamin] .ROUTE Primary Care Provider: Ginna Armstrong Referrals: Ginna Armstrong MD [Primary Care Provider] - Print Language: Nauruan What to do if you have Problems For any increased pain, shortness of breath, bleeding, nausea or vomiting, chestpain, or any unexpected problems, contact your Primary Care Provider. Call [facility] ([phone]) or report to the closest Emergency Room. Call 911 if necessary. 12/19/24 2300 <Electronically signed by Gustavo Rader DO> Cosigner Signature (if applicable): CC: Dr. Ginna Armstrong MD ~ Signed [facility] Work Phone: [phone] Radiology Diagnostic study note [facility] Imaging Services [address] [place] [address] Knee 4 or More Views MR#: [id number] Acct: [id number] Name: SHANNAN DUARTE Rep #: [id number] : 1955 F 69 From: Sofie Melgar MD PCP: Dr. Ginna Armstrong MD Status: REG CLI Study:Knee 4 or More Views Date of Exam: 11/24/24 Exam# [id number] Ordering Dr: Bhupendra Armstrong MD EXAM: XR Left Knee Complete, 4 or More Views CLINICAL INDICATION: PAIN IN KNEE TECHNIQUE: Four or more views of the left knee. COMPARISON: No relevant prior studies available. FINDINGS: BONES/JOINTS: Unremarkable. No acute fracture. No dislocation. SOFT TISSUES: Unremarkable. RAD/Knee 4 or More Views IMPRESSION: No acute fracture. Reading Location: [facility] CC: Dr. Ginna Armstrong MD ~ Parcel Carrier: Signed [facility]03-09-2025 Radiology Diagnostic study note [facility] Imaging Services [address] [facility] [address] Lung Screening MR#: [id number] Acct: [id number] Name: SHANNAN DUARTE Rep #: [id number] : 1955 F 69 From: Niles Falcon DO PCP: Dr. Ginna Armstrong MD Status: REG CLI Study:Low Dose CT Lung Screening Date of Exam : 08/26/24 Exam# [id number] Ordering Dr: Bhupendra Armstrong MD PROCEDURE: LOW DOSE CT LUNG SCREENING REASON FOR EXAM: Personal history of nicotine dependence TECHNIQUE: Low Dose CT Lung Screening without contrast COMPARISON: None. FINDINGS: Heart size is within normal limits. No significant pericardial effusion. Mild LAD coronary artery calcifications. Normal caliber thoracic aorta and pulmonary arteries. No bulky adenopathy. No suspicious findings in the visualized upper abdomen. Superficial soft tissues are within normal limits. Central airways are patent. No acute infiltrates, pleural effusion or pneumothorax. Mostly calcified 5 mm nodule in the posterior right lower lobe. No other nodules or masses. No acute osseous abnormality. CT/Low Dose CT Lung Screening IMPRESSION: 1. BASED ON THE ACR LUNG RADS FOR THE MOST SUSPICIOUS NODULE (IF ANY) DESCRIBEDIN THIS REPORT, THE OVERALL LUNG RADS SCORE IS 1. 2. SMOKING CESSATION COUNSELING IS RECOMMENDED IF THE PATIENT IS STILL SMOKING. 3. Coronary artery calcifications. One or more dose reduction techniques were used (e.g., Automated exposure control, adjustment of the mA and/or kV according to patient size, use of iterative reconstruction technique). The following information is provided for reference:Lung-RADS 2022 Assessment Categories. Additional information involving Lung-RADS is available at www.acr.org. 0-INCOMPLETE 1-NEGATIVE:No nodules or definitely benign nodules. Complete, central, popcorn,or centric ring calcifications OR fat containing 2-BENIGN APPEARANCE (based on imaging features or indolent behavior). Juxtapleural nodule: < 10mm AND solid; smooth margins; oval, lentiform, or triangular shape Solid nodule: <6mm at baseline or new< 4mm Part solid Nodule: < 6mm total mean diameter at baseline Nonsolid nodule:(GGN) < 30mm OR >=30mm stable or slowly growing Airway nodule, subsegmental at baseline, new, or stable Category 3 nodule stableor decreased in size at 6-month follow-up CT or Category 3 or 4A nodules that resolve on follow-up OR category 4B findings proven to be benign following diagnotic work up. 3 - Probably Benign (Based on imaging features or behavior) Solid Nodule: >= 6 to <8mm at baseline OR new 4 to <6mm Part-solid nodule: >= 6mm toal mean diam. with solid component <6mm at baseline OR new < 6mm total mean diam. Non-solid nodule: GGN >= 30mm at baseline or new Atypical pulmonary cyst: Growing cystic component (mean diam.) of thick-walled cyst Category 4A nodule stable or decreased in size at 3-month follow-up CT (excl.airway). 4A - Suspicious Solid nodule: >=8 to < 15mm at baseline OR growing < 8mm OR new 6 to < 8mm Part solid nodule: >= 6mm total mean diam. w/ solid component >=6mm to < 8mm at baseline OR new or growing < 4mm solid component Airway nodule, segmental or more proximal at baseline or new Atypical pulmonary cyst: Thick-walled OR multilocular at baseline OR becomes multilocular 4B - Very Suspicious Airway nodule, segmental or more proximal, and stable or growing Solid nodule: >= 15mm at baseline OR new or growing >= 8mm Part solid nodule: Solid component >= 8mm OR new or growing >= 4mm solid component Atypical pulmonary cyst: Thick-walled with growing wall thickness/nodularity OR Growing multilocular (mean diam.) OR Multilocular with increased loculation or new/increased opacity Slow-growing solid or part solid nodule w/ growth over multiple screening exams 4X - Very Suspicious Category 3 or 4 nodules with additional features that increase the suspicion forlung cancer. S - Clinically Significant or potentially significant findings (non-lung cancer) Reading Location: [facility] CC: Dr. Ginna Armstrong MD ~ Parcel Carrier: Signed [facility]01-30-2023 Telephone encounter Note* Telephone Encounter - Marlena Bashir - 07/20/2022 12:51 PM EST The following message was sent through [employer] and appt was cancelled. Patient cancelled her appt for 07/22/22 @ 1:00. [facility] you [id number] Miscellaneous Notes* Telephone Encounter - Marlena Bashir - 07/20/2022 12:51 PM EST The following message was sent through [employer] and appt was cancelled. Patient cancelled her appt for 07/22/22 @ 1:00. thank you documented in this encounterSSt. [facility] HospitalEvaluation noteNo assessment information availableWMercy Health Clermont Hospital Work Phone: Evaluation note* Diagnosis Pulmonary embolism, bilateral (HCC)- Primary Other pulmonary embolism and infarction Acute deep vein thrombosis (DVT) of popliteal vein of left lower extremity (HCC) [facility] Diagnosis Onset Date Resolution Status Admit Date Pulmonary emboli acute January 222024 10:36am [facility] Work Phone: Hospital Discharge instructionsAdditional Instructions Please follow-up with your orthopedic surgeon for repeat evaluation as I feel the increased pain was due to a joint effusion. Continue your home medication as previously directed by the Percocet for improved pain control. Return to the ER should you have any further concerns [facility] Work Phone: Reason for referral (narrative)No reason for referral information availableWMercy Health Clermont Hospital Work Phone: Summary Purpose Family History No Family History Records Found Relationship Condition Age at Onset Recorded Date/T nancy mother Hypertension Unknown father Malignant neoplasm Unknown Advance Directives No Advanced Directives Records Found Advance Directive Response Recorded Date/ Time Do you have a Healthcare Power of Senior Policy Advisor? No December 19, 2024 8:13pm Date Activated Date Inactivated Comments 12/20/2024 1:49 AM 12/22/2024 4:34 PM Question Answer Comments Full Code Order Discussed With: Patient Advance Directive Response Recorded Date/ Time Do you have a Healthcare Power of Senior Policy Advisor? No December 19, 2024 8:13pm Do you have a Healthcare Power of Senior Policy Advisor? Yes December 27, 2024 10:16pm Chief Complaint and Reason for Visit Chief Complaint Encounter for screen ing for malignant neoplasm of Chief Complaint SCREENING FOR BREAST CANCER Chief Complaint SCREENING FOR BREAST CANCER OTHER DISORDERS OF BONE DENSITY Chief Complaint Admit Date LUNG CANCER SCREEN August 26, 2024 7:41 am Chief Complaint Admit Date LUNG CANCER SCREEN August 26, 2024 7:41 am SCREENING September 13, 2024 11: 36am Chief Complaint Admit Date LUNG CANCER SCREEN August 26, 2024 7:41 am SCREENING September 13, 2024 11: 36am LEFT KNEE PAIN November 24, 2024 9:33a m Chief Complaint Admit Date LUNG CANCER SCREEN August 26, 2024 7:41 am SCREENING September 13, 2024 11: 36am LEFT KNEE PAIN November 24, 2024 9:33a m SOB December 19, 2024 7:27p m Chief Complaint Admit Date SCREENING September 13, 2024 11: 36am LEFT KNEE PAIN November 24, 2024 9:33a m SOB December 19, 2024 7:27p m UNABLE TO AMBULATE December 27, 2024 9:24p m Chief Complaint Admit Date LEFT KNEE PAIN November 24, 2024 9:33a m SOB December 19, 2024 7:27p m UNABLE TO AMBULATE December 27, 2024 9:24p m PE January 22, 2025 10: 36am Reason for Visit Admit Date Pulmonary emboli January 22, 2025 10: 36am Additional Source Comments Care Teams (unrecognized sec tion and content) Team Status: Active Member Role Status Dates Dr. Don Madrigal MD Family Provider Active Dr. Ginna Armstrong MD Primary Care Provider Active Team Status: Inactive Member Role Status Dates Dr. Ginna Armstrong MD Primary Care Provider, Attendin g Provider Active Team Status: Inactive Member Role Status Dates Dr. Ginna Armstrong MD Primary Care Prov ider, Attending Provider, Referring Provider Active Team Status: Inactive Member Role Status Dates Dr. Ginna Armstrong MD Primary Care Provider Active KEANU LiceaC Attending Provider, Referring Prov ider Active Team Status: Active Member Role Status Dates Dr. Ginna Armstrong MD Primary Care Provider Active Team Status: Inactive Member Role Status Dates Dr. Ginna Armstrong MD Primary Care Provider Active Start: August 16, 2024 End: August 16, 2024 Dr. Ginna Armstrong MD Attending Provider Active Start: August 16, 2024 End: August 16, 2024 Dr. Ginna Armstrong MD Referring Provider Active Start: August 16, 2024 End: August 16, 2024 Team Status: Active Member Role Status Dates Dr. Ginna Armstrong MD Primary Care Provider Active Start: August 26, 2024 Dr. Ginna Armstrong MD Attending Provider Active Start: August 26, 2024 Dr. Ginna Armstrong MD Referring Provider Active Start: August 26, 2024 Team Status: Inactive Member Role Status Dates Dr. Ginna Armstrong MD Primary Care Provider Active Start: August 26, 2024 End: August 26, 2024 Dr. Ginna Armstrong MD Attending Provider Active Start: August 26, 2024 End: August 26, 2024 Dr. Ginna Armstrong MD Referring Provider Active Start: August 26, 2024 End: August 26, 2024 Team Status: Inactive Member Role Status Dates Dr. Ginna Armstrong MD Primary Care Provider Active Start: September 13, 2024 End: September 13, 2024 Dr. Ginna Armstrong MD Attending Provider Active Start: September 13, 2024 End: September 13, 2024 Dr. Ginna Armstrong MD Referring Provider Active Start: September 13, 2024 End: September 13, 2024 Team Status: Inactive Member Role Status Dates Dr. Ginna Armstrong MD Primary Care Provider Active Start: November 24, 2024 End: November 24, 2024 Dr. Ginna Armstrong MD Attending Provider Active Start: November 24, 2024 End: November 24, 2024 Dr. Ginna Armstrong MD Referring Provider Active Start: November 24, 2024 End: November 24, 2024 Team Status: Active Member Role/Relationship Status Dates Dr. Ginna Armstrong MD Primary Care Provider Active Team Status: Inactive Member Role/Relationship Status Dates Dr. Ginna Armstrong MD Primary Care Provider Active Start: August 26, 2024 End: August 26, 2024 Dr. Ginna Armstrong MD Attending Provider Active Start: August 26, 2024 End: August 26, 2024 Dr. Ginna Armstrong MD Referring Provider Active Start: August 26, 2024 End: August 26, 2024 Team Status: Inactive Member Role/Relationship Status Dates Dr. Ginna Armstrong MD Primary Care Provider Active Start: September 13, 2024 End: September 13, 2024 Dr. Ginna Armstrong MD Attending Provider Active Start: September 13, 2024 End: September 13, 2024 Dr. Ginna Armstrong MD Referring Provider Active Start: September 13, 2024 End: September 13, 2024 Team Status: Inactive Member Role/Relationship Status Dates Dr. Ginna Armstrong MD Primary Care Provider Active Start: November 24, 2024 End: November 24, 2024 Dr. Ginna Armstrong MD Attending Provider Active Start: November 24, 2024 End: November 24, 2024 Dr. Ginna Armstrong MD Referring Provider Active Start: November 24, 2024 End: November 24, 2024 Team Status: Inactive Member Role/Relationship Status Dates Dr. Ginna Armstrong MD Primary Care Provider Active Start: December 19, 2024 End: December 20, 2024 Dr. Gustavo Rader , DO Emergency Provider Activ e Start: December 19, 2024 End: December 20, 2024 Motor Pool Driver Relationship Specialty Start Date End Date Ginna Armstrong MD [address] [place] [address] PCP - General Family Medicine 12/20/24 Team Status: Inactive Member Role/Relationship Status Dates Dr. Ginna Armstrong MD Primary Care Provider Active Start: September 13, 2024 End: September 13, 2024 Dr. Ginna Armstrong MD Attending Provider Active Start: September 13, 2024 End: September 13, 2024 Dr. Ginna Armstrong MD Referring Provider Active Start: September 13, 2024 End: September 13, 2024 Team Status: Inactive Member Role/Relationship Status Dates Dr. Ginna Armstrong MD Primary Care Provider Active Start: November 24, 2024 End: November 24, 2024 Dr. Ginna Armstrong MD Attending Provider Active Start: November 24, 2024 End: November 24, 2024 Dr. Ginna Armstrong MD Referring Provider Active Start: November 24, 2024 End: November 24, 2024 Team Status: Inactive Member Role/Relationship Status Dates Dr. Ginna Armstrong MD Primary Care Provider Active Start: December 19, 2024 End: December 20, 2024 Dr. Gustavo Rader DO Attending Provider Activ e Start: December 19, 2024 End: December 20, 2024 Dr. Gustavo Rader DO Emergency Provider Activ e Start: December 19, 2024 End: December 20, 2024 Team Status: Inactive Member Role/Relationship Status Dates Dr. Ginna Armstrong MD Primary Care Provider Active Start: December 27, 2024 End: December 28, 2024 Dr. Haider Orozco DO Emergency Provider Active Start: December 27, 2024 End: December 28, 2024 Team Status: Inactive Member Role/Relationship Status Dates Dr. Ginna Armstrong MD Primary Care Provider Active Start: November 24, 2024 End: November 24, 2024 Dr. Ginna Armstrong MD Attending Provider Active Start: November 24, 2024 End: November 24, 2024 Dr. Ginna Armstrong MD Referring Provider Active Start: November 24, 2024 End: November 24, 2024 Team Status: Inactive Member Role/Relationship Status Dates Dr. Ginna Armstrong MD Primary Care Provider Active Start: December 19, 2024 End: December 20, 2024 Dr. Gustavo Rader DO Attending Provider Activ e Start: December 19, 2024 End: December 20, 2024 Dr. Gustavo Rader DO Emergency Provider Activ e Start: December 19, 2024 End: December 20, 2024 Team Status: Inactive Member Role/Relationship Status Dates Dr. Ginna Armstrong MD Primary Care Provider Active Start: December 27, 2024 End: December 28, 2024 Dr. Haider Orozco DO Attending Provider Active Start: December 27, 2024 End: December 28, 2024 Dr. Haider Orozco DO Emergency Provider Active Start: December 27, 2024 End: December 28, 2024 Team Status: Inactive Member Role/Relationship Status Dates Dr. Ginna Armstrong MD Primary Care Provider Active Start: January 22, 2025 End: January 22, 2025 Dr. Ginna Armstrong MD Referring Provider Active Start: January 22, 2025 End: January 22, 2025 Dr. Baldomero Dickerson DO Attending Provider Active S tart: January 22, 2025 End: January 22, 2025 Goals (unrecognized section and content) Goals may be documented in a n alternate sectionGoals may be documented in an alternate sectionGoals may be documented in an alternate sectionGoals may be documented in an alternate sectionGoals may be documented in an alternate sectionGoals may be documented in an alternate sectionGoals may be documented in an alternate sectionGoals may be documented in an alternate sectionGoals may be documented in an alternate sectionGoals may be documented in an alternate sectionGoals may be documented in an alternate sectionGoals may be documented in an alternate sectionGoals may be documented in an alternate section INFORMATION SOURCE (unrecogn ized section and content) DATE CREATED AUTHOR 07/20/2022 [facility] DATE CREATED AUTHOR AUTHOR'S ORGANIZ ATION 12/31/2024 [facility] DATE CREATED AUTHOR AUTHOR'S ORGANIZ ATION 02/18/2025 [facility] Source Comments (unrecognize d section and content) In the event this informatio n is protected by the Federal Confidentiality of Alcohol and Drug Abuse Patient Records regulations: The Federal rules restrict any use of the information to criminally investigate or prosecute any alcohol or drug abuse patient.[facility] Reason for Visit (unrecogniz ed section and content) Reason Onset Date Comments Hospital Follow Up 12/23/2024 FOR RECORDS PERTAINING TO PATIENTS WHO ARE [...] BE BASED ON THE PRIMARY CLINICAL RECORDS. [employer] provides no warranty or guarantee of the accuracy or completeness of information in this document.
== END | disposition home or self-care (01) ==
LOC: CVS 12:49
PROVIDERS: PCP Family Medicine; Referring Provider Internal Medicine Critical Care Medicine; Visit Provider Internal Medicine Critical Care Medicine
DX: I26.99 Other pulmonary embolism without acute cor pulmonale (principal)
CPT/HCPCS: 93306

== ENCOUNTER → 2025-03-29 | Outpatient (CLI) | payer MEDICARE, SELFPAY ==
[2025-03-29 18:55] LABS: Hematocrit 38.8 % (37-47); Hemoglobin 13.2 g/dL (12.0-15.0); Immature Granulocytes Count 0.020 X10^3/uL (0.0-0.0); Mean Corp Hgb Conc 34.0 g/dL (32-36); Mean Corpuscular Volume 91.5 fL (81-99); Mean Platelet Vol. 11.1 fl (6.2-12.0); NRBC Flagged by Analyzer 0 % (0-5); Platelet Count 216 K/mm3 (150-450); RBC Distribution Width CV 12.3 % (11.6-14.6); RBC Distribution Width SD 40.9 fl (35.1-43.9); Red Blood Count 4.24 M/mm3 (4.2-5.4); White Blood Count 7.0 K/mm3 (4.4-11.0)
[2025-03-29 20:19] LABS: Anion Gap 13 (5-15); BUN 15 mg/dL (4-19); BUN/Creat Ratio 19.8 RATIO (10-20); Calcium,Total 9.4 mg/dL (7.6-11.0); Carbon Dioxide 24.3 mmol/L (21.0-32.0); Chloride 104 mmol/L (98-108); Glucose 119 mg/dL (70-99); Potassium 3.8 mmol/L (3.3-5.1)
== END | disposition home or self-care (01) ==
LOC: MTLAB 15:57
PROVIDERS: PCP Family Medicine; Referring Provider Specialist; Visit Provider Specialist
DX: N92.6 Irregular menstruation, unspecified (principal); E66.9 Obesity, unspecified
CPT/HCPCS: 36415; 80048; 85025

== ENCOUNTER → 2025-04-03 | Outpatient (CLI) | payer MEDICARE, SELFPAY ==
--- NOTE | 2025-04-03 13:52 | VDLE_ITS ---
Reason For Study Reason For Study: Lt Peroneal DVT F/U RIGHT LEFT CFV is compressible, spontaneous, phasic, competent GSV is normal. and demonstrates normal augmentation. CFV is compressible, spontaneous, phasic, competent, Procedure and demonstrates normal augmentation. This is a venous duplex using B-mode, color flow and FV is compressible, spontaneous, phasic, competent spectral Doppler. and demonstrates normal augmentation. Exam performed in department. POP V is compressible, spontaneous, phasic, competent A preliminary report was called and/or faxed to and demonstrates normal augmentation. Ginna Armstrong MD. T/P Trunk is compressible. PTV is compressible. LT PerV is compressible. VL/Venous Duplex US, Unilateral Interpretation Summary Deep veins of the left lower extremity are patent and compressible segmentally. There is no evidence of left lower extremity deep vein thrombosis. The left great saphenous vein appears patent an d compressible segmentally. Ordering Physician: Ginna Armstrong Referring Physician: Ginna Armstrong Performed By: Karen Odell, RVT
== END | disposition home or self-care (01) ==
LOC: CVS 13:51
PROVIDERS: PCP Family Medicine; Referring Provider Family Medicine; Visit Provider Family Medicine
DX: I82.452 Acute embolism and thrombosis of left peroneal vein (principal)
CPT/HCPCS: 93971